=== PATIENT | male | born 1985 | race African-American/Black ===

== ENCOUNTER → 2025-03-22 | Outpatient (CLI) | payer MEDICAID, SELFPAY ==
[2025-03-22 10:52] LABS: Hematocrit 41.1 % (40-54); Hemoglobin 14.0 g/dL (13.0-16.5); Mean Corp Hgb Conc 34.1 g/dL (32-36); Mean Corpuscular Volume 84.0 fL (80-94); Mean Platelet Vol. 10.6 fl (6.2-12.0); Platelet Count 273 K/mm3 (150-450); RBC Distribution Width CV 13.7 % (11.6-14.6); RBC Distribution Width SD 42.4 fl (35.1-43.9); Red Blood Count 4.89 M/mm3 (4.6-6.2); White Blood Count 8.6 K/mm3 (4.4-11.0)
[2025-03-22 11:52] LABS: Ammonia 40.5 umol/L (16-60)
[2025-03-22 12:09] LABS: AST(SGOT) 32 U/L (<=37); Alanine Aminotransfer ALT/SGPT 44 U/L (<=46); Albumin, Serum 4.3 g/dL (3.5-5.0); Alkaline Phosphatase 95 U/L (40-129); Anion Gap 11 (5-15); BUN 9 mg/dL (4-19); BUN/Creat Ratio 11.9 RATIO (10-20); Calcium,Total 9.2 mg/dL (7.6-11.0); Carbon Dioxide 22.8 mmol/L (21.0-32.0); Chloride 107 mmol/L (98-108); Globulin 2.7 g/dL (2.2-4.2); Glucose 107 mg/dL (70-99); Magnesium 2.0 mg/dL (1.5-2.2); Potassium 4.5 mmol/L (3.3-5.1)
[2025-03-23 15:08] LABS: KEPPRA (LEVETIRACETAM) 17.5 ug/mL (10.0-40.0)
== END | disposition home or self-care (01) ==
PROVIDERS: Referring Provider Psychiatry & Neurology Neurology; Visit Provider Psychiatry & Neurology Neurology
DX: G40.909 Epilepsy, unspecified, not intractable, without status epilepticus (principal)
CPT/HCPCS: 36415; 80053; 80177; 82140; 83735; 84443; 85027; 95819

== ENCOUNTER → 2025-04-05 | Outpatient (CLI) | payer MEDICAID, SELFPAY ==
--- NOTE | 2025-04-05 07:06 | MRI_ITS ---
PROCEDURE: BRAIN W/WO CONTRAST 04/05/2025 REASON FOR EXAM: EPILEPSY TECHNIQUE: BRAIN W/WO CONTRAST Multiplanar and multisequence images were obtained. CONTRAST: Clariscan VOLUME: 27 mL COMPARISON: None. FINDINGS: There is no abnormal intracranial contrast enhancement. There are no abnormalities of the temporal lobes. There is a normal sulcal pattern and gyral configuration. There is no evidence of acute intracranial hemorrhage or infarction. The katz-white differentiation is well preserved. There is no evidence of restricted diffusion. The ventricles and basilar cisterns are normal. There are normal flow voids demonstrated in the recognized intracranial vessels. The cerebellum and brainstem are unremarkable. The cerebellar pontine angles are normal. The craniovertebral junction is normal. The sella and suprasellar regions are normal. The orbits and retro-orbital regions are unremarkable. There is nasal septal deviation to the right. There is mucoperiosteal thickening of the ethmoidal air cells and both maxillary sinuses. There are mucous retention cysts in both maxillary sinuses. There is thickening of the nasal mucosa on the left. The mastoid air cells are clear. There is normal bone marrow signal in the skull base and calvarium. MRI/Brain W/WO Contrast IMPRESSION: 1. No evidence of intracranial pathology. 2. Chronic bilateral ethmoidal and maxillary sinusitis. 3. Left rhinitis. Reading Location: [place] [id number]
--- NOTE | 2025-04-05 07:06 | MRI_ITS ---
PROCEDURE: BRAIN W/WO CONTRAST 04/05/2025 REASON FOR EXAM: EPILEPSY TECHNIQUE: BRAIN W/WO CONTRAST Multiplanar and multisequence images were obtained. CONTRAST: Clariscan VOLUME: 27 mL COMPARISON: None. FINDINGS: There is no abnormal intracranial contrast enhancement. There are no abnormalities of the temporal lobes. There is a normal sulcal pattern and gyral configuration. There is no evidence of acute intracranial hemorrhage or infarction. The katz-white differentiation is well preserved. There is no evidence of restricted diffusion. The ventricles and basilar cisterns are normal. There are normal flow voids demonstrated in the recognized intracranial vessels. The cerebellum and brainstem are unremarkable. The cerebellar pontine angles are normal. The craniovertebral junction is normal. The sella and suprasellar regions are normal. The orbits and retro-orbital regions are unremarkable. There is nasal septal deviation to the right. There is mucoperiosteal thickening of the ethmoidal air cells and both maxillary sinuses. There are mucous retention cysts in both maxillary sinuses. There is thickening of the nasal mucosa on the left. The mastoid air cells are clear. There is normal bone marrow signal in the skull base and calvarium. MRI/Brain W/WO Contrast IMPRESSION: 1. No evidence of intracranial pathology. 2. Chronic bilateral ethmoidal and maxillary sinusitis. 3. Left rhinitis. Reading Location: [place] [id number]
--- OUTSIDE RECORDS SUMMARY | 2025-04-05 07:12 | XMS RPT_ITS | CCD ---
Author Organization [facility] ion [facility] Care Team Providers Care Relay Repairer Name Role Phone Unavailable Primary Care Provider Unavailtressa Vo MD, Leida Camacho Primary Care Provider Dave Vo MD Primary Care Provider ZEKE GONSALES Attending Unavailable RAMA LIANG Attending Unavailable ZEKE GONSALES Referring Unavailable RAMA LIANG Attending Unavailable DR LEIDA VO MD Primary Care Unavailab BETZAIDA Casanova Attending Unavailable Michael Alvarado MD Primary Care Provider [phone] REFERRING, WINNIE CORNELIUS ID Attending Unavailable DR LEIDA VO MD Primary Care Unavailab MICHAEL Erickson Primary Care Unavailable Unavailable Primary Care Provider UnavailLEIDA Desouza Referring Unavailable JODIE VOOEris Camacho Primary Care Unavailable JODIE VOOJ R Referring Unavailable JODIE VOOEris Camacho Primary Care Unavailable MICHAEL ALVARADO Attending Unavailable SELF Referring Unavailable AL SAIF, ALAA MAHDI Primary Care Unavailable AL SARAYO, ALAA MAHERIC Primary Care Unavailable Dr. Benito Palmer MD Attending Provider Dr. Benito Palmer MD Referring Provider JUSTUS SALDANA Primary Care Provider Benito Palmer Attending Unavailable Benito Palmer Attending Unavailable Benito Palmer Referring Unavailable RAJANI PINK Primary Care Unavailable RAJANI PINK Primary Care Unavailable Benito Palmer Attending Unavailable Benito Palmer Referring Unavailable Allergies Allergy Classification Reported Allergen(s) Allergy Type Date of Onset Reaction(s) Facility (10 sources) Ethinyl Estradiol / Levonorgestrel; Translations: [LEVONORGESTREL-E THINYL ESTRAD] Drug Allergy 02-13-2022 Cough [facility] Medications Current Medications Medication Drug Class(es) Dates Sig (Normalized) Sig (Original) cenobamate 100 mg oral tablet (1 source) Start: 5 take 1 tablet by mouth once daily Cenobamate (Xcopri) 100 mg tablet Active 100 mg PO DAILY 30 February 25, 2025 12:00am Begin after completing Xcopri 50mg/100mg titration pack. Cenobamate (1 source) Start: 5 take 1 tablet by mouth once Cenobamate (Xcopri Titration Pack) 12.5 mg (14)- 25 mg (14) tablets,dose pack Active 0 PO per package directions February 25, 2025 12:00am Week 1 to 4: PO PER PKG DIR Cenobamate (1 source) Start: 5 take 1 tablet by mouth once Cenobamate (Xcopri Titration Pack) 50 mg (14)- 100 mg (14) tablets,dose pack Active 0 PO per package directions February 25, 2025 12:00am Week 5 to 8 PO PER PKG DIR hydroCHLOROthiazide 25 mg oral tablet (5 sources) Thiazide Diuretic Start: 4 End: 6 take 1 tablet by mouth once daily hydroCHLOROthiazide 25 mg tablet Indications: Essential hypertension Take 1 tablet by mouth once daily. 90 tablet 3 11/30/2024 11/30/2025 Active levETIRAcetam 750 mg oral tablet (20 sources) Start: 5 End: 5 take 2 tablets by mouth twice daily Levetiracetam 750 mg tablet Active 1500 mg PO TWICE A DAY 120 February 25, 2025 1:29pm Start: 01-17-2025 End: 02-16-2025 take 2 tablets by mouth twice daily levETIRAcetam (KEPPRA) 750 mg tablet Take 2 tablets by mouth two times a day. 120 tablet 01/17/2025 02/16/2025 Active Start: 11-30-2024 End: 05-29-2025 take 1 tablet by mouth twice daily levETIRAcetam (KEPPRA) 1,000 mg tablet Indications: Seizure disorder (HCC) Take 1 tablet by mouth two times a day. 180 tablet 1 11/30/2024 05/29/2025 Active Start: 11-11-2023 End: 11-30-2024 take 1 tablet by mouth in the morning levETIRAcetam (KEPPRA) 750 mg tablet TAKE 1 TABLET (750 MG) BY MOUTH IN THE MORNING AND 1 TABLET (750 MG) BEFORE BEDTIME. 05/28/2024 11/30/2024 Discontinued (Changing Therapy/Dosage Form) Start: 02-13-2022 End: 08-12-2022 take 1 tablet by mouth twice daily levETIRAcetam (KEPPRA) 1,000 mg tablet Indications: Seizure disorder (HCC) Take 1 tablet by mouth twice daily. 60 tablet 5 02/13/2022 Active Start: 02-04-2022 End: 02-13-2022 take 1 tablet by mouth twice daily levETIRAcetam (KEPPRA) 500 mg tablet Keppra 500 mg tablet Take 1 tablet twice a day by oral route. 0 02/04/2022 02/13/2022 Discontinued Comment on above: Keppra 500 mg tablet Take 1 tablet twice a day by oral route. Take 1 tablet by sherry th twice daily. metoprolol tartrate 50 mg oral tablet (7 sources) beta-Adrenergic Akin Start: 11-30-2024 End: 11-30-2025 take 1 tablet by mouth twice daily Metoprolol Tartrate 50 mg tablet Active 50 mg PO TWICE A DAY February 25, 2025 12:00am Start: 06-16-2024 End: 11-30-2024 metoprolol tartrate, short a cting, (LOPRESSOR) 100 mg tablet Take 50 mg by mouth every 12 hours. 06/16/2024 11/30/2024 Discontinued Problems Active Problems Problem Classification Problem Date Documented Da te Episodic/Chronic Epilepsy; convulsions (20 sources) Seizure disorder; Translations: [Epilepsy, unspecified, not intractable, without status epilepticus] Onset: 02-13-2022 Chronic Epilepsy; convulsions (5 sources) Seizure disorder; Translations: [Seizure] 11-30-2024 Episodic Essential hypertension (16 sources) Essential hypertension; Translations: [Essential (primary) hypertension] Onset: 02-13-2022 Resolved: 11-30-2024 Chronic Other connective tissue disease (9 sources) Tendinitis of left rotator cuff; Translations: [Other shoulder lesions, left shoulder] Onset: 11-30-2024 11-30-2024 Episodic Other connective tissue disease (1 source) Other shoulder lesions, left shoulder; Translations: [Tendinitis of left rotator cuff] Onset: 11-30-2024 Episodic Other nervous system disorders (1 source) Personal history of other diseases of the nervous system and sense organs; Translations: [History of epilepsy] Onset: 01-17-2025 Episodic Other nutritional; endocrine; and metabolic disorders (5 sources) Body mass index 40+ - severely obese; Translations: [Morbid (severe) obesity due to excess calories] Onset: 11-30-2024 11-30-2024 Chronic Other nutritional; endocrine; and metabolic disorders (1 source) Morbid (severe) obesity due to excess calories; Translations: [Obesity, Class III, BMI 40-49.9 (morbid obesity) (HCC)] Onset: 11-30-2024 Chronic Substance-related disorders (11 sources) Smoker; Translations: [Nicotine dependence, unspecified, uncomplicated] Onset: 02-13-2022 Chronic Past or Other Problems Problem Classification Problem Date Documented Da te Episodic/Chronic Other nutritional; endocrine; and metabolic disorders (9 sources) Obese class II; Translations: [Obesity, unspecified] Onset: 02-13-2022 Resolved: 11-30-2024 Chronic Other nutritional; endocrine; and metabolic disorders (4 sources) Morbid obesity; Translations: [Morbid (severe) obesity due to excess calories] Resolved: 11-30-2024 11-30-2024 Chronic Results Test Name Value Interpretation Reference Range Facility KEPPRA (LEVETIRACETAM)on KEPPRA 17.5 ug/mL Normal 10.0-40.0 [facility] Comment on above: Result Comment: Perf ormed at: [facility] - [facility] [address] [id number] Environmental Services Floor Tech: Brina Quiroz MD, Phone: [phone] Performed By: #### L 500.4652, L3310.0000, L100.0500, J701.9520, L503.5510, L501.5200 #### [facility] [address] [place], [address] Ammoniaon 03-22-2025 Ammonia (P) [Moles/Vol] 40.5 umol/L Normal 16-60 [facility] Comment on above: Performed By: #### L 500.4050, L3310.0000, L100.0500, L501.9520, L503.5510, L501.5200 #### [facility] [address] [place], [address] Anion gap in Serum or Plasma Ordered By: Benito Palmer on 03-22-2025 Anion gap [Moles/Vol] 11 mmol/L 5-15 [facility] BUN/creatinine ratioOrdered By: Benito Palmer on 03-22-2025 Urea nitrogen/Creatinine [Mass ratio] 11.9 mg/mg 10- [facility] Bilirubin, totalOrdered By: Benito Palmer on 03-22-2025 Bilirubin [Mass/Vol] 0.45 mg/dL 0.00-1.30 [facility] CBC-Complete Blood Cnt No Di ffon 03-22-2025 Erythrocyte distribution width (RBC) [Ratio] 13.7 % Normal 11.6-14.6 [facility] Comment on above: Performed By: #### L 500.4050, L3310.0000, L100.0500, L501.9520, L503.5510, L501.5200 #### [facility] [address] [place], [address] Hematocrit (Bld) [Volume fraction] 41.1 % Normal 40-54 [facility] Comment on above: Performed By: #### L 500.4050, L3310.0000, L100.0500, L501.9520, L503.5510, L501.5200 #### [facility] [address] [place], [address] Hemoglobin (Bld) [Mass/Vol] 14.0 g/dL Normal 13.0-16.5 [facility] Comment on above: Performed By: #### L 500.4050, L3310.0000, L100.0500, L501.9520, L503.5510, L501.5200 #### [facility] [address] [place], [address] MCH (RBC) [Entitic mass] 28.6 pg Normal 27.0-32.0 [facility] Comment on above: Performed By: #### L 500.4050, L3310.0000, L100.0500, L501.9520, L503.5510, L501.5200 #### [facility] [address] [place], [address] MCHC (RBC) [Mass/Vol] 34.1 g/dL Normal 32-36 [facility] Comment on above: Performed By: #### L 500.4050, L3310.0000, L100.0500, L501.9520, L503.5510, L501.5200 #### [facility] [address] [place], [address] MCV (RBC) [Entitic vol] 84.0 fL Normal 80-94 [facility] Comment on above: Performed By: #### L 500.4050, L3310.0000, L100.0500, L501.9520, L503.5510, L501.5200 #### [facility] [address] [place], [address] Platelet mean volume (Bld) [Entitic vol] 10.6 fL Normal 6.2-12.0 [facility] Comment on above: Performed By: #### L 500.4050, L3310.0000, L100.0500, L501.9520, L503.5510, L501.5200 #### [facility] [address] [place], [address] Platelets (Bld) [#/Vol] 273 10*3/uL Normal 150-450 [facility] Comment on above: Performed By: #### L 500.4050, L3310.0000, L100.0500, L501.9520, L503.5510, L501.5200 #### [facility] [address] [place], [address] RBC (Bld) [#/Vol] 4.89 10*6/uL Normal 4.6-6.2 [facility] Comment on above: Performed By: #### L 500.4050, L3310.0000, L100.0500, L501.9520, L503.5510, L501.5200 #### [facility] [address] [place], [address] RDW SD 42.4 fl Normal 35.1-43.9 [facility] Comment on above: Performed By: #### L 500.4050, L3310.0000, L100.0500, L501.9520, L503.5510, L501.5200 #### [facility] [address] [place], [address] WBC (Bld) [#/Vol] 8.6 10*3/uL Normal 4.4-11.0 [facility] Comment on above: Performed By: #### L 500.4050, L3310.0000, L100.0500, L501.9520, L503.5510, L501.5200 #### [facility] [address] [place], [address] Carbon dioxide, total [Moles /volume] in Central venous bloodOrdered By: Benito Palmer on 03-22-2025 CO2 [Moles/Vol] 22.8 mmol/L 21.0-32.0 [facility] Chloride assayOrdered By: Ra isaac Palmer on 03-22-2025 Chloride [Moles/Vol] 107 mmol/L 98-108 [facility] Comprehensive Metabolic Prof ilon 03-22-2025 Albumin [Mass/Vol] 4.3 g/dL Normal 3.5-5.0 [facility] Comment on above: Performed By: #### L 500.4050, L3310.0000, L100.0500, L501.9520, L503.5510, L501.5200 #### [facility] [address] [place], [address] Albumin/Globulin [Mass ratio] 1.6 {ratio} Normal 0.9-2.4 [facility] Comment on above: Performed By: #### L 500.4050, L3310.0000, L100.0500, L501.9520, L503.5510, L501.5200 #### [facility] [address] [place], [address] ALK PHOS 95 U/L Normal 40-129 [facility] Comment on above: Performed By: #### L 500.4050, L3310.0000, L100.0500, L501.9520, L503.5510, L501.5200 #### [facility] [address] [place], [address] ALT [Catalytic activity/Vol] 44 U/L Normal <=46 [facility] Comment on above: Performed By: #### L 500.4050, L3310.0000, L100.0500, L501.9520, L503.5510, L501.5200 #### [facility] [address] [place], [address] AST [Catalytic activity/Vol] 32 U/L Normal <=37 [facility] Comment on above: Performed By: #### L 500.4050, L3310.0000, L100.0500, L501.9520, L503.5510, L501.5200 #### [facility] [address] [place], [address] Bilirubin [Mass/Vol] 0.45 mg/dL Normal 0.00-1.30 [facility] Comment on above: Performed By: #### L 500.4050, L3310.0000, L100.0500, L501.9520, L503.5510, L501.5200 #### [facility] [address] [place], [address] BUN/CRE 11.9 RATIO Normal 10-20 [facility] Comment on above: Performed By: #### L 500.4050, L3310.0000, L100.0500, L501.9520, L503.5510, L501.5200 #### [facility] [address] [place], [address] Calcium [Mass/Vol] 9.2 mg/dL Normal 7.6-11.0 [facility] Comment on above: Performed By: #### L 500.4050, L3310.0000, L100.0500, L501.9520, L503.5510, L501.5200 #### [facility] [address] [place], [address] Chloride [Moles/Vol] 107 mmol/L Normal 98-108 [facility] Comment on above: Performed By: #### L 500.4050, L3310.0000, L100.0500, L501.9520, L503.5510, L501.5200 #### [facility] [address] [place], [address] CO2 [Moles/Vol] 22.8 mmol/L Normal 21.0-32.0 [facility] Comment on above: Performed By: #### L 500.4050, L3310.0000, L100.0500, L501.9520, L503.5510, L501.5200 #### [facility] [address] [place], [address] Creatinine [Mass/Vol] 0.73 mg/dL Normal 0.70-1.20 [facility] Comment on above: Performed By: #### L 500.4050, L3310.0000, L100.0500, L501.9520, L503.5510, L501.5200 #### [facility] [address] [place], [address] GAP 11 Normal 5-15 [facility] Comment on above: Performed By: #### L 500.4050, L3310.0000, L100.0500, L501.9520, L503.5510, L501.5200 #### [facility] [address] [place], [place], [id number] (560) GFR/1.73 sq M.predicted among non-blacks MDRD (S/P/Bld) [Vol rate/Area] 119 mL/min/{1.73_m2} Normal >60 [facility] Comment on above: Result Comment: mL/m in/1.73m2 CKD-EPI Creatinine Equation (2020) Performed By: #### L 500.4050, L3310.0000, L100.0500, L501.9520, L503.5510, L501.5200 #### [facility] [address] [place], [address] Globulin (S) [Mass/Vol] 2.7 g/dL Normal 2.2-4.2 [facility] Comment on above: Performed By: #### L 500.4050, L3310.0000, L100.0500, L501.9520, L503.5510, L501.5200 #### [facility] [address] [place], [address] Glucose [Mass/Vol] 107 mg/dL High 70-99 [facility] Comment on above: Performed By: #### L 500.4050, L3310.0000, L100.0500, L501.9520, L503.5510, L501.5200 #### [facility] [address] [place], [address] Potassium [Moles/Vol] 4.5 mmol/L Normal 3.3-5.1 [facility] Comment on above: Performed By: #### L 500.4050, L3310.0000, L100.0500, L501.9520, L503.5510, L501.5200 #### [facility] [address] [place], [address] Sodium [Moles/Vol] 141 mmol/L Normal 133-145 [facility] Comment on above: Performed By: #### L 500.4050, L3310.0000, L100.0500, L501.9520, L503.5510, L501.5200 #### [facility] [address] [place], [address] T PROT 6.9 g/dL Normal 5.9-8.4 [facility] Comment on above: Performed By: #### L 500.4050, L3310.0000, L100.0500, L501.9520, L503.5510, L501.5200 #### [facility] [address] [place], [address] Urea nitrogen [Mass/Vol] 9 mg/dL Normal 4-19 [facility] Comment on above: Performed By: #### L 500.4050, L3310.0000, L100.0500, L501.9520, L503.5510, L501.5200 #### [facility] [address] [place], [address] Erythrocyte distribution wid th ratioOrdered By: Benito Palmer on 03-22-2025 Erythrocyte distribution width (RBC) [Ratio] 13.7 % 11.6-14.6 [facility] Erythrocyte distribution wid th standard deviationOrdered By: Benito Palmer on 03-22-2025 Erythrocyte distribution width (RBC) [Ratio] 42.4 fl 35.1-43.9 [facility] Glomerular filtration rate ( GFR) estimation/1.73 sq m using serum, plasma, or whole bOrdered By: Benito Palmer on 03-22-2025 GFR/1.73 sq M.predicted among non-blacks MDRD (S/P/Bld) [Vol rate/Area] 119 mL/min/{1.73_m2} >60 [facility] Comment on above: mL/min/1.73m2 CKD-EP I Creatinine Equation (2020) Hematocrit Auto (Bld) [Volum e fraction]Ordered By: Benito Palmer on 03-22-2025 Hematocrit (Bld) [Volume fraction] 41.1 % 40-54 [facility] Hemoglobin measurementOrdere d By: Benito Palmer on 03-22-2025 Hemoglobin (Bld) [Mass/Vol] 14.0 g/dL 13.0-16.5 [facility] - Chemistry and C hemistry - challengeOrdered By: Benito Palmer on 03-22-2025 AST [Catalytic activity/Vol] 32 U/L <38 [facility] LevetiracetamOrdered By: Ted Palmer on 03-22-2025 levETIRAcetam [Mass/Vol] 17.5 ug/mL 10.0-40.0 [facility] Comment on above: Performed at: [address] [id number] Director: Brina Quiroz MD, Phone: [phone] MCV (mean corpuscular volume ) determinationOrdered By: Benito Palmer on 03-22-2025 MCV (RBC) [Entitic vol] 84.0 fL 80-94 [facility] Magnesiumon 03-22-2025 Magnesium [Mass/Vol] 2.0 mg/dL Normal 1.5-2.2 [facility] Comment on above: Performed By: #### L 500.4050, L3310.0000, L100.0500, L501.9520, L503.5510, L501.5200 #### [facility] [address] [place], [address] Magnesium measurement (mass/ volume)Ordered By: Benito Palmer on 03-22-2025 Magnesium (Unsp spec) [Mass/Vol] 2.0 mg/dL 1.5-2.2 [facility] Mean corpuscular hemoglobin (MCH) determinationOrdered By: Benito Palmer on 03-22-2025 MCH (RBC) [Entitic mass] 28.6 pg 27.0-32.0 [facility] Mean corpuscular hemoglobin concentration (MCHC) determinationOrdered By: Benito Palmer on 03-22-2025 MCHC (RBC) [Mass/Vol] 34.1 g/dL 32-36 [facility] Mean platelet volume determi nationOrdered By: Benito Palmer on 03-22-2025 Platelet mean volume (Bld) [Entitic vol] 10.6 fL 6.2-12.0 [facility] Platelet countOrdered By: Ra isaac Palmer on 03-22-2025 Platelets (Bld) [#/Vol] 273 10*3/uL 150-450 [facility] Potassium measurement (mass/ volume)Ordered By: Benito Palmer on 03-22-2025 Potassium (Unsp spec) [Mass/Vol] 4.5 mmol/L 3.3-5.1 [facility] RBC Auto (Bld) [#/Vol]Ordere d By: Benito Palmer on 03-22-2025 RBC (Bld) [#/Vol] 4.89 10*6/uL 4.6-6.2 [facility] Serum creatinine measurement (mass/volume)Ordered By: Benito Palmer on 03-22-2025 Creatinine [Mass/Vol] 0.73 mg/dL 0.70-1.20 [facility] Serum globulin measurementOr dered By: Benito Palmer on 03-22-2025 Globulin (S) [Mass/Vol] 2.7 g/dL 2.2-4.2 [facility] Serum glucose measurement (m ass/volume)Ordered By: Benito Palmer on 03-22-2025 Glucose [Mass/Vol] 107 mg/dL High 70-99 [facility] Serum or plasma alanine ramirez otransferase (ALT) measurementOrdered By: Benito Palmer on 03-22-2025 ALT [Catalytic activity/Vol] 44 U/L <47 [facility] Serum or plasma albumin valorie urement (mass/volume)Ordered By: Benito Palmer on 03-22-2025 Albumin [Mass/Vol] 4.3 g/dL 3.5-5.0 [facility] Serum or plasma albumin/glob ulin mass ratioOrdered By: Benito Palmer on 03-22-2025 Albumin/Globulin [Mass ratio] 1.6 {ratio} 0.9-2.4 [facility] Serum or plasma alkaline kylah sphatase measurementOrdered By: Benito Palmer on 03-22-2025 ALP [Catalytic activity/Vol] 95 U/L 40-129 [facility] Serum or plasma calcium valorie urement (mass/volume)Ordered By: Benito Palmer on 03-22-2025 Calcium [Mass/Vol] 9.2 mg/dL 7.6-11.0 [facility] Serum or plasma urea nitroge n measurement (mass/volume)Ordered By: Benito Palmer on 03-22-2025 Urea nitrogen [Mass/Vol] 9 mg/dL 4-19 [facility] Sodium levelOrdered By: Elbert Palmer on 03-22-2025 Sodium [Moles/Vol] 141 mmol/L 133-145 [facility] TSH DL <= 0.005 mIU/L QnOrde red By: Benito Palmer on 03-22-2025 TSH Qn 1.270 uIU/mL 0.300-4.200 [facility] Thyroid Stim Hormone (TSH)on 03-22-2025 TSH 1.270 uIU/mL Normal 0.300-4.200 [facility] Comment on above: Performed By: #### L 500.4050, L3310.0000, L100.0500, L501.9520, L503.5510, L501.5200 #### [facility] [address] [place], [place], [id number] Total proteinOrdered By: Ted Palmer on 03-22-2025 Protein [Mass/Vol] 6.9 g/dL 5.9-8.4 [facility] Venous blood ammonia measure mentOrdered By: Benito Palmer on 03-22-2025 Ammonia (P) [Moles/Vol] 40.5 umol/L 16-60 [facility] White blood cell (WBC) count Ordered By: Benito Palmer on 03-22-2025 WBC (Bld) [#/Vol] 8.6 10*3/uL 4.4-11.0 [facility] Neurology Visit Reporton Neurology Visit Report [facility] [address], [address] [place] [address] OFFICE VISIT Date of Service: 02/25/25 MR#: [id number] Acct: [id number] Name: EVIN OVIEDO Rep #: [id number] : 1985 Provider: Dr. Benito cho MD Age/Sex: 39/M Location: [facility] Status: Signed HPI HPI Chief Complaint: Establish Care Details: History: The patient is a 39-year-old right-handed male with a past medical history of hypertension and epilepsy who presents for evaluation of his epilepsy. He is accompanied by his mother. He began to have seizures in 2022. He states that his first seizure occurred in December 2022 and was nocturnal clonic seizure (of note, records indicate that a head CT was performed on 02/04/2022 apparently for new onset seizure). He had associated tongue biting. He had postictal lethargy and confusion. He had upper back and left shoulder muscle soreness. He is continue to have some left shoulder pain since that time. He may possibly have been somewhat sleep deprived prior to the seizure otherwise he is unaware of any precipitating event. He had another nocturnal generalized seizure in January 2023 after which she was seen by a neurologist and levetiracetam was initiated. Since January 2023 he had at least 13 further seizures, the last of which occurred in December 2024. Some of the seizures were nocturnal generalized seizures. Some of the seizures occurred during wakefulness and manifested with drooling and staring episodes during which he was unresponsive and was unaware of his surroundings. Some of these daytime seizures progressed to generalized clonic seizures. He does not have any preceding aura. He has postictal confusion and lethargy. His dose of levetiracetam was increased from 1000 mg twice daily to 1500 mg twice daily following his last seizure in December 2024. He is experiencing depression and easy irritability as a side effect to levetiracetam. He reports that his prior evaluation with head MRI and EEG were unremarkable (official reports of these studies are presently not available). He does not have any history of seizures prior to 2022. He denies having numbness, weakness, dizziness, lightheadedness or vision change. He does not have any history of concussion or TALENT ACQUISITION COORDINATOR infection. He does not have any significant history. He has been experiencing headaches since around 2021. His headaches are mild right-sided headaches with which she has associated photophobia, phonophobia and nausea. He denies having neck pain. The patient was seen in the emergency room following his last seizure in December 2024. His levetiracetam level was low at that time; he states that he may have missed a dose prior to the seizure. Past Medical History: As above. There is no history of diabetes mellitus, heart disease, lung disease, stroke, seizure prior to 2022, thyroid disease, cancer, renal disease, sleep apnea, or hyperlipidemia. Social History: He smokes tobacco. He has used marijuana. His last use was 6 months ago. He denies any history of other illicit drug use. There is no history of alcohol abuse. Family History: The patient's great grandmother had a stroke. There is no family history of seizure or cerebral aneurysm. Review of Systems: As above. The patient has not had any recent fever, rash, weight change, chest pain, shortness of breath, gastrointestinal problems or urinary problems. He has some insomnia and at times awakens during the night. He snores at night. He does not have daytime hypersomnia. He has depression and anxiety. Physical Exam: General: Well-developed, well-nourished male in no acute distress. Neuro: The patient is awake and alert and responds appropriately; speech is fluent; language function is within normal limits Cranial nerves: PERRL, 3mm bilaterally; EOMI; visual ruiz are full; visual acuity is 20/30 bilaterally; face is symmetrical; tongue is midline; there are no deficits to pinprick Cerebellar system: No nystagmus or dysmetria Deep tendon reflexes: Absent at the ankles, knees, biceps bilaterally, triceps bilaterally, brachioradialis bilaterally; plantar responses are downward bilaterally Motor: Strength 5/5 in the biceps bilaterally, abductor pollicis brevis muscles bilaterally, first dorsal interosseous muscles bilaterally, triceps bilaterally, deltoid bilaterally quadriceps bilaterally and foot dorsiflexors bilaterally; no drift he does exhibit slight limitation of movement on full elevation of the left arm Sensory: There are no deficits to soft touch or vibration; slight decreased pinprick is noted in the left index finger Gait: Unremarkable HEENT: Normocephalic; atraumatic; tympanic membranes are clear Neck: No bruits Heart: Regular rhythm and rate Extremities: No cyanosis or edema; Tinel's sign is negative at the left wrist and left elbow; dorsalis pedis pulses are +2 bilaterally Sup (more content not included)... Normal [facility] Telephone Encounteron 2024 Senior Planner Authentication Interface Message Text Neurology Clinical Water Pollution Scientist Note Attempted to call patient. LVM to return call to the Neurology department to schedule a neurology appt for seizures. Letter sent JANE Barney, RN, CMSRN Clinical Water Pollution Scientist, Neurology Normal [facility] 02-05-2025 CNCO Letter Text Normal [facility] CBC W Auto Differential pane l (Bld)on 01-17-2025 Basophils (Bld) [#/Vol] 10*3/uL Normal <0.[address] [facility] Comment on above: Order Comment: Speci men Type: BLOOD SPECIMEN Ordering Facility: [facility] Address: [address] [place] [address] Performed By: #### 5 7021-8 #### [facility] CLIA [id number] [address] [place] [address] [place] Basophils/100 WBC (Bld) 0.2 % Normal [facility] Comment on above: Order Comment: Tevini deni Type: BLOOD SPECIMEN Ordering Facility: [facility] Address: [address] [place] [address] Performed By: #### 5 7021-8 #### [facility] CLIA [id number] [address] [place] [address] [place] Differential cell count method Nom (Bld) Auto Normal [facility] Comment on above: Order Comment: Speci men Type: BLOOD SPECIMEN Ordering Facility: [facility] Address: [address] [place] [address] Performed By: #### 5 7021-8 #### [facility] CLIA [id number] [address] [place] [address] [place] Eosinophils (Bld) [#/Vol] 0.15 10*3/uL Normal <0.46 [facility] Comment on above: Order Comment: Speci men Type: BLOOD SPECIMEN Ordering Facility: [facility] Address: [address] [place] [address] Performed By: #### 5 7021-8 #### [facility] CLIA [id number] [address] [place] [address] [place] Eosinophils/100 WBC (Bld) 1.4 % Normal [facility] Comment on above: Order Comment: Speci men Type: BLOOD SPECIMEN Ordering Facility: [facility] Address: [address] [place] [address] Performed By: #### 5 7021-8 #### [facility] CLIA [id number] [address] [place] [address] [place] Erythrocyte distribution width (RBC) [Ratio] 13.0 % Normal 11.5-15.0 [facility] Comment on above: Order Comment: Speci men Type: BLOOD SPECIMEN Ordering Facility: [facility] Address: [address] [place] [address] Performed By: #### 5 7021-8 #### [facility] CLIA [id number] [address] [place] [address] [place] Hematocrit (Bld) [Volume fraction] 42.9 % Normal 39.0-51.0 [facility] Comment on above: Order Comment: Speci men Type: BLOOD SPECIMEN Ordering Facility: [facility] Address: [address] [place] [address] Performed By: #### 5 7021-8 #### [facility] CLIA [id number] [address] [place], [place] [address] [place] Hemoglobin (Bld) [Mass/Vol] 14.7 g/dL Normal 13.0-17.0 [facility] Comment on above: Order Comment: Speci men Type: BLOOD SPECIMEN Ordering Facility: [facility] Address: [address] [place] [address] Performed By: #### 5 7021-8 #### [facility] CLIA [id number] [address] [place] [address] [place] Immature granulocytes (Bld) [#/Vol] 0.06 10*3/uL Normal <0.10 [facility] Comment on above: Order Comment: Speci men Type: BLOOD SPECIMEN Ordering Facility: [facility] Address: [address] [place] [address] Performed By: #### 5 7021-8 #### [facility] CLIA [id number] [address] [place] [address] [place] Immature granulocytes/100 WBC (Bld) 0.6 % Normal [facility] Comment on above: Order Comment: Speci men Type: BLOOD SPECIMEN Ordering Facility: [facility] Address: [address] [place] [address] Performed By: #### 5 7021-8 #### [facility] CLIA [id number] [address] [place] [address] [place] Lymphocytes (Bld) [#/Vol] 1.97 10*3/uL Normal 1.00-4.00 [facility] Comment on above: Order Comment: Speci men Type: BLOOD SPECIMEN Ordering Facility: [facility] Address: [address] [place] [address] Performed By: #### 5 7021-8 #### [facility] CLIA [id number] [address] [place], [place] [address] [place] Lymphocytes/100 WBC (Bld) 18.7 % Normal [facility] Comment on above: Order Comment: Speci men Type: BLOOD SPECIMEN Ordering Facility: [facility] Address: [address] [place] [address] Performed By: #### 5 7021-8 #### [facility] CLIA [id number] [address] [place] [address] [place] MCH (RBC) [Entitic mass] 28.4 pg Normal 26.0-34.0 [facility] Comment on above: Order Comment: Speci men Type: BLOOD SPECIMEN Ordering Facility: [facility] Address: [address] [place] [address] Performed By: #### 5 7021-8 #### [facility] CLIA [id number] [address] [place] [address] [place] MCHC (RBC) [Mass/Vol] 34.3 g/dL Normal 30.5-36.0 [facility] Comment on above: Order Comment: Speci men Type: BLOOD SPECIMEN Ordering Facility: [facility] Address: [address] [place] [address] Performed By: #### 5 7021-8 #### [facility] CLIA [id number] [address] [place] [address] [place] MCV (RBC) [Entitic vol] 82.8 fL Normal 80.0-100.[address] [facility] Comment on above: Order Comment: Speci men Type: BLOOD SPECIMEN Ordering Facility: [facility] Address: [address] [place] [address] Performed By: #### 5 7021-8 #### [facility] CLIA [id number] [address] [place] [address] [place] Monocytes (Bld) [#/Vol] 0.76 10*3/uL Normal <0.87 [facility] Comment on above: Order Comment: Speci men Type: BLOOD SPECIMEN Ordering Facility: [facility] Address: [address] [place] [address] Performed By: #### 5 7021-8 #### [facility] CLIA [id number] [address] [place] [address] [place] Monocytes/100 WBC (Bld) 7.2 % Normal [facility] Comment on above: Order Comment: Speci men Type: BLOOD SPECIMEN Ordering Facility: [facility] Address: [address] [place] [address] Performed By: #### 5 7021-8 #### [facility] CLIA [id number] [address] [place] [address] [place] Neutrophils (Bld) [#/Vol] 7.55 10*3/uL High 1.45-7.50 [facility] Comment on above: Order Comment: Speci men Type: BLOOD SPECIMEN Ordering Facility: [facility] Address: [address] [place] [address] Performed By: #### 5 7021-8 #### [facility] CLIA [id number] [address] [place] [address] [place] Neutrophils/100 WBC (Bld) 71.9 % Normal [facility] Comment on above: Order Comment: Speci men Type: BLOOD SPECIMEN Ordering Facility: [facility] Address: [address] [place] [address] Performed By: #### 5 7021-8 #### [facility] CLIA [id number] [address] [place] [address] [place] Nucleated RBC (Bld) [#/Vol] 10*3/uL Normal <0.01 [facility] Comment on above: Order Comment: Speci men Type: BLOOD SPECIMEN Ordering Facility: [facility] Address: [address] [place] [address] Performed By: #### 5 7021-8 #### [facility] CLIA [id number] [address] [place] [address] [place] Nucleated RBC/100 WBC (Bld) [Ratio] 0.0 /100 WBC Normal [facility] Comment on above: Order Comment: Speci men Type: BLOOD SPECIMEN Ordering Facility: [facility] Address: [address] [place] [address] Performed By: #### 5 7021-8 #### [facility] CLIA [id number] [address] [place], [place] [address] [place] Platelet mean volume (Bld) [Entitic vol] 10.6 fL Normal 9.0-12.7 [facility] Comment on above: Order Comment: Speci men Type: BLOOD SPECIMEN Ordering Facility: [facility] Address: [address] [place] [address] Performed By: #### 5 7021-8 #### [facility] CLIA [id number] [address] [place] [address] [place] Platelets (Bld) [#/Vol] 295 10*3/uL Normal 150-400 [facility] Comment on above: Order Comment: Speci men Type: BLOOD SPECIMEN Ordering Facility: [facility] Address: [address] [place] [address] Performed By: #### 5 7021-8 #### [facility] CLIA [id number] [address] [place] [address] [place] RBC (Bld) [#/Vol] 5.18 10*6/uL Normal 4.20-6.00 [facility] Comment on above: Order Comment: Speci men Type: BLOOD SPECIMEN Ordering Facility: [facility] Address: [address] [place] [address] Performed By: #### 5 7021-8 #### [facility] CLIA [id number] [address] [place] [address] [place] WBC (Bld) [#/Vol] 10.51 10*3/uL Normal 3.70-11.00 [facility] Comment on above: Order Comment: Speci men Type: BLOOD SPECIMEN Ordering Facility: [facility] Address: [address] [place] [address] Performed By: #### 5 7021-8 #### [facility] CLIA [id number] [address] [place], [place] [address] [facility] [place] Comprehensive metabolic 2000 panelon 01-17-2025 Albumin [Mass/Vol] 3.9 g/dL Normal 3.2-5.0 [facility] Comment on above: Order Comment: Speci men Type: BLOOD SPECIMEN Ordering Facility: [facility] Address: [address] [place] [address] Performed By: #### 2 4323-8, #### [facility] CLIA [id number] [address] [place] [address] [place] ALP [Catalytic activity/Vol] 112 U/L Normal 45-117 [facility] Comment on above: Order Comment: Speci men Type: BLOOD SPECIMEN Ordering Facility: [facility] Address: [address] [place] [address] Performed By: #### 2 4323-8, #### [facility] CLIA [id number] [address] [place] [address] [place] ALT [Catalytic activity/Vol] 32 U/L Normal 13-61 [facility] Comment on above: Order Comment: Speci men Type: BLOOD SPECIMEN Ordering Facility: [facility] Address: [address] [place] [address] Result Comment: Resu lts may be falsely depressed after the administration of Sulfasalazine and/or Sulfapyridine. Performed By: #### 2 4323-8, #### [facility] CLIA [id number] [address] [place], [place] [address] [place] Anion gap [Moles/Vol] 7 mmol/L Normal 5-16 [facility] Comment on above: Order Comment: Speci men Type: BLOOD SPECIMEN Ordering Facility: [facility] Address: [address] [place] [address] Performed By: #### 2 4323-8, #### [facility] CLIA [id number] [address] [place] [address] [place] AST [Catalytic activity/Vol] 20 U/L Normal 8-34 [facility] Comment on above: Order Comment: Speci men Type: BLOOD SPECIMEN Ordering Facility: [facility] Address: [address] [place] [address] Result Comment: Resu lts may be falsely depressed after the administration of Sulfasalazine and/or Sulfapyridine. Performed By: #### 2 4323-8, #### [facility] CLIA [id number] [address] [place], [place] [address] [place] Bilirubin [Mass/Vol] 0.3 mg/dL Normal 0.2-1.0 [facility] Comment on above: Order Comment: Speci men Type: BLOOD SPECIMEN Ordering Facility: [facility] Address: [address] [place], [place] [address] Performed By: #### 2 4323-8, #### [facility] CLIA [id number] [address] [place] [address] [place] Calcium [Mass/Vol] 9.7 mg/dL Normal 8.5-10.5 [facility] Comment on above: Order Comment: Speci men Type: BLOOD SPECIMEN Ordering Facility: [facility] Address: [address] [place], [place] [address] Performed By: #### 2 4323-8, #### [facility] CLIA [id number] [address] [place] [address] [place] Chloride [Moles/Vol] 108 mmol/L High 98-107 [facility] Comment on above: Order Comment: Speci men Type: BLOOD SPECIMEN Ordering Facility: [facility] Address: [address] [place] [address] Performed By: #### 2 4323-8, #### [facility] CLIA [id number] [address] [place], [place] [address] [place] CO2 [Moles/Vol] 26 mmol/L Normal 21-32 [facility] Comment on above: Order Comment: Speci men Type: BLOOD SPECIMEN Ordering Facility: [facility] Address: [address] [place] [address] Performed By: #### 2 4323-8, #### [facility] CLIA [id number] [address] [place] [address] [place] Creatinine [Mass/Vol] 0.90 mg/dL Normal 0.50-1.40 [facility] Comment on above: Order Comment: Abner cheema Type: BLOOD SPECIMEN Ordering Facility: [facility] Address: [address] [place] [address] Result Comment: Anel ents receiving either N-Acetylcysteine (NAC) or Metamizole prior to venipuncture, may have falsely depressed results. Performed By: #### 2 4323-8, #### [facility] CLIA [id number] [address] [place] [address] [facility] [place] Creatinine and Glomerular filtration rate.predicted panel (S/P/Bld) 112 mL/min/1.73m??? Normal >=60 [facility] Comment on above: Order Comment: Abner cheema Type: BLOOD SPECIMEN Ordering Facility: [facility] Address: [address] [place] [address] Result Comment: Sol mated Glomerular Filtration Rate (eGFR) is calculated using the 2020 CKD-EPI creatinine equation. This equation utilizes serum creatinine, sex, and age as parameters. The creatinine assay has traceable calibration to isotope dilution-mass spectrometry. Refer to KDIGO guidelines for clinical interpretation. In patients with unstable renal function, e.g. those with acute kidney injury, the eGFR may not accurately reflect actual GFR. Performed By: #### 2 4323-8, 38031-8 #### [facility] CLIA [id number] [address] [place], [place] [address] [place] Glucose [Mass/Vol] 107 mg/dL High 70-100 [facility] Comment on above: Order Comment: Abner cheema Type: BLOOD SPECIMEN Ordering Facility: [facility] Address: [address] [place] [id number] Result Comment: The [place] [employer] (ADA) provides guidance for cutoff values for fasting glucose and random glucose. The ADA defines fasting as no caloric intake for at least 8 hours. Fasting plasma glucose results between 100 to 125 mg/dL indicate increased risk for diabetes (prediabetes). Fasting plasma glucose results greater than or equal to 126 mg/dL meet the criteria for diagnosis of diabetes. In the absence of unequivocal hyperglycemia, results should be confirmed by repeat testing. In a patient with classic symptoms of hyperglycemia or hyperglycemic crisis, random plasma glucose results greater than or equal to 200 mg/dL meet the criteria for diagnosis of diabetes. Reference: Standards of Medical Care in Diabetes 2016, [place] [employer]. Diabetes Care. 2016.39(Suppl 1). Results may be falsely elevated after the administration of Sulfapyridine. Results may be falsely depressed after the administration of Sulfasalazine. Performed By: #### 2 4323-8, #### [facility] CLIA [id number] [address] [place] [address] [place] Potassium [Moles/Vol] 4.4 mmol/L Normal 3.5-5.1 [facility] Comment on above: Order Comment: Abner cheema Type: BLOOD SPECIMEN Ordering Facility: [facility] Address: [address] [place] [address] Performed By: #### 2 4328, #### [facility] CLIA [id number] [address] [place] [address] [place] Protein [Mass/Vol] 7.2 g/dL Normal 6.0-8.5 [facility] Comment on above: Order Comment: Abner cheema Type: BLOOD SPECIMEN Ordering Facility: [facility] Address: [address] [place] [address] Performed By: #### 2 4323, #### [facility] CLIA [id number] [address] [place], [place] [address] [place] Sodium [Moles/Vol] 141 mmol/L Normal 136-145 [facility] Comment on above: Order Comment: Abner cheema Type: BLOOD SPECIMEN Ordering Facility: [facility] Address: [address] [place] [address] Performed By: #### 2 4323-8, #### [facility] CLIA [id number] [address] [place], [place] [address] [place] Urea nitrogen [Mass/Vol] 8 mg/dL Normal 7-26 [facility] Comment on above: Order Comment: Speci men Type: BLOOD SPECIMEN Ordering Facility: [facility] Address: [address], [place] [address] Performed By: #### 2 4323-8, 32529-1 #### [facility] CLIA [id number] [address] [place] [address] [facility] [place] ED NOTEon 01-17-2025 ED NOTE HNO ID: [id number] Author: TAO BEASLEY Medic Service: ? Author Type: Rubber Tubing Backer and Administrative Liaison Type: ED Notes Filed: 01/17/2025 18:54 Note Text: Bed: 30-ED Expected date: 01/17/25 Expected time: Means of arrival: Comments: oli Cross [facility] ED PROV NOTEon 01-17-2025 ED PROV NOTE HNO ID: [id number] Author: JULIETTE GARDINER PA-C Service: ? Author Type: Physician Spool Worker Type: ED Provider Notes Filed: 01/18/2025 00:31 Note Text: ED Provider Note Patient Name: Evin Oviedo : 1985 SERVICE DATE: 01/17/25 History Patient presents with: Seizures: Pt presents with seizures, +hx of same, pt states they are adjusting his meds, last seizure was in November. Pt aANDox4 upon triage HPI Evin Oviedo is a 39 year old male who presents to the ED due to seizure. Patient has known history of epilepsy. He had a neurologist however his neurologist closed their practice, he is currently in the middle of trying to find another 1. He is not able to get scheduled with 1 until May. PCP has been trying to manage his antiepileptic medications. States that they are currently in the middle of adjusting them. He is currently on 1000 mg Keppra twice daily. Had 2 seizures today witnessed by family. Denies any known injuries. He was sitting down when it occurred. He did bite the side of his tongue. No loss of bladder control. Denies recent illness. No drug use. Ambulated to the ambulance at home however was noted to be postictal at that time. He feels well and at baseline on arrival. Nursing/triage notes, assessments, and vitals were reviewed. See MDM/ED course for further HPI. ROS Review of Systems Negative unless otherwise stated in HPI or MDM PAST MEDICAL HISTORY Diagnosis Date Anxiety Morbid obesity (HCC) Seizure (HCC) Uncontrolled hypertension PAST SURGICAL HISTORY Procedure Laterality Date KNEE SURGERY HX TONSILLECTOMY HX FAMILY HISTORY Problem Relation Age of Onset Diabetes Mother Hypertension Mother Hyperlipidemia Mother COPD Father Diabetes Sister Asthma Brother Hyperlipidemia Maternal Grandmother Hypertension Maternal Grandmother Kidney Disease Maternal Grandmother Hypertension Maternal Grandfather Hyperlipidemia Maternal Grandfather Diabetes Paternal Grandmother Social History Tobacco Use Smoking status: Some Days Current packs/day: 0.50 Average packs/day: 0.5 packs/day for 18.4 years (9.2 ttl pk-yrs) Types: Cigarettes Start date: 2006 Smokeless tobacco: Never Vaping Use Vaping status: Never Used Substance and Sexual Activity Alcohol use: Not Currently Drug use: Yes Frequency: 7.0 times per week Types: Marijuana Comment: nerves anxiety Sexual activity: Not on file ALLERGIES Allergen Reactions Seasonale [Levonorg* Cough Physical Exam Physical Exam Vitals [01/17/25 1857] BP Pulse Temp Temp src Resp SpO2 Weight Height 133/87 (!) 104 36.9 ?C (98.5 ?F) Oral 18 98 % 127.5 kg (281 lb) 1.778 m (5' 10) General: alert, generally well-appearing HEENT: atraumatic, EOMI, no scleral injection or tearing, mucous membranes moist Superficial laceration to the left lateral tongue Neck: supple, no stiffness or restricted ROM, trachea midline Lungs: unlabored respirations Cardiac: Slightly tachycardic rate Extremities: atraumatic, without cyanosis or edema Skin: warm, dry, no rashes or lesions Neuro: alert, oriented x 3, no lateralized or focal deficits, moving all 4 extremities, no gross weakness, CN grossly intact Psych: normal mood and affect Diagnostic Testing ED Labs Ordered and Reviewed COMPLETE BLOOD COUNT AND DIFFERENTIAL - Abnormal; Notable for the following components: Result Value Ref Range Abs Neut 7.55 (*) 1.45 - 7.50 k/uL All other components within normal limits COMPREHENSIVE METABOLIC PANEL - Abnormal; Notable for the following components: Glucose 107 (*) 70 - 100 mg/dL Chloride 108 (*) 98 - 107 mmol/L All other components within normal limits URINALYSIS (WITH MICROSCOPIC) WITH CULTURE IF INDICATED - Abnormal; Notable for the following components: Protein, Urine 2+ (*) Negative Casts, Hyaline 4-10 /LPF (*) 0 /LPF All other components within normal limits MAGNESIUM - Normal TOXICOLOGY SCREEN, ROUTINE URINE - Normal Narrative: Urine Drugs of Abuse results are qualitative, providing a preliminary analytical result. A positive result for an assay should be confirmed by another nonimmunological, reference method. A negative result indicates that the assay material is either not present, or present at levels below the cutoff threshold for the analytical method range (AMR) validation. LEVETIRACETAM XR CHEST 2V FRONTAL/LAT Final Result IMPRESSION: No acute cardiopulmonary findings. Sparmaker: PSCB Transcribe Date/Time: Jan 17 2025 8:44P Dictated by : PRISCILA DIAS MD This examination was interpreted and the report reviewed and electronically signed by: PRISCILA DIAS MD on Jan 17 2025 8:44PM EST Procedures Procedures Medications received in ED Medications LORazepam 1 mg tab(s) (ATIVAN) (1 mg ORAL Given 01/17/251928) NaCl 0.9% 1,000 mL iv bolus (0 mL INTRAVENOUS Infusion Complete 01/17/252028 (more content not included)... Normal [facility] Magnesium SerPl-mCncon 01-17 Magnesium [Mass/Vol] 2.0 mg/dL Normal 1.6-2.6 [facility] Comment on above: Order Comment: Speci men Type: BLOOD SPECIMENOrdering Facility: [facility] Address: [address] [place] [address] Performed By: #### 2 4323-8, 88408-1 ####[facility] LABORATORYCLIA [id number] [place] [address] [place] TOXICOLOGY SCREEN, ROUTINE U RINEon 01-17-2025 Amphetamines Confirm (U) [Mass/Vol] Negative Normal Negative [facility] Comment on above: Order Comment: Speci men Type: URINE SPECIMENOrdering Facility: [facility] Address: [address] [place] [id number] Result Comment: Cuto ff threshold at 1000 ng/mL. Performed By: #### U TOX2 ####[facility] LABORATORYCLIA [id number] [place] [address] [place] BARBITURATES, URINE Negative Normal Negative [facility] Comment on above: Order Comment: Speci men Type: URINE SPECIMENOrdering Facility: [facility] Address: [address] [place] [address] Result Comment: Cuto ff threshold at 200 ng/mL. Performed By: #### U TOX2 ####[facility] LABORATORYCLIA [id number] [place] [address] [place] BENZODIAZEPINES, UR Negative Normal Negative [facility] Comment on above: Order Comment: Speci men Type: URINE SPECIMENOrdering Facility: [facility] Address: [address] [place] [address] Result Comment: Cuto ff threshold at 200 ng/mL. Performed By: #### U TOX2 ####[facility] LABORATORYCLIA [id number] [place] [address] [place] Cannabinoids Screen Ql (U) Negative Normal Negative [facility] Comment on above: Order Comment: Speci men Type: URINE SPECIMENOrdering Facility: [facility] Address: [address] [place] [address] Result Comment: Cuto ff threshold at 50 ng/mL. Performed By: #### U TOX2 ####[facility] LABORATORYCLIA [id number] [place] [address] [place] Cocaine Ql (U) Negative Normal Negative [facility] Comment on above: Order Comment: Speci men Type: URINE SPECIMENOrdering Facility: [facility] Address: [address] [place] [address] Result Comment: Cuto ff threshold at 300 ng/mL. Performed By: #### U TOX2 ####[facility] LABORATORYCLIA [id number] [place] [address] [place] Opiates Screen Ql (U) Negative Normal Negative [facility] Comment on above: Order Comment: Speci men Type: URINE SPECIMENOrdering Facility: [facility] Address: [address] [place] [address] Result Comment: Cuto ff threshold at 300 ng/mL. Performed By: #### U TOX2 ####[facility] LABORATORYCLIA [id number] [address] Phencyclidine Ql (U) Negative Normal Negative [facility] Comment on above: Order Comment: Speci men Type: URINE SPECIMENOrdering Facility: [facility] Address: [address] [place] [address] Result Comment: Cuto ff threshold at 25 ng/mL. Performed By: #### U TOX2 ####[facility] LABORATORYCLIA [id number] [address] Urinalysis complete panel (U )on 01-17-2025 Bacteria LM.HPF (Urine sed) [#/Area] None Seen Normal None Seen [facility] Comment on above: Order Comment: Speci men Type: URINE SPECIMENOrdering Facility: [facility] Address: [address] [place] [address] Performed By: #### 2 4356-8 ####[facility] LABORATORYCLIA [id number] [address] OF [facility] Bilirubin Ql (U) Negative Normal Negative [facility] Comment on above: Order Comment: Speci men Type: URINE SPECIMENOrdering Facility: [facility] Address: [address] [place] [address] Performed By: #### 2 4356-8 ####[facility] LABORATORYCLIA [id number] [address] [place] Clarity (Unsp spec) Clear Normal Clear [facility] Comment on above: Order Comment: Speci men Type: URINE SPECIMENOrdering Facility: [facility] Address: [address] [place] [address] Performed By: #### 2 4356-8 ####[facility] LABORATORYCLIA [id number] [address] [place] Color (U) Yellow Normal Yellow [facility] Comment on above: Order Comment: Speci men Type: URINE SPECIMENOrdering Facility: [facility] Address: [address] [place] [address] Performed By: #### 2 4356-8 ####[facility] LABORATORYCLIA [id number] [address] Epithelial cells LM.HPF (Urine sed) [#/Area] None Seen Normal [facility] Comment on above: Order Comment: Speci men Type: URINE SPECIMENOrdering Facility: [facility] Address: [address] [place] [address] Performed By: #### 2 4356-8 ####[facility] LABORATORYCLIA [id number] [address] Glucose Test strip (U) [Mass/Vol] Negative Normal Negative [facility] Comment on above: Order Comment: Speci men Type: URINE SPECIMENOrdering Facility: [facility] Address: [address] [place] [address] Performed By: #### 2 4356-8 ####[facility] LABORATORYCLIA [id number] [address] Hemoglobin Ql (U) Negative Normal Negative [facility] Comment on above: Order Comment: Speci men Type: URINE SPECIMENOrdering Facility: [facility] Address: [address] [place] [address] Performed By: #### 2 4356-8 ####[facility] LABORATORYCLIA [id number] [address] [place] Hyaline casts (Urine sed) [#/Area] 4-10 /LPF Abnormal 0 /LPF [facility] Comment on above: Order Comment: Speci men Type: URINE SPECIMENOrdering Facility: [facility] Address: [address] [place] [address] Performed By: #### 2 4356-8 ####[facility] LABORATORYCLIA [id number] [address] [place] Ketones Ql (U) Negative Normal Negative [facility] Comment on above: Order Comment: Speci men Type: URINE SPECIMENOrdering Facility: [facility] Address: [address] [place] [address] Performed By: #### 2 4356-8 ####[facility] LABORATORYCLIA [id number] [address] Leukocyte esterase Test strip Ql (U) Negative Normal Negative [facility] Comment on above: Order Comment: Speci men Type: URINE SPECIMENOrdering Facility: [facility] Address: [address] [place] [address] Performed By: #### 2 4356-8 ####[facility] LABORATORYCLIA [id number] [address] Nitrite Ql (U) Negative Normal Negative [facility] Comment on above: Order Comment: Speci men Type: URINE SPECIMENOrdering Facility: [facility] Address: [address] [place] [address] Performed By: #### 2 4356-8 ####[facility] LABORATORYCLIA [id number] [address] [place] pH (U) 6.0 [pH] Normal 5.0-8.0 [facility] Comment on above: Order Comment: Speci men Type: URINE SPECIMENOrdering Facility: [facility] Address: [address] [place] [address] Performed By: #### 2 4356-8 ####[facility] LABORATORYCLIA [id number] [address] [place] Protein (U) [Mass/Vol] 2+ Abnormal Negative [facility] Comment on above: Order Comment: Speci men Type: URINE SPECIMENOrdering Facility: [facility] Address: [address] [place] [address] Performed By: #### 2 4356-8 ####[facility] LABORATORYCLIA [id number] [address] [place] RBC LM.HPF (Urine sed) [#/Area] 0-3 /HPF Normal 0-3 /HPF [facility] Comment on above: Order Comment: Speci men Type: URINE SPECIMENOrdering Facility: [facility] Address: [address] [place] [address] Performed By: #### 2 4356-8 ####[facility] LABORATORYCLIA [id number] [place] [address] [facility] Specific gravity (U) [Rel density] 1.021 Normal 1.005-1.030 [facility] Comment on above: Order Comment: Speci men Type: URINE SPECIMENOrdering Facility: [facility] Address: [address] [place] [address] Performed By: #### 2 4356-8 ####[facility] LABORATORYCLIA [id number] [place] 2134[address] [facility] [place] Urobilinogen Ql (U) Negative Normal Negative [facility] Comment on above: Order Comment: Speci men Type: URINE SPECIMENOrdering Facility: [facility] Address: [address] [place] [address] Performed By: #### 2 4356-8 ####[facility] LABORATORYCLIA [id number] [address] [place] WBC LM.HPF (Urine sed) [#/Area] 0-5 /HPF Normal 0-5 /HPF [facility] Comment on above: Order Comment: Speci men Type: URINE SPECIMENOrdering Facility: [facility] Address: [address] [place] [address] Performed By: #### 2 4356-8 ####[facility] LABORATORYCLIA [id number] [place] 2134[address] [place] XR CHEST 2V FRONTAL/LATon XR CHEST 2V FRONTAL/LAT * * *Final Repor t* * * DATE OF EXAM: Jan 17 2025 8:17PM RHX [id number] - XR CHEST 2V FRONTAL/LAT / PROCEDURE REASON: Chest pain, nonspecific * * * * Physician Interpretation * * * * EXAMINATION: XR CHEST 2V FRONTAL/LAT CLINICAL HISTORY: Chest pain. Comparison: None available. RESULT: The cardiomediastinal silhouette is not enlarged. No discernible focal consolidation, pleural effusion, or pneumothorax. IMPRESSION: No acute cardiopulmonary findings. Sparmaker: PSCCriss Transcribe Date/Time: Jan 17 2025 8:44P Dictated by : PRISCILA DIAS MD This examination was interpreted and the report reviewed and electronically signed by: PRISCILA DIAS MD on Jan 17 2025 8:44PM EST [id number] CN Normal [facility] levETIRAcetam SerPl-mCncon 0 01-17-2025 levETIRAcetam [Mass/Vol] 3.3 ug/mL Low 12.0-46.0 [facility] Comment on above: Order Comment: Speci men Type: BLOOD SPECIMENOrdering Facility: [facility] Address: [facility] [place] [address] Result Comment: This test is not suitable for patients receiving treatment with the drug brivaracetam (Briviact). The drug causes an interference that may lead to falsely elevated levetiracetam results. Reference ranges and high/low indicator flags are provided as general guidelines only. The treating physician must determine appropriate target levels/dosing based on the specific clinical situation. This test was developed, and its performance characteristics determined by the [facility] Department of Pathology and Laboratory Medicine. It has not been cleared or approved by the FDA. The [facility] Department of Pathology and Laboratory Medicine is regulated under CLIA as qualified to perform high-complexity testing. This test is used for clinical purposes. It should not be regarded as investigational or for research. Performed By: #### 3 0471-7 ####[facility] LABCLIA [id number] [place] [address] [place] CNCOon 12-17-2024 CNCO Letter Text Normal [facility] XR SHOULDER MINIMUM 2 VIEWS LEFTon 12-14-2024 XR SHOULDER MINIMUM 2 VIEWS LEFT ORIGINAL EXAMINATION: TWO XRAY VIEWS OF THE LEFT SHOULDER 12/12/2024 12:51 pm COMPARISON: None. HISTORY: ORDERING SYSTEM PROVIDED HISTORY: Reason for Exam: PAIN patient had a seizure. Unsure what happened. FINDINGS: No acute fracture or dislocation. The coracoclavicular and acromioclavicular intervals are maintained. No periarticular calcifications. No suspicious osseous lesion. No radiopaque foreign body. The visualized thoracic structures are unremarkable. IMPRESSION: No acute osseous findings. I have personally reviewed the images of this examination and agree with the resident's findings and interpretation. Interpreted by: Americo Darnell DO Preliminary Report By: You Mills Electronically signed By Amreico Darnell DO Dictated Date: 12/14/2024 8:38:47 AM Prelim Date: 12/14/2024 10:34:16 AM Sign Date: 12/14/2024 10:34:16 AM Ordering Provider: WINNIE REFERRING [facility] CNCOon 12-01-2024 CNCO Letter Text [facility] CNOVon 11-30-2024 CNOV Office Visit (FAMAAR) EVIN OVIEDO ([id number]) 1985 M Date Time Provider Department 11/30/24 2:30 PM MICHAEL ALVARADO During your visit today, we recorded the following information about you: Pulse Blood pressure Weight Height 59/minute 128/89 127.6 kg 1.753 m Michael Alvarado MD 11/30/2024 2:58 PM Signed Evin is a 39-year-old male with a history of epilepsy and HTN, presenting for an initial visit and evaluation of seizure management and left shoulder pain. Epilepsy: - Diagnosed in 2021. - Currently taking Keppra 750 mg BID. - Reports breakaway seizures, with the most recent episode occurring yesterday. - Seizures last approximately 5 minutes, followed by 20 minutes of postictal confusion. - Describes feeling low and tired after taking Keppra. - Has not had an MRI; did have an EEG. - Lost neurology care due to insurance changes. HTN: - Managed with metoprolol 50 mg BID and hydrochlorothiazide. - Last blood work in July. Left Shoulder Pain: - Fell in the basement in July, resulting in left shoulder pain. - Pain has persisted since the fall. ALLERGIES Allergen Reactions Seasonale [Levonorg* Cough Current Outpatient Medications Medication Sig levETIRAcetam (KEPPRA) 1,000 mg tablet Take 1 tablet by mouth two times a day. hydroCHLOROthiazide 25 mg tablet Take 1 tablet by mouth once daily. metoprolol tartrate, short acting, (LOPRESSOR) 50 mg tablet Take 1 tablet by mouth two times a day. No current facility-administere d medications for this visit. PAST MEDICAL HISTORY Diagnosis Date Anxiety Morbid obesity (HCC) Seizure (HCC) Uncontrolled hypertension PAST SURGICAL HISTORY Procedure Laterality Date KNEE SURGERY HX TONSILLECTOMY HX FAMILY HISTORY Problem Relation Age of Onset Diabetes Mother Hypertension Mother Hyperlipidemia Mother COPD Father Diabetes Sister Asthma Brother Hyperlipidemia Maternal Grandmother Hypertension Maternal Grandmother Kidney Disease Maternal Grandmother Hypertension Maternal Grandfather Hyperlipidemia Maternal Grandfather Diabetes Paternal Grandmother Social History Tobacco Use Smoking status: Some Days Current packs/day: 0.50 Average packs/day: 0.5 packs/day for 18.3 years (9.1 ttl pk-yrs) Types: Cigarettes Start date: 2006 Smokeless tobacco: Never Vaping Use Vaping status: Never Used Substance Use Topics Alcohol use: Not Currently Drug use: Yes Frequency: 7.0 times per week Types: Marijuana Comment: nerves anxiety All medications have been reviewed and verified. Constitutional: (+) fatigue Gastrointestinal: (-) constipation, (-) diarrhea Genitourinary: (-) dysuria, (-) urinary frequency Musculoskeletal: (+) left shoulder pain Neurological: (+) seizures, (-) weakness Psychiatric: (+) low mood VITALS: Blood pressure 128/89, pulse (!) 59, height 175.3 cm (5' 9), weight 127.6 kg (281 lb 3.2 oz), SpO2 98%., Body mass index is 41.53 kg/m?. GENERAL: NAD, alert and oriented. SKIN: Unremarkable, no rash or skin lesions. HEAD: Normocephalic. EYES: PERRLA, EOMI, conjunctiva clear. EARS: External ears normal, canals clear, TM's normal. NOSE/SINUSES: Nares normal. Septum midline. OROPHARYNX: Lips, mucosa, and tongue normal, good dentition. No oral lesions noted. NECK: Supple, no lymphadenopathy, normal thyroid, no carotid bruits. LUNGS: Clear to auscultation bilaterally, no wheezes/rhonchi/rale s. HEART: Regular rate and rhythm, no murmurs. No ectopy. EXTREMITIES: Normal, no deformities, no skin discoloration, no edema. NEURO: Awake, alert and oriented x3, cranial nerves II-XII grossly intact, normal gait, no involuntary motions. 1. Obesity, Class III, BMI 40-49.9 (morbid obesity) ([facility]) (E66.01) - BMI 41. - Discussed importance of weight management and encouraged initiation of regular exercise. Obesity Body mass index is 41.53 kg/m?. Last Wt 11/30/24 : 127.6 kg (281 lb 3.2 oz) 5% weight loss = 267 lbs, 10% weight loss = 253 lbs The patient is asked to make an attempt to improve diet and exercise patterns to aid in medical management of this problem. Counseling 15 min . 2. Seizure disorder ([facility]) (G40.909) - Experiencing breakthrough seizures lasting approximately 5 minutes with postictal phase of about 20 minutes. - Currently on Keppra 750 mg BID; increased dosage to 1000 mg BID. - Referred to [facility] in [place] for further evaluation and management. - Previous EEG performed; no MRI conducted. - Prescription sent to [facility] pharmacy. 3. Essential hypertension (I10) - Managed with metoprolol 50 mg BID and hydrochlorothiazide. - Refilled prescriptions for metoprolol and hydrochlorothiazide. - Recent blood work in July; ordered fasting blood work to be done one week prior to next appointment. - Follow-up in 4 months. 4. Cigarette smoker (more content not included)... Normal [facility] .Auto Diffon 08-18-2024 Basophil, Absolute 0.0 10 3/mcL Normal 0.0-0.3 [facility] [place] [facility] Comment on above: Performed By: #### A FARZAD, BMP, ADIFF, GFR, MG, W, CBC #### Doreen [address] [place], [place] [address] Basophils/100 WBC (Bld) 0.3 % Normal 0.0-2.5 A ULSCHUYLER HAYNES Comment on above: Performed By: #### A FARZAD, BMP, ADIFF, GFR, MG, MDW, CBC #### Doreen [place] [address] [place], [place] [address] Eosinophil, Absolute 0.1 10 3/mcL Normal 0.0-0.7 AU LTMAN MASSILLON Comment on above: Performed By: #### A FARZAD, BMP, ADIFF, GFR, MG, MDW, CBC #### Doreen [place] [address] [place], [place] [address] Eosinophils/100 WBC (Bld) 0.6 % Normal 0.0-6.0 DOREEN MASSILLON Comment on above: Performed By: #### A FARZAD, BMP, ADIFF, GFR, MG, MDW, CBC #### Doreen [place] [address] [place], [place] [address] Lymphocyte, Absolute 1.5 10 3/mcL Normal 0.9-4.3 AU LTMAN MASSILLON Comment on above: Performed By: #### A FARZAD, BMP, ADIFF, GFR, MG, MDW, CBC #### Doreen [place] [address] [place], [place] [address] Lymphocytes/100 WBC (Bld) 9.7 % Low 20.0-40.0 DOREEN MASSILLON Comment on above: Performed By: #### A FARZAD, BMP, ADIFF, GFR, MG, MDW, CBC #### Doreen [place] [address] [place], [place] [address] Monocyte, Absolute 1.2 10 3/mcL Normal 0.1-1.4 LISS MAN MASSILLON Comment on above: Performed By: #### A FARZAD, BMP, ADIFF, GFR, MG, MDW, CBC #### Doreen [place] [address] [place], [place] [address] Monocytes/100 WBC (Bld) 7.6 % Normal 2.0-13.0 A ULTMAN MASSILLON Comment on above: Performed By: #### A FARZAD, BMP, ADIFF, GFR, MG, MDW, CBC #### Doreen [place] [address] [place], [place] [address] Neutrophils/100 WBC (Bld) 81.8 % High 50.0-75.0 DOREEN MASSILLON Comment on above: Performed By: #### A FARZAD, BMP, ADIFF, GFR, MG, MDW, CBC #### Doreen [place] [address] [place], [place] [address] .GFRon 08-18-2024 GFR Non- 74 ml/min/1.73sqm Normal DOREEN MASSILLON Comment on above: Result Comment: GFR Population mean for , Non- Americans Ages 20-29 = 116 mL/min/1.73 sq.m. Ages 30-39 = 107 mL/min/1.73 sq.m. Ages 40-49 = 99 mL/min/1.73 sq.m. Ages 50-59 = 93 mL/min/1.73 sq.m. Ages 60-69 = 85 mL/min/1.73 sq.m. Ages 70+ = 75 mL/min/1.73 sq.m. Chronic Kidney Disease: Less than 60 mL/min/1.73 square meters End Stage Renal Disease: Less than 15 mL/min/1.73 square meters Performed By: #### A FARZAD, BMP, ADIFF, GFR, MG, MDW, CBC #### Doreen [place] [address] [place], [place] [address] GFR 90 ml/min/1.73sqm Normal DOREEN MASSILLON Comment on above: Result Comment: GFR Population mean for , Non- Americans Ages 20-29 = 116 mL/min/1.73 sq.m. Ages 30-39 = 107 mL/min/1.73 sq.m. Ages 40-49 = 99 mL/min/1.73 sq.m. Ages 50-59 = 93 mL/min/1.73 sq.m. Ages 60-69 = 85 mL/min/1.73 sq.m. Ages 70+ = 75 mL/min/1.73 sq.m. Chronic Kidney Disease: Less than 60 mL/min/1.73 square meters End Stage Renal Disease: Less than 15 mL/min/1.73 square meters Performed By: #### A FARZAD, BMP, ADIFF, GFR, MG, MDW, CBC #### Doreen [place] [address] [place], [place] [address] .MDWon 08-18-2024 Monocyte Distribution Width 15.16 Normal 0.00-20.00 DOREEN MASSILLON Comment on above: Result Comment: For ED adult patients suspected of sepsis, MDW<=20.0 does not rule out sepsis or risk of sepsis Performed By: #### A FARZAD, BMP, ADIFF, GFR, MG, MDW, CBC #### Doreen [place] [address] [place], [place] [address] .NEUABSon 08-18-2024 Neutrophil, Absolute 12.5 10 3/mcL High 2.3-8.1 A ULTMAN MASSILLON Comment on above: Performed By: #### A FARZAD, BMP, ADIFF, GFR, MG, MDW, CBC #### Doreen [place] [address] [place], [place] [address] BMPon 08-18-2024 BUN/Creatinine Ratio 11 ratio Normal 7-27 LISS MAN MASSILLO Comment on above: Performed By: #### A FARZAD, BMP, ADIFF, GFR, MG, MDW, CBC #### Doreen [place] [address] [place], [place] [address] Calcium [Mass/Vol] 9.2 mg/dL Normal 8.4-10.2 AULTMA N MASSILLON Comment on above: Performed By: #### A FARZAD, BMP, ADIFF, GFR, MG, MDW, CBC #### Doreen [place] [address] [place], [place] [address] Chloride [Moles/Vol] 103 mmol/L Normal 98-107 LISS MAN [place]LL[place] Comment on above: Performed By: #### A FARZAD, BMP, ADIFF, GFR, MG, MDW, CBC #### Doreen [place] [address] [place], [place] [address] CO2 [Moles/Vol] 29 mmol/L Normal 22-29 DOREEN MASSILLON Comment on above: Performed By: #### A FARZAD, BMP, ADIFF, GFR, MG, MDW, CBC #### Doreen [place] [address] [place], [place] [address] Creatinine [Mass/Vol] 1.11 mg/dL Normal 0.70-1.30 AUL TMAN MASSILLON Comment on above: Result Comment: Test ing performed on Siemens Dimension EXL analyzer using a modified kinetic Isis technique. Performed By: #### A FARZAD, BMP, ADIFF, GFR, MG, MDW, CBC #### Doreen [place] [address] [place], [place] [address] Electrolyte Balance 10.0 mEq/L Normal 4.0-15.0 AULTM AN MASSILLON Comment on above: Performed By: #### A FARZAD, BMP, ADIFF, GFR, MG, MDW, CBC #### Doreen [place] [address] [place], [place] [address] Glucose [Mass/Vol] 121 mg/dL High 70-105 AULTMA N MASSILLON Comment on above: Performed By: #### A FARZAD, BMP, ADIFF, GFR, MG, MDW, CBC #### Doreen [place] [address] [place], [place] [address] Potassium [Moles/Vol] 4.0 mmol/L Normal 3.5-5.1 AUL TMAN MASSILLON Comment on above: Performed By: #### A FARZAD, BMP, ADIFF, GFR, MG, MDW, CBC #### Doreen [place] [address] [place], [place] [address] Sodium [Moles/Vol] 142 mmol/L Normal 136-145 AULTMA N MASSILLON Comment on above: Performed By: #### A FARZAD, BMP, ADIFF, GFR, MG, MDW, CBC #### Doreen [place] [address] [place], [place] [address] Urea nitrogen [Mass/Vol] 12 mg/dL Normal 7-18 DOREEN MASSILLON Comment on above: Performed By: #### A FARZAD, BMP, ADIFF, GFR, MG, MDW, CBC #### Doreen [place] [address] [place], [place] [address] CBCon 08-18-2024 Erythrocyte distribution width (RBC) [Ratio] 14.4 % Normal 11.5-15.5 DOREEN MASSILLO Comment on above: Performed By: #### A FARZAD, BMP, ADIFF, GFR, MG, MDW, CBC #### Doreen [place] [address] [place], [place] [address] Hematocrit (Bld) [Volume fraction] 44.3 % Normal 40.0-52.0 [facility] Comment on above: Performed By: #### A FARZAD, BMP, ADIFF, GFR, MG, MDW, CBC #### [place] [address] [place], [place] [address] Hgb 14.6 G/dL Normal 13.0-17.5 [facility] Comment on above: Performed By: #### A FARZAD, BMP, ADIFF, GFR, MG, MDW, CBC #### [facility] [address] [place], [place] [address] MCH (RBC) [Entitic mass] 28.2 pg Normal 27.0-33.0 [facility] Comment on above: Performed By: #### A FARZAD, BMP, ADIFF, GFR, MG, MDW, CBC #### [facility] [address] [place], [place] [address] MCHC 32.8 G/dL Normal 32.0-36.0 [facility] Comment on above: Performed By: #### A FARZAD, BMP, ADIFF, GFR, MG, MDW, CBC #### [facility] [address] [place], [place] [address] MCV (RBC) [Entitic vol] 86.0 fL Normal 81.0-100.0 [facility] Comment on above: Performed By: #### A FARZAD, BMP, ADIFF, GFR, MG, MDW, CBC #### [facility] [address] [place] [id number] Platelet 287 10 3/mcL Normal 150-450 [facility] Comment on above: Performed By: #### A FARZAD, BMP, ADIFF, GFR, MG, MDW, CBC #### [facility] [address] [place], [place] [address] Platelet mean volume (Bld) [Entitic vol] 8.6 fL Normal 6.4-10.5 [facility] Comment on above: Performed By: #### A FARZAD, BMP, ADIFF, GFR, MG, MDW, CBC #### [facility] [address] [place], [place] [address] RBC 5.16 10 6/mcL Normal 4.50-6.00 [facility] Comment on above: Performed By: #### A FARZAD, BMP, ADIFF, GFR, MG, MDW, CBC #### [facility] [address] [place], [place] [address] WBC 15.3 10 3/mcL High 4.5-10.8 [facility] Comment on above: Performed By: #### A FARZAD, BMP, ADIFF, GFR, MG, MDW, CBC #### [facility] [address] [place], [place] [address] CT HEAD OR BRAIN W/O CONTRAS Ton 08-18-2024 CT HEAD OR BRAIN W/O CONTRAST ORIGINAL EXAMINATION: CT OF THE HEAD WITHOUT CONTRAST 08/18/2024 1:48 am TECHNIQUE: CT of the head was performed without the administration of intravenous contrast. Automated exposure control, iterative reconstruction, and/or weight based adjustment of the mA/kV was utilized to reduce the radiation dose to as low as reasonably achievable. COMPARISON: None. HISTORY: ORDERING SYSTEM PROVIDED HISTORY: Reason for Exam: SEIZURE TODAY HITTING HEAD, HX OF SEIZURES - ON KEPPRA pain FINDINGS: BRAIN/VENTRICLES: There is no acute intracranial hemorrhage, mass effect or midline shift. No abnormal extra-axial fluid collection. The katz-white differentiation is maintained without evidence of an acute infarct. There is no evidence of hydrocephalus. ORBITS: The visualized portion of the orbits demonstrate no acute abnormality. SINUSES: The visualized paranasal sinuses and mastoid air cells demonstrate no acute abnormality. SOFT TISSUES/SKULL: No acute abnormality of the visualized skull or soft tissues. IMPRESSION: No acute intracranial abnormality. Interpreted by: Narayan Del Angel MD Preliminary Report By: Narayan Del Angel MD Electronically signed By Narayan Del Angel MD Dictated Date: 08/18/2024 1:56:12 AM Prelim Date: 08/18/2024 1:57:08 AM Sign Date: 08/18/2024 1:57:08 AM Ordering Provider: BETZAIDA MAN Normal [facility] MGon 08-18-2024 Magnesium [Mass/Vol] 1.7 mg/dL Low 1.8-2.4 [facility] Comment on above: Performed By: #### A FARZAD, BMP, URVASHI, GFR, MG, MDW, CBC #### [facility] [address] [place], [place] [address] [facility] 04-13-2024 CNPN Telephone (CARMOB) EVIN OVIEDO ([id number]) 1985 M Date Time Provider Department 04/13/24 PAT PEGUERO During your visit today, we recorded the following information about you: Clarisse Freeman 04/13/2024 4:04 PM Signed Received a referral from [facility]. Patient is referred for uncontrolled hypertension and hypertensive urgency. Scanned referral into chart for review. Please call patient to schedule at [phone]. Joana Sanders 04/14/2024 9:39 AM Signed Scheduled and confirmed with patient Joana Sanders Allergies As of Date: 04/13/2024 Noted Allergy Reaction SEASONALE (LEVONORGESTREL-ETHI NYL*02/13/2022 3 - Cough Date Reviewed: 08/21/2023 Reviewed by: Tao De La Torre, RN - Fully Assessed Reason for Visit: Appointment [186] Prescriptions as of 04/14/2024 - levETIRAcetam (KEPPRA) 1,000 mg tablet Take 1 tablet by mouth twice daily. Problem List As Of Date 04/13/2024 Noted Resolved Obesity, Class II, BMI 35-39.9 [E66.9] 02/13/2022 Seizure disorder (HCC) [G40.909] 02/13/2022 Primary hypertension [I10] 02/13/2022 Smoking [F17.200] 02/13/2022 Encounter Status:Closed by JOANA SANDERS on 04/14/24 Normal [facility] ECHOon 04-02-2024 Echocardiography Echocardiography Report: Transthoracic Echo [facility] Date of service: 04/02/2024 9:29:34 AM Indication: Hypertensive heart disease Technologist: Joana Cee [facility] Interpreting physician: Benjamin Jennings MD PATIENT: Name: EVIN OVIEDO : 1985 Age: 38 years Gender: M History of hypertension. Primary rhythm: sinus. Height: 177.80 cm BSA: 2.55 m Weight: 131.54 kg BMI: 41.6 kg/m Heart rate 55 bpm Blood pressure 137/97 mmHg Color Doppler was utilized to interrogate the cardiac valves assessed and spectral Doppler was utilized to determine the flow velocities and pressure gradients reported in this exam. Myocardial strain analysis was performed in this exam to aid in the assessment of cardiac function. MEASUREMENTS: Value Indexed Normal Max aortic dimension 3.5 cm Ao < 3.8 Left atrial volume 61 ml (biplane A-L) 24 ml/m Humberto <= 34 LV ID (diastole) 4.6 cm (2D) 1.80 cm/m LV ID (systole) 2.6 cm (2D) 1.02 cm/m IVS, leaflet tips 1.2 cm (2D) Posterior wall thickness 1.2 cm (2D) Left ventricular mass 205 g (2D) 80 g/m Global peak long strain -16.9 % LV stroke volume 73 ml (2D biplane) LVOT stroke volume 98 ml 40 ml/m LV end diastolic volume 117 ml (2D biplane) 45.8 ml/m 34<=EDVi<75 LV end systolic volume 44 ml (2D biplane) 17.3 ml/m Ejection Fraction 62 % (2D biplane) EF > 52 FINDINGS: LEFT VENTRICLE The left ventricle is normal in size. There is mild concentric left ventricular hypertrophy. Left ventricular systolic function is normal. Global LV myocardial strain is normal. Normal left ventricular diastolic function. Mitral annular lateral E/e': 8.4. Mitral annular septal E/e': 15.2. Wall Motion: All scored segments are normal. RIGHT VENTRICLE The right ventricle is normal in size. Right ventricular systolic function is normal. RV systolic tissue Doppler velocity is 13.1 cm/s. Tricuspid annular displacement is 2.7 cm. Estimated right ventricular systolic pressure is likely underestimated due to a weak or incomplete tricuspid regurgitation signal and is, at least, 20 mmHg consistent with normal pulmonary artery pressures. Estimated right atrial pressure is 8 mmHg based on IVC assessment. LEFT ATRIUM The left atrial cavity is normal in size. RIGHT ATRIUM The right atrial cavity is normal in size. Inferior Vena Cava: The inferior vena cava appears dilated measuring 2.1 cm. The vessel decreases greater than 50 percent with inspiration. MITRAL VALVE There is no mitral stenosis. There is trace mitral valve regurgitation. The peak mitral valve gradient is 3 mmHg. The mean mitral valve gradient is 1 mmHg. The pressure half time is 64 msec. The peak mitral E/A ratio is 1.37. The average mitral E/e' ratio is 11.8. The mitral flow deceleration time is 222 msec. TRICUSPID VALVE There is no tricuspid stenosis. There is trace tricuspid valve regurgitation. AORTIC VALVE There is no aortic valve stenosis. There is no aortic valve regurgitation. Tricuspid aortic valve. The peak gradient is 5 mmHg (peak velocity = 114.0 cm/s). The mean gradient is 3 mmHg. The LVOT mean velocity is 71.5 cm/s. The LVOT diameter is 2.2 cm. The aortic VTI is 26.2 cm. The mean velocity in the aortic valve is 75.6 cm/s. The dimensionless valve index is 0.98. AV area is 3.72 cm (1.46 cm /m ) by continuity, VTI. The LVOT stroke volume index is 40 ml/m . PULMONIC VALVE There is no pulmonic stenosis. There is trace pulmonic valve regurgitation. The peak gradient is 5 mmHg. AORTA The visualized aorta is normal in size. Measurements - Sinus: 3.5 cm. Sinotubular junction 3.3 cm. Mid ascending aorta 3.2 cm. INTERVENTRICULAR SEPTUM There is no flow through the interventricular septum as detected by Doppler. PERICARDIUM The pericardium is normal. There is no pericardial effusion. CONCLUSIONS: - Exam indication: Hypertensive heart disease - The left ventricle is normal in size. There is mild concentric left ventricular hypertrophy. Left ventricular systolic function is normal. EF = 62 5% (2D biplane) Normal left ventricular diastolic function. - The right ventricle is normal in size. Right ventricular systolic function is normal. - The patient has not had a prior CC echocardiographic exam for comparison. * * * Final * * * CC [employer] [facility] : [id number] Normal [facility] EKGon 04-02-2024 Atrial Rate 54 BPM [facility] Calculated P [place] 62 degrees [facility] Calculated R [place] 46 degrees [facility] Calculated T [place] 53 degrees [facility] P-R Interval 190 ms [facility] QRS Duration 94 ms [facility] QT Interval 396 ms [facility] QTC Calculation (Bazett) 375 ms [facility] Ventricular Rate 54 BPM [facility] Sinus bradycardia Otherwise normal ECG When compared with ECG of 21-Aug-2023 20:21, Questionable change in QRS axis Nonspecific T wave abnormality no longer evident in Inferior leads Confirmed by TOBY KAN MD ([id number]) on 04/02/2024 1:11:44 PM [facility] NAME : EVIN OVIEDO PID : [id number] : 1985 Gender : Male Race : ORD : Procedure Date : Apr 02 2024 09:25:40 Edit Date : Apr 02 2024 13:11:47 Diagnosis: Sinus bradycardia Otherwise normal ECG When compared with ECG of 21-Aug-2023 20:21, Questionable change in QRS axis Nonspecific T wave abnormality no longer evident in Inferior leads Confirmed by TOBY KAN MD ([id number]) on 04/02/2024 1:11:44 PM Test Reason : RT Location : 18 : L OP Overread By : TOBY KAN MD Edited By : TOBY KAN MD Referred By : LEIDA VO Acquired by : MAGGY ALVARADO [facility] Electrocardiogram Ventricular Rate : 54 BPM Atrial Rate : 54 BPM P-R Interval : 190 ms QRS Duration : 94 ms Q-T Interval : 396 ms QTC Calculation(Bazett) : 375 ms Calculated P [place]ow : 62 degrees Calculated R Bartow : 46 degrees Calculated T [place]ow : 53 degrees Sinus bradycardia Otherwise normal ECG When compared with ECG of 21-Aug-2023 20:21, Questionable change in QRS axis Nonspecific T wave abnormality no longer evident in Inferior leads Confirmed by TOBY KAN MD ([id number]) on 04/02/2024 1:11:44 PM NAME : EVIN OVIEDO PID : [id number] : 1985 Gender : Male Race : ORD : Procedure Date : Apr 02 2024 09:25:40 Edit Date : Apr 02 2024 13:11:47 Diagnosis: Sinus bradycardia Otherwise normal ECG When compared with ECG of 21-Aug-2023 20:21, Questionable change in QRS axis Nonspecific T wave abnormality no longer evident in Inferior leads Confirmed by TOBY KAN MD ([id number]) on 04/02/2024 1:11:44 PM Test Reason : RT Location : 18 : CDL OP Overread By : TOBY KAN MD Edited By : TOBY KAN MD Referred By : LEIDA VO Acquired by : MAGGY ALVARADO [facility] CBC (POC)on 02-04-2022 Perf Loc - POCT Tested at AM Normal [facility]) Comment on above: Result Comment: [facility] [address] [place], [place] [address] Basophil, Absolute (POC) 0.05 10 3/mcL Normal 0.00-0.2 7 [facility]) Basophils/100 WBC (Bld) 0.4 % Normal 0.0-2.5 A [facility] ([place]) Eosinophil, Absolute (POC) 0.13 10 3/mcL Normal 0.00-0.65 [facility] ([place]) Eosinophils/100 WBC (Bld) 1.1 % Normal 0.0-6.0 [facility] ([place]) Erythrocyte distribution width (RBC) [Ratio] 13.1 % Normal 11.5-15.5 [facility] ([place]) Hematocrit (Bld) [Volume fraction] 41.7 % Normal 40.0-52.0 [facility]) Hemoglobin (POC) 14.1 G/dL Normal 13.0-17.5 [facility] ([place]) Imm Granulocyte, Absolute (POC) 0.05 10 3/mcL Normal [facility] ([place]) Immature granulocytes/100 WBC (Bld) 0.4 % Normal [facility] ([place] Lymphocyte, Absolute (POC) 3.15 10 3/mcL Normal 0.90-4.32 [facility]) Lymphocytes/100 WBC (Bld) 25.8 % Normal 20.0-40.0 [facility]) MCH (RBC) [Entitic mass] 28.3 pg Normal 27.0-33.0 [facility]) MCHC (POC) 33.8 G/dL Normal 32.0-36.0 [facility]) MCV (RBC) [Entitic vol] 83.7 fL Normal 81.0-100.0 A [facility]) Monocyte, Absolute (POC) 1.15 10 3/mcL Normal 0.09-1.4 0 [facility]) Monocytes/100 WBC (Bld) 9.4 % Normal 2.0-13.0 A [facility]) Neutrophil, Absolute (POC) 7.69 10 3/mcL Normal 2.25-8.10 [facility]) Neutrophils/100 WBC (Bld) 62.9 % Normal 50.0-75.0 [facility]) Performing Instrument - POCT SYSMEX Normal [facility]) Platelet (POC) 358 10 3/mcL Normal 150-450 [facility]) Platelet mean volume (Bld) [Entitic vol] 10.6 fL High 6.4-10.5 [facility] ([place]) RBC (POC) 4.98 10 6/mcL Normal 4.50-6.00 Pending sale to [facility] ([place]) WBC (POC) 12.22 10 3/mcL High 4.50-10.80 [facility] ([place]) CT HEAD OR BRAIN W/O CONTRAS Ton 02-04-2022 CT HEAD OR BRAIN W/O CONTRAST ORIGINAL EXAMINATION: CT OF THE HEAD WITHOUT CONTRAST 02/04/2022 5:51 am TECHNIQUE: CT of the head was performed without the administration of intravenous contrast. Automated exposure control, iterative reconstruction, and/or weight based adjustment of the mA/kV was utilized to reduce the radiation dose to as low as reasonably achievable. COMPARISON: None. HISTORY: ORDERING SYSTEM PROVIDED HISTORY: Reason for Exam: pt states seizure tonight, states no diagnosis of seizure disorder but had one other seizure 2 weeks ago, denies injury denies headache states brain feels fuzzy, denies htn/cancer/sx, current smoker, denies thinners pain FINDINGS: BRAIN/VENTRICLES: There is no acute intracranial hemorrhage, mass effect or midline shift. No abnormal extra-axial fluid collection. The katz-white differentiation is maintained without evidence of an acute infarct. There is no evidence of hydrocephalus. ORBITS: The visualized portion of the orbits demonstrate no acute abnormality. SINUSES: The visualized paranasal sinuses and mastoid air cells demonstrate no acute abnormality. SOFT TISSUES/SKULL: No acute abnormality of the visualized skull or soft tissues. IMPRESSION: No acute intracranial abnormality. RECOMMENDATIONS: Consider nonemergent MRI for workup of new onset seizure disorder. Interpreted by: Shaheed Correia MD Preliminary Report By: Shaheed Correia MD Electronically signed By Shaheed Correia MD Dictated Date: 02/04/2022 6:05:12 AM Prelim Date: 02/04/2022 6:06:46 AM Sign Date: 02/04/2022 6:06:46 AM Ordering Provider: ANA COFFMAN Normal [facility]) RENAL12 (POC)on 02-04-2022 Perf Loc - POCT Tested at AM Normal [facility]) Comment on above: Result Comment: [facility] [address] [place], [place] [address] Albumin Level (POC) 3.6 G/dL Normal 3.2-4.8 [facility] ([place]) Calcium [Mass/Vol] 9.5 mg/dL Normal 8.4-10.1 [facility] ([place]) Chloride [Moles/Vol] 104 mmol/L Normal 98-110 [facility]) CO2 [Moles/Vol] 22 mmol/L Normal 22-32 [facility] ([place]) Creatinine [Mass/Vol] 0.90 mg/dL Normal 0.60-1.40 [facility] ([place]) Est GFR (POC) >60 Normal [facility] ([place]) Comment on above: Result Comment: Chronic Kidney Disease: Less than 60 mL/min/1.73 square meters End Stage Renal Disease: Less than 15 mL/min/1.73 square meters Est GFR Non- (POC) >60 Normal [facility] ([place]) Comment on above: Result Comment: Chronic Kidney Disease: Less than 60 mL/min/1.73 square meters End Stage Renal Disease: Less than 15 mL/min/1.73 square meters Glucose [Mass/Vol] 144 mg/dL High 70-110 [facility] ([place]) Lactate [Moles/Vol] 7.6 mmol/L High 0.2-2.0 [facility] ([place]) Magnesium [Mass/Vol] 1.8 mg/dL Normal 1.6-2.4 [facility]) Performing Instrument - POCT CONY Normal [facility]) Phosphorus Level (POC) 2.6 mg/dL Normal 2.5-4.5 [facility] ([place]) Potassium [Moles/Vol] 4.7 mmol/L Normal 3.5-5.0 [facility] ([place]) Sodium [Moles/Vol] 140 mmol/L Normal 136-145 [facility] ([place]) Urea nitrogen [Mass/Vol] 8.0 mg/dL Normal 8.0-22.0 [facility]) TROP (POC)on 02-04-2022 Perf Loc - POCT Tested at AM Normal [facility] ([place]) Comment on above: Result Comment: [facility] [address] [place], [place] [address] Performing Instrument - POCT TRIAGE1 Normal [facility] ([place]) Troponin I.cardiac [Mass/Vol] ng/mL Normal <=0.05 [facility] ([place]) Comment on above: Result Comment: Trop onin I reference ranges: <0.05 ng/mL Negative and non-diagnostic. >=0.05 ng/mL Consistent with cardiac damage, increased clinical risk and possibility of myocardial infarction. Serial measurements, a rise & fall in test results, clinical history, appropriate symptoms and/or ECG changes may help assess possibility of SD. *Other non-acute coronary syndrome conditions such as CHF, myocarditis, pulmonary emboli, sepsis and cardiac surgery could result in myocardial damage and increased troponin levels. Mandie 09-10-2021 EMERGENCY PHYSICIAN REPORT This is a preliminary report only, as the practitioner review and authentication has not occurred. [facility] ER PHYSICIAN ASSESSMENT RECORDS : FlexChartData Event Time: 09/10/2021 05:20 CMCA Status: Signed [facility] Evin Oviedo [[id number]] Mid-Level Chart (V2b) 36 / M / 1985 Chart created at 09/10/2021 05:16 by Jyotsna Dickson Chart closed at 09/10/2021 05:39 Entry in Emergency Department at 09/10/2021 01:24, departure at 09/10/2021 06:32 Patient Name: Evin Oviedo Record Number: [id number] Date: 09/10/2021 05:16 Entered Department at: 09/10/2021 01:24 Patient Seen at: 09/10/2021 05:08 Historian: Patient PCP: *None,. Chief Complaint:Pt states he believes that he has a broken tooth that is also causing some ear pain on the left side. no swelling noticed, pt states his jaw feels swollen on the inside. Nursing triage/initial assessment reviewed and confirmed and Initial Vital Signs reviewed. Temperature: 98 F (36.7 C). Pulse: 63. Respiratory Rate: 16. Blood-pressure: 173/92. Oxygen Saturation: 100%. History of Present Illness: 36-Year-old male presents for evaluation of a toothache which began a few days ago. He states that his left mandibular molar broke a few months ago. It has not really caused him any discomfort up until the past few days. He is concerned that it might be infected. [facility] PATIENT NAME: SHELDON OVIEDONGELO P [address] [place] MEDICAL REC #: [id number] [place] [id number] EMERGENCY DEPARTMENT REPORT EMERGENCY DEPARTMENT PHYSICIAN He feels as though he might have some overlying swelling. He denies any drainage from the tooth. He denies any fever or chills. He denies any difficulty breathing or swallowing. He denies any nausea or vomiting. Review of Systems. Ear/Nose/Throat: Dental pain All other systems reviewed and negative.. Past History, Medications, Allergies, Social History and Family History reviewed in nurses note. Medications: Reviewed RN Note. None Allergies: Reviewed RN Note No Known Allergies Social History: Reviewed RN Note. Family History: Reviewed RN Note Physical Examination: General: Alert and Well Developed; Well-appearing. No distress. Sitting upright in bed. Appears comfortable and nontoxic. HEENT: Normocephalic/atraum atic. Bilateral conjunctiva without injection or drainage. Mucous membranes are moist. Overall dentition is fair. The patient does have a broken left second mandibular molar. It is tender to percussion. There is no surrounding gingival edema, induration, fluctuance, or drainage. There is no obvious overlying facial edema. No trismus. No sublingual fullness or tenderness. No submandibular erythema, edema, warmth, or tenderness. Airways patent. No drooling, stridor, or muffled voice.. Neck: Supple Respiratory: No Resp Distress Cardio-Vascular: RRR Neurological: Alert, Oriented X3 and No Gross Weakness Skin: Warm and Dry Psychological: Mood/Affect Normal and Normal Memory/Judgment Medical Decision Making As above, 36-year-old male presents for evaluation of several days of left mandibular molar pain. He denies any other complaints or concerns. Vitals were all [facility] PATIENT NAME: EVIN OVIEDO [address] [place] MEDICAL REC #: [id number] [place] [address] EMERGENCY DEPARTMENT REPORT EMERGENCY DEPARTMENT PHYSICIAN within normal limits. Patient was afebrile nontoxic in appearance. His left second mandibular molar was broken and tender to percussion. There is no surrounding gingival edema, induration, fluctuance, drainage. No obvious drainable abscess. No significant facial edema. No trismus. Airway is patent. No drooling, stridor, muffled voice. No evidence of Ludewigs angina. Given the patients tenderness to percussion and broken tooth, I am concerned for developing dental infection and will start him on penicillin VK. He was given his first dose here. I also gave him a shot of Toradol for his discomfort. He will be discharged in good condition with instructions to take Tylenol or ibuprofen for pain. He will be prescribed penicillin VK. He was provided dental referral for follow-up and was given very thorough return precautions. He verbalized understanding of all the above and was agreeable. Additional Information: Discussed Results, Diagnosis and Follow-Up with Patient. Clinical Impression: 1. Left mandibular molar pain Disposition: Discharged *Home. Condition: Good Direct patient care supervision and electronic documentation review by Ziyad Abad on 09/10/2021 06:57. : FlexChartData Event Time: 09/10/2021 06:16 Status: Signed [facility] (more content not included)... Normal [facility] Vital Signs Date Time Vital Sign Value Performing Clinician Facility 02-25-2025 11:02-0400 Body height 179.[address] Benito Palmer MD Work Phone: [facility] 02-25-2025 11:02-0400 Body mass index (BMI) [Ratio] 40.4 kg/m2 Dr. Benito Palmer MD Work Phone: [facility] 02-25-2025 11:02-0400 Body temperature 98 [degF] Dr. Benito Palmer MD Work Phone: [facility] 02-25-2025 11:02-0400 Body weight 129.[address] Benito Palmer MD Work Phone: [facility] 02-25-2025 11:02-0400 Diastolic blood pressure 90 mm[Hg] Dr. Benito Palmer MD Work Phone: [facility] 02-25-2025 11:02-0400 Heart rate 65 /min Dr. Benito Palmer MD Work Phone: [facility] 02-25-2025 11:02-0400 Respiratory rate 16 /min Dr. Benito Palmer MD Work Phone: [facility] 02-25-2025 11:02-0400 SaO2% (BldA) [Mass fraction] 99 % Dr. Benito aPlmer MD Work Phone: [facility] 02-25-2025 11:02-0400 Systolic blood pressure 143 mm[Hg] Dr. Benito Palmer MD Work Phone: [facility] 11-30-2024 14:31-0400 Body height 175.3 cm Michael Alvarado MD Work Phone: [facility] 11-30-2024 14:31-0400 Body mass index (BMI) [Ratio] 41.53 kg/m2 Michael Alvarado MD Work Phone: [facility] 11-30-2024 14:31-0400 Body weight 127.55 kg Michael Alvarado MD Work Phone: [facility] 11-30-2024 14:31-0400 Diastolic blood pressure 89 mm[Hg] Michael Alvarado MD Work Phone: [facility] 11-30-2024 14:31-0400 Heart rate 59 /min Michael Alvarado MD Work Phone: [facility] 11-30-2024 14:31-0400 SaO2% (BldA) [Mass fraction] 98 % Michael Alvarado MD Work Phone: [facility] 11-30-2024 14:31-0400 Systolic blood pressure 128 mm[Hg] Michael Alvarado MD Work Phone: [facility] 02-13-2022 08:36-0400 Body height 175.3 cm Michael Alvarado MD Work Phone: [facility] 02-13-2022 08:36-0400 Body temperature 97.39 [degF] Michael Alvarado MD Work Phone: [facility] 02-13-2022 08:36-0400 Body weight 121.2 kg Michael Alvarado MD Work Phone: [facility] 02-13-2022 08:36-0400 Diastolic blood pressure 86 mm[Hg] Michael Alvarado MD Work Phone: [facility] 02-13-2022 08:36-0400 Heart rate 69 /min Michael Alvarado MD Work Phone: [facility] 02-13-2022 08:36-0400 SaO2% (BldA) [Mass fraction] 97 % Michael Alvarado MD Work Phone: [facility] 02-13-2022 08:36-0400 Systolic blood pressure 128 mm[Hg] Michael Alvarado MD Work Phone: [facility] Encounters Encounter Date Encounter Type Care Provider Facility Start: 04-05-2025 ambulatory Benito Palmer [facility] y:[facility] Start: 03-22-2025 End: 03-22-[address] Benito Palmer MD Work Phone: -Pulmonary Services/Neurology Start: 03-22-2025 End: 03-22-[address] Benito Palmer MD -Pulmonary Services/Neurology Work Phone: Start: 03-22-2025 End: 03-22-2025 ambulatory RAJANI PINK Facility:[facility] Start: 02-25-2025 End: 02-25-[address] Benito Palmer MD [facility] Work Phone: Start: 02-25-2025 End: 02-25-2025 ambulatory Benito Palmer [facility] Start: 02-03-2025 End: 02-03-2025 ambulatory Michael Alvarado MD Work Phone: [facility] Start: 02-03-2025 End: 02-03-2025 Patient encounter procedure Michael Alvarado MD Work Phone: [facility] Comment on above: Neurologist Care Start: 01-27-2025 End: 01-27-2025 Transcribe Orders Juliette Gardiner PA-C Work Phone: [facility] [place] [facility]erral [facility] Start: 01-19-2025 End: 01-19-2025 [facility] Start: 01-19-2025 End: 01-19-2025 Follow-up encounter Cristiana Baldwin RN [facility] are Comment on above: Primary Care Coordin ator Ed Follow Up Start: 01-17-2025 End: 01-17-2025 Emergency department patient visit MICHAEL ALVARADO Facility:[id number] Start: 12-12-2024 End: 12-12-2024 ambulatory PHY WO ID REFERRING Facility:A Start: 12-10-2024 End: 12-10-2024 Patient encounter procedure Michael Alvarado MD Work Phone: [facility] Comment on above: Neuro Care Referral Start: 12-10-2024 End: 12-10-2024 ambulatory Michael Alvarado MD Work Phone: [facility] Start: 11-30-2024 End: 11-30-2024 Patient encounter procedure Michael Alvarado MD Work Phone: [facility] Comment on above: Obesity, Class III, BMI >= 40 (Primary Dx); Seizure disorder (HCC); Essential hypertension; Cigarette smoker; Tendinitis of left rotator cuff Start: 11-30-2024 End: 11-30-2024 ambulatory MICHAEL ALVARADO Facility:[id number] Start: 09-04-2024 End: 09-04-2024 ambulatory RAMA BARBAT Not Available Start: 09-04-2024 End: 09-04-2024 Telephone encounter Rama Barbat [employer] Work Phone: [facility] Start: 09-04-2024 End: 09-04-2024 Office outpatient visit 15 minutes Rama S Sahilandt [employer] Work Phone: [facility] Comment on above: Partial symptomatic epilepsy with complex partial seizures, not intractable, without status epilepticus (CMS/HCC) (Primary Dx) Start: 08-18-2024 End: 08-18-2024 Emergency department patient visit DR LEIDA VO MD Facility:A Start: 07-11-2024 End: 07-11-2024 ambulatory ZEKE GONSALES Not Available Start: 05-28-2024 End: 05-28-2024 Bamboo flowsheet Rama S Sahilandt [employer] Work Phone: [facility] Start: 05-28-2024 End: 05-28-2024 Bamboo flowsheet Rama S Sahilandt [employer] Work Phone: [facility] Start: 05-28-2024 End: 05-28-2024 Office outpatient visit 25 minutes Rama S Sahilandt [employer] Work Phone: [facility] Comment on above: Partial symptomatic epilepsy with complex partial seizures, not intractable, without status epilepticus (CMS/HCC) Start: 05-28-2024 End: 05-28-2024 ambulatory RAMA BARBAT Not Available Start: 04-13-2024 End: 04-14-2024 Telephone encounter Pat Peguero MD Work Phone: [facility] Comment on above: Appointment Start: 04-02-2024 ambulatory LEIDA Elkins y:[id number] Start: 04-02-2024 End: 04-02-2024 Subsequent hospital visit by physician Echo Lab 1 [facility] Work Phone: [facility] Comment on above: UNCONTROLLED HYPERTE NSION Start: 11-11-2023 End: 11-11-2023 ambulatory ZEKE GONSALES Not Available Start: 02-13-2022 End: 02-13-2022 Patient encounter procedure Michael Alvarado MD Work Phone: [facility] Comment on above: Seizure disorder (HC C) (Primary Dx); Primary hypertension; Smoking; Obesity, Class II, BMI 35-39.9 Start: 02-08-2022 Chart abstracting Michael Saldana MD Work Phone: [facility] Start: 09-10-2021 End: 09-10-2021 Subsequent hospital visit by physician RAYO FINN Comment on above: TOOTHACHE,LEFT SIDED FACIAL PAIN Procedures Date Procedure Procedure Detail Performing Clinician Start: 04-02-2024 Ecg routine ecg w/le ast 12 lds trcg only w/o i&r [facility] Provider Start: 11-06-2023 Lipid 1996 panel - S rosy or Plasma Pat Peguero MD Work Phone: Plan of Treatment Date Care Activity Detail Author Start: 2036 Shingles (RZV) Vacci ne (1 of 2) Shingles (RZV) Vaccine (1 of 2) [facility] [place] Start: 11-05-2028 Lipid panel Lipid Screening [facility] Start: 11-30-2025 Annual PCP Team Mechanical Estimator chau Disease Visit Annual PCP Team Chronic Disease Visit [facility] Start: 04-26-2025 Influenza vaccination Influenz a Vaccine (Season Ended) [facility] Start: 04-07-2025 End: 04-07-2025 Patient encounter procedure 04/07/2025 9:00 AM EDT Office Visit [facility] [address] [place] [address] Michael Alvarado MD [address] [place] [address] 4 month follow up [facility] Comment on above: 4 month follow up Start: 12-22-2024 End: 12-22-2024 ambulatory 12/22/2024 1:45 PM EDT OT/PT/Speech Visit [facility] [address] [place] [place] [address] Andreina Scanlon, PT, DPT [address] [facility] [place] [address] Tendinitis of left rotator cuff [M75.82] [facility] Comment on above: Tendinitis of left r otator cuff [M75.82] Start: 07-15-2024 End: 07-15-2024 Patient encounter procedure 07/15/2024 8:30 AM EST Office Visit [facility] [address] [place] [address] Darren Stewart MD [address], [address] [place] [address] New patient [facility] Comment on above: New patient Start: 05-28-2024 End: 05-28-2024 Patient encounter procedure 05/28/2024 10:30 AM EDT Office Visit [facility] [address] [place] [id number] Rama Liang, SALES ASSOCIATE FISHING [address] [place], [place] [address] Arrived [facility] Comment on above: [facility] Start: 04-26-2024 Covid-19 Vaccine ( season) Covid-19 Vaccine ( season) [facility] Start: 04-26-2024 Covid-19 Vaccine ( season) Covid-19 Vaccine ( season) [facility] Start: 04-26-2024 Influenza vaccination Influenza Vacc ine (#1) [facility] Start: 04-26-2023 Covid-19 Vaccine ( season) Covid-19 Vaccine ( season) [facility] Start: 02-13-2023 ANNUAL PCP TEAM ASSEMBLER WIRE MESH GATE CHAU DISEASE VISIT ANNUAL PCP TEAM CHRONIC DISEASE VISIT [facility] Start: 04-26-2022 Influenza vaccination INFLUENZ A (Season Ended) [facility] Start: 02-13-2022 End: 04-15-2022 CBC panel - Blood by Automated count CBC Lab Routine Primary hypertension Expected: 02/13/2022, Expires: 04/15/2022 [facility] Work Phone: Comment on above: Expected: 02/13/2022 , Expires: 04/15/2022 Start: 02-13-2022 End: 04-15-2022 Comprehensive metabolic 2000 panel - Serum or Plasma COMP METABOLIC PANEL Lab Routine Primary hypertension Expected: 02/13/2022, Expires: 04/15/2022 [facility] Work Phone: Comment on above: Expected: 02/13/2022 , Expires: 04/15/2022 Start: 02-13-2022 End: 04-15-2022 Lipid 1996 panel - Serum or Plasma LIPID PANEL BASIC Lab Routine Primary hypertension Expected: 02/13/2022, Expires: 04/15/2022 [facility] Work Phone: Comment on above: Expected: 02/13/2022 , Expires: 04/15/2022 Start: 02-13-2022 End: 04-15-2022 Thyrotropin [Units/volume] in Serum or Plasma TSH BLD Lab Routine Primary hypertension Expected: 02/13/2022, Expires: 04/15/2022 [facility] Work Phone: Comment on above: Expected: 02/13/2022 , Expires: 04/15/2022 Start: 2021 Lipid panel [facility] Start: 2021 LIPID SCREEN LIPID SCREEN [facility] Start: 2013 HPV Vaccine (optiona l start 27-45 years) HPV Vaccine (optional start 27-45 years) [facility] Start: 2005 Hepatitis A (HAV) Vaccine (optional start 19+ years) Hepatitis A (HAV) Vaccine (optional start 19+ years) [facility] [place] Start: 2005 Hepatitis B vaccination Hepati tis B (HBV) Vaccine (1 of 3 - 19+ 3-dose series) [facility] Start: 2005 Hepatitis B Vaccine (1 of 3 - 19+ 3-dose series) Hepatitis B Vaccine (1 of 3 - 19+ 3-dose series) [facility] Start: 2005 Pneumococcal vaccination Pneum ococcal Vaccine (1 of 2 - PCV) [facility] Start: 2005 Tetanus vaccination Tetanus (T d or Tdap) Booster [facility] [place] Start: 2005 Urine microalbumin profile [facility] Start: 2004 Anxiety Screening Anxiety Screening [facility] Start: 2004 BP CONTROLLED (<130/80) BP CON TROLLED (<130/80) [facility] Start: 2004 Depression Screening Depression Scre ening [facility] Start: 2004 HEPATITIS C SCREENING HEPATITIS C SC REENING [facility] Start: 2004 Hepatitis C screening C [facility] Start: 2004 HIV SCREENING HIV SCREENING [facility] Start: 2004 HIV screening HIV Screening [facility] Start: 2004 Tdap Booster Tdap Booster [facility] Start: 2001 HIV screening HIV Test [facility] Start: 1998 Adult depression screening assessment DEPRESSION SCREENING [facility] Start: 1992 PNEUMOCOCCAL (1 - PCV) PNEUMOCOCCAL (1 - PCV) [facility] Start: 1992 Pneumococcal vaccination Pneum ococcal Vaccine (1 of 2 - PCV) [facility] Start: 1991 COVID-19 VACCINE (#1) COVID-19 VACCI NE (#1) [facility] MR Brain WO and W contrast IV [facility] End: 12-30-2025 XR Shoulder - left 3 Views XR SHOULDER GENERAL 3V OR MORE AP/TRUE AP/OTHER LEFT Radiology Routine Tendinitis of left rotator cuff 1 Occurrences starting 11/30/2024 until 12/30/2025 [facility] Work Phone: Comment on above: 1 Occurrences starti ng 11/30/2024 until 12/30/2025 [facility] Payers Date Payer Category Payer Self-pay 2024 Unknown [id number] 2024 Commercial Indemnity CELESTINA GERARD ETPLACE Member Subscriber Plan / Payer (Effective 2024-Present) Name: Evin Oviedo Relation to Subscriber: Self Name: Evin Oviedo Payer ID: [id number] (NAIC) Group ID: Not on file Type: Indemnity Address: [address] [address] [id number] 2023 Private Health Insurance [id number] 2023 Unknown [id number] 2023 Unknown [id number] 2021 Medicaid [employer] MEDICAID [id number] 2021-Present [phone] [address] [place] [address] Medicaid [id number] 1986 Unknown [id number] 1986 Unknown [id number] [id number] 1986 Unknown [id number] [id number] 1986 Unknown [id number] [id number] 1986 Unknown [id number] [id number] 1986 Unknown [id number] [id number] Unknown [id number] Unknown [id number] Unknown [id number] [id number] Social History Date Type Detail Facility Tobacco smoking stat [facility] Tobacco smoking consumption unknown [facility] Start: 1985 Sex Assigned At Not on file C [facility] Start: 01-08-2022 End: 02-13-2022 Exposure to SARS-CoV-2 (event) Not sure [facility] Start: 08-26-2006 End: 11-30-2024 Tobacco smoking status NHIS Occasional tobacco smoker [facility] Start: 08-26-2006 History of tobacco use Smoker [facility] Start: 02-13-2022 End: 01-18-2025 Cigarettes smoked current (pack per day) - Reported 0.5 [facility] Start: 02-13-2022 End: 11-30-2024 Tobacco use and exposure Smokeless tobacco non-user [facility] Start: 02-13-2022 End: 01-17-2025 Alcohol intake Ex-drinker (finding) [facility] Start: 08-26-2006 History of tobacco use Cigarette Smo ker [facility] Start: 02-13-2022 End: 01-18-2025 Tobacco use panel [facility] National Score (1-100), lower number is lower risk 98 [facility] Start: 11-11-2023 [facility] Start: 11-11-2023 Alcoholic beverage intake Lifetime non-drinker (finding) [facility] Has the [employer], or [employer] threatened to shut off services in your home in past 12Mo No [facility] Are you now , , , , never or living with a partner? [facility] How often to you hav e a drink containing alcohol? Monthly or less [facility] How many standard drinks containing alcohol do you have on a typical day? 1 or 2 [facility] How often do you hav e 6 or more drinks on 1 occasion? Never [facility] Do you feel stress - tense, restless, nervous, or anxious, or unable to sleep at night because your mind is troubled all the time - these days [OSQ] To some extent [facility] (I/We) worried wheth er (my/our) food would run out before (I/we) got money to buy more. Never true [facility] Start: 01-27-2025 Sex [facility] (finding[facility] Start: 1985 Sex Assigned At Male W [facility] Functional Status Date Assessment Result Facility 11-30-2024 Humiliation, Afraid, Rape, and Kick questionnaire [HARK] [facility] 11-30-2024 Total score [AUDIT-C] 1 12/01/19 2:32 PM EDT Javon Humphries [facility] Clinical Notes 02-13-2022 to 02-25-2025 Note Date & Type Note Facility 02-25-2025 Evaluation note Diagnosis Onset Date Resolution Epilepsy acute February 25, 2025 11:03am [facility] Work Phone: 1(252) 123-434806-11-2025 Telephone encounter Note* Telephone Encounter - Michael Alvarado MD - 02/03/2025 2:20 PM EDT Diagnoses and all orders for this visit: Seizure disorder (HCC) - CONSULT TO NEUROLOGY; Future Tendinitis of left rotator cuff - CONSULT TO PHYSICAL THERAPY; Future This patient gave consent to this Medical Advice Message and is aware that it may result in a bill to their insurance, as well as the possibility of receiving a bill for a copay and/or deductible. They are an established patient, but are not seeking information exclusively about a problem treated during an in person or video visit in the last seven days. I did not recommend an in person or video visit within seven days of my reply. See the [employer] message reply for my assessment and plan. I spent a total of 5 minutes reviewing the patient's prior medical records and current request for medical advice, prescribing medications or ordering tests (if applicable), replying to the patient, and documenting the encounter. [facility]2025 Miscellaneous Notes* Telephone Encounter - Michael Alvarado MD - 02/03/2025 2:20 PM EDT Diagnoses and all orders for this visit: Seizure disorder (HCC) - CONSULT TO NEUROLOGY; Future Tendinitis of left rotator cuff - CONSULT TO PHYSICAL THERAPY; Future This patient gave consent to this Medical Advice Message and is aware that it may result in a bill to their insurance, as well as the possibility of receiving a bill for a copay and/or deductible. They are an established patient, but are not seeking information exclusively about a problem treated during an in person or video visit in the last seven days. I did not recommend an in person or video visit within seven days of my reply. See the [employer] message reply for my assessment and plan. I spent a total of 5 minutes reviewing the patient's prior medical records and current request for medical advice, prescribing medications or ordering tests (if applicable), replying to the patient, and documenting the encounter. documented in this encounter[facility]25 NoteHNO ID: [id number] Author: CRISTIANA BALDWIN RN Service: ? Author Type: Registered Nurse Type: Progress Notes Filed: 01/19/2025 09:36 Note Text: Summary: ED chart review [facility] Chart Review Provider Action/FYI Patient identified by name and date of :YES Patient identified for Care Coordination from: [facility] ED Discharge report Was patient contacted?: No: Does not meet HEDIS measure [facility] requirements, No outreach is necessary Patient discharged from [facility] on 01/17/25 ED Provider Discharge summary: Overall presentation consistent with breakthrough seizure. Patient has remained hemodynamically stable. Discussed findings with patient and patient's . On reassessment, patient is comfortable with discharge at this time. Patient will be discharged with prescription for updated Keppra dosing and given instruction for follow up. Follow-up order was placed for neurology. Patient discharged with instructions for outpatient follow up for symptoms and findings with return precautions for new or worsening symptoms such as fever, altered mental status, continued episodes of breakthrough seizures.. Patient is agreeable with plan and will not hesitate to return to the ED should new concerns arise. Outreach Plan:Follow up call needed:No Cristiana Baldwin [facility]05-27-2025 History of Present illness Narrative* Cristiana Baldwin RN - 01/19/2025 9:35 AM EDTSummary: ED chart review [facility] Chart Review Provider Action/FYI Patient identified by name and date of :YES Patient identified for Care Coordination from: [facility] ED Discharge report Was patient contacted?: No: Does not meet HEDIS measure [facility] requirements, No outreach is necessary Patient discharged from [facility] on 01/17/25 ED Provider Discharge summary: Overall presentation consistent with breakthrough seizure. Patient has remained hemodynamically stable. Discussed findings with patient and patient's . On reassessment, patient is comfortable with discharge at this time. Patient will be discharged with prescription for updated Keppra dosing and given instruction for follow up. Follow-up order was placed for neurology. Patient discharged with instructions for outpatient follow up for symptoms and findings with return precautions for new or worsening symptoms such as fever, altered mental status, continued episodes of breakthrough seizures.. Patient is agreeable with plan and will not hesitate to return to the ED should new concerns arise. Outreach Plan:Follow up call needed:No Cristiana Baldwin RN documented in this encounterSum[facility]25 NotePatient Outreach (MRCAC) EVIN OVIEDO ([id number]) 1985 M Date Time Provider Department 01/19/25 CRISTIANA BALDWIN During your visit today, we recorded the following information about you: Cristiana Baldwin RN 01/19/2025 9:36 AM Signed [facility] Chart Review Provider Action/FYI Patient identified by name and date of :YES Patient identified for Care Coordination from: [facility] ED Discharge report Was patient contacted?: No: Does not meet HEDIS measure [facility] requirements, No outreach is necessary Patient discharged from [facility] on 01/17/25 ED Provider Discharge summary: Overall presentation consistent with breakthrough seizure. Patient has remained hemodynamically stable. Discussed findings with patient and patient's . On reassessment, patient is comfortable with discharge at this time. Patient will be discharged with prescription for updated Keppra dosing and given instruction for follow up. Follow-up order was placed for neurology. Patient discharged with instructions for outpatient follow up for symptoms and findings with return precautions for new or worsening symptoms such as fever, altered mental status, continued episodes of breakthrough seizures.. Patient is agreeable with plan and will not hesitate to return to the ED should new concerns arise. 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 - levETIRAcetam (KEPPRA) 1,000 mg tablet Take 1 tablet by mouth two times a day. - hydroCHLOROthiazide 25 mg tablet Take 1 tablet by mouth once daily. - metoprolol tartrate, short acting, (LOPRESSOR) 50 mg tablet Take 1 tablet by mouth two times a day. 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 Seizure disorder (HCC) - ICD9: 345.90, ICD10: G40.909 - CONSULT TO NEUROLOGY Michael Alvarado MD This patient gave consent to this Medical Advice Message and is aware that it may result in a bill to their insurance, as well as the possibility of receiving a bill for a copay and/or deductible. They are an established patient, but are not seeking information exclusively about a problem treated during an in person or video visit in the last seven days. I did not recommend an in person or video visit within seven days of my reply. See the [employer] message reply for my assessment and plan. I spent a total of 5 minutes reviewing the patient's prior medical records and current request for medical advice, prescribing medications or ordering tests (if applicable), replying to the patient, and documenting the encounter. [facility]04-17-2025 Miscellaneous Notes* Telephone Encounter - Michael Alvarado MD - 12/10/2024 2:02 PM EDT ASSESSMENT/PLAN: 1. Seizure disorder (HCC) - ICD9: 345.90, ICD10: G40.909 - CONSULT TO NEUROLOGY Michael Alvarado MD This patient gave consent to this Medical Advice Message and is aware that it may result in a bill to their insurance, as well as the possibility of receiving a bill for a copay and/or deductible. They are an established patient, but are not seeking information exclusively about a problem treated during an in person or video visit in the last seven days. I did not recommend an in person or video visit within seven days of my reply. See the [employer] message reply for my assessment and plan. I spent a total of 5 minutes reviewing the patient's prior medical records and current request for medical advice, prescribing medications or ordering tests (if applicable), replying to the patient, and documenting the encounter. documented in this encounterSumma Health [facility]04-07-2025 Instructions* Patient Instructions* Michael Alvarado MD - 11/30/2024 2:57 PM EDT - Increase Keppra dosage to 1,000 mg twice daily; prescription sent to [facility] pharmacy. - Continue taking Metoprolol 50 mg twice daily and Hydrochlorothiazide as prescribed; refills sent to pharmacy. - Referral to [facility] in [place] for neurology consultation; contact them to schedule an appointment. - Complete fasting blood work one week before your next appointment. - X-ray of the left shoulder scheduled. - Referral to physical therapy for left shoulder pain. - Next appointment in 4 months. documented in this encounterSumma Health [facility]04-07-2025 NoteHNO ID: [id number] Author: MICHAEL ALVARADO MD Service: ? Author Type: Physician Type: Progress Notes Filed: 11/30/2024 14:58 Note Text: Evin is a 39-year-old male with a history of epilepsy and HTN, presenting for an initial visit and evaluation of seizure management and left shoulder pain. Epilepsy: - Diagnosed in 2021. - Currently taking Keppra 750 mg BID. - Reports breakaway seizures, with the most recent episode occurring yesterday. - Seizures last approximately 5 minutes, followed by 20 minutes of postictal confusion. - Describes feeling low and tired after taking Keppra. - Has not had an MRI; did have an EEG. - Lost neurology care due to insurance changes. HTN: - Managed with metoprolol 50 mg BID and hydrochlorothiazide. - Last blood work in July. Left Shoulder Pain: - Fell in the basement in July, resulting in left shoulder pain. - Pain has persisted since the fall. ALLERGIES Allergen Reactions Seasonale [Levonorg* Cough Current Outpatient Medications Medication Sig levETIRAcetam (KEPPRA) 1,000 mg tablet Take 1 tablet by mouth two times a day. hydroCHLOROthiazide 25 mg tablet Take 1 tablet by mouth once daily. metoprolol tartrate, short acting, (LOPRESSOR) 50 mg tablet Take 1 tablet by mouth two times a day. No current facility-administered medications for this visit. PAST MEDICAL HISTORY Diagnosis Date Anxiety Morbid obesity (HCC) Seizure (HCC) Uncontrolled hypertension PAST SURGICAL HISTORY Procedure Laterality Date KNEE SURGERY HX TONSILLECTOMY HX FAMILY HISTORY Problem Relation Age of Onset Diabetes Mother Hypertension Mother Hyperlipidemia Mother COPD Father Diabetes Sister Asthma Brother Hyperlipidemia Maternal Grandmother Hypertension Maternal Grandmother Kidney Disease Maternal Grandmother Hypertension Maternal Grandfather Hyperlipidemia Maternal Grandfather Diabetes Paternal Grandmother Social History Tobacco Use Smoking status: Some Days Current packs/day: 0.50 Average packs/day: 0.5 packs/day for 18.3 years (9.1 ttl pk-yrs) Types: Cigarettes Start date: 2006 Smokeless tobacco: Never Vaping Use Vaping status: Never Used Substance Use Topics Alcohol use: Not Currently Drug use: Yes Frequency: 7.0 times per week Types: Marijuana Comment: nerves anxiety All medications have been reviewed and verified. Constitutional: (+) fatigue Gastrointestinal: (-) constipation, (-) diarrhea Genitourinary: (-) dysuria, (-) urinary frequency Musculoskeletal: (+) left shoulder pain Neurological: (+) seizures, (-) weakness Psychiatric: (+) low mood VITALS: Blood pressure 128/89, pulse (!) 59, height 175.3 cm (5' 9), weight 127.6 kg (281 lb 3.2 oz), SpO2 98%., Body mass index is 41.53 kg/m?. GENERAL: NAD, alert and oriented. SKIN: Unremarkable, no rash or skin lesions. HEAD: Normocephalic. EYES: PERRLA, EOMI, conjunctiva clear. EARS: External ears normal, canals clear, TM's normal. NOSE/SINUSES: Nares normal. Septum midline. OROPHARYNX: Lips, mucosa, and tongue normal, good dentition. No oral lesions noted. NECK: Supple, no lymphadenopathy, normal thyroid, no carotid bruits. LUNGS: Clear to auscultation bilaterally, no wheezes/rhonchi/rales. HEART: Regular rate and rhythm, no murmurs. No ectopy. EXTREMITIES: Normal, no deformities, no skin discoloration, no edema. NEURO: Awake, alert and oriented x3, cranial nerves II-XII grossly intact, normal gait, no involuntary motions. 1. Obesity, Class III, BMI 40-49.9 (morbid obesity) ([facility]) (E66.01) - BMI 41. - Discussed importance of weight management and encouraged initiation of regular exercise. Obesity Body mass index is 41.53 kg/m?. Last Wt 11/30/24 : 127.6 kg (281 lb 3.2 oz) 5% weight loss = 267 lbs, 10% weight loss = 253 lbs The patient is asked to make an attempt to improve diet and exercise patterns to aid in medical management of this problem. Counseling 15 min . 2. Seizure disorder ([facility]) (G40.909) - Experiencing breakthrough seizures lasting approximately 5 minutes with postictal phase of about 20 minutes. - Currently on Keppra 750 mg BID; increased dosage to 1000 mg BID. - Referred to [facility] in [place] for further evaluation and management. - Previous EEG performed; no MRI conducted. - Prescription sent to [facility] pharmacy. 3. Essential hypertension (I10) - Managed with metoprolol 50 mg BID and hydrochlorothiazide. - Refilled prescriptions for metoprolol and hydrochlorothiazide. - Recent blood work in July; ordered fasting blood work to be done one week prior to next appointment. - Follow-up in 4 months. 4. Cigarette smoker (F17.210) - Advised on smoking cessation. SMOKING CESSATION COUNSELING Discussed risks of smoking and strongly urged patient to quit . Smoking cessation methods including Nicotine Replacement Therapies and Behavior Modification were discussed .The medical conditions adve (more content not included)...[facility]04-07-2025 History of Present illness Narrative * Michael Alvarado MD - 11/30/2024 2:45 PM EDT Evin is a 39-year-old male with a history of epilepsy and HTN, presenting for an initial visit and evaluation of seizure management and left shoulder pain. Epilepsy: - Diagnosed in 2021. - Currently taking Keppra 750 mg BID. - Reports breakaway seizures, with the most recent episode occurring yesterday. - Seizures last approximately 5 minutes, followed by 20 minutes of postictal confusion. - Describes feeling low and tired after taking Keppra. - Has not had an MRI; did have an EEG. - Lost neurology care due to insurance changes. HTN: - Managed with metoprolol 50 mg BID and hydrochlorothiazide. - Last blood work in July. Left Shoulder Pain: - Fell in the basement in July, resulting in left shoulder pain. - Pain has persisted since the fall. ALLERGIES Allergen Reactions Seasonale [Levonorg* Cough Current Outpatient Medications Medication Sig levETIRAcetam (KEPPRA) 1,000 mg tablet Take 1 tablet by mouth two times a day. hydroCHLOROthiazide 25 mg tablet Take 1 tablet by mouth once daily. metoprolol tartrate, short acting, (LOPRESSOR) 50 mg tablet Take 1 tablet by mouth two times a day. No current facility-administered medications for this visit. PAST MEDICAL HISTORY Diagnosis Date Anxiety Morbid obesity (HCC) Seizure (HCC) Uncontrolled hypertension PAST SURGICAL HISTORY Procedure Laterality Date KNEE SURGERY HX TONSILLECTOMY HX FAMILY HISTORY Problem Relation Age of Onset Diabetes Mother Hypertension Mother Hyperlipidemia Mother COPD Father Diabetes Sister Asthma Brother Hyperlipidemia Maternal Grandmother Hypertension Maternal Grandmother Kidney Disease Maternal Grandmother Hypertension Maternal Grandfather Hyperlipidemia Maternal Grandfather Diabetes Paternal Grandmother Social History Tobacco Use Smoking status: Some Days Current packs/day: 0.50 Average packs/day: 0.5 packs/day for 18.3 years (9.1 ttl pk-yrs) Types: Cigarettes Start date: 2006 Smokeless tobacco: Never Vaping Use Vaping status: Never Used Substance Use Topics Alcohol use: Not Currently Drug use: Yes Frequency: 7.0 times per week Types: Marijuana Comment: nerves anxiety All medications have been reviewed and verified. Constitutional: (+) fatigue Gastrointestinal: (-) constipation, (-) diarrhea Genitourinary: (-) dysuria, (-) urinary frequency Musculoskeletal: (+) left shoulder pain Neurological: (+) seizures, (-) weakness Psychiatric: (+) low mood VITALS: Blood pressure 128/89, pulse (!) 59, height 175.3 cm (5' 9), weight 127.6 kg (281 lb 3.2 oz), SpO2 98%., Body mass index is 41.53 kg/m . GENERAL: NAD, alert and oriented. SKIN: Unremarkable, no rash or skin lesions. HEAD: Normocephalic. EYES: PERRLA, EOMI, conjunctiva clear. EARS: External ears normal, canals clear, TM's normal. NOSE/SINUSES: Nares normal. Septum midline. OROPHARYNX: Lips, mucosa, and tongue normal, good dentition. No oral lesions noted. NECK: Supple, no lymphadenopathy, normal thyroid, no carotid bruits. LUNGS: Clear to auscultation bilaterally, no wheezes/rhonchi/rales. HEART: Regular rate and rhythm, no murmurs. No ectopy. EXTREMITIES: Normal, no deformities, no skin discoloration, no edema. NEURO: Awake, alert and oriented x3, cranial nerves II-XII grossly intact, normal gait, no involuntary motions. 1. Obesity, Class III, BMI 40-49.9 (morbid obesity) (HCC) (E66.01) - BMI 41. - Discussed importance of weight management and encouraged initiation of regular exercise. Obesity Body mass index is 41.53 kg/m . Last Wt 11/30/24 : 127.6 kg (281 lb 3.2 oz) 5% weight loss = 267 lbs, 10% weight loss = 253 lbs The patient is asked to make an attempt to improve diet and exercise patterns to aid in medical management of this problem. Counseling 15 min . 2. Seizure disorder (HCC) (G40.909) - Experiencing breakthrough seizures lasting approximately 5 minutes with postictal phase of about 20 minutes. - Currently on Keppra 750 mg BID; increased dosage to 1000 mg BID. - Referred to [facility] [place] for further evaluation and management. - Previous EEG performed; no MRI conducted. - Prescription sent to [facility] pharmacy. 3. Essential hypertension (I10) - Managed with metoprolol 50 mg BID and hydrochlorothiazide. - Refilled prescriptions for metoprolol and hydrochlorothiazide. - Recent blood work in July; ordered fasting blood work to be done one week prior to next appointment. - Follow-up in 4 months. 4. Cigarette smoker (F17.210) - Advised on smoking cessation. SMOKING CESSATION COUNSELING Discussed risks of smoking and strongly urged patient to quit . Smoking cessation methods including Nicotine Replacement Therapies and Behavior Modification were discussed .The medical conditions adversely affected by cigarette use include:COPD and Asthma. I personally spent 4 minutes in counseling. 5. Tendinitis of left rotator cuff (M75.82) - Persistent pain since fall in July. - Ordered X-ray of the left shoulder. - Referred to physical therapy. The patient consented to the use of [employer] software for draft documentation of the visit consistent with [facility] s Notice of Privacy Practices. Michael Alvarado MD documented in this encounterSumma Health W[facility]01-10-2025 Telephone encounter Note * Telephone Encounter - Rama Liang NP - 09/04/2024 9:23 AM EST Please fax eeg results to pcp dr. Yanet dempsey [facility] [id number] Miscellaneous Notes* Telephone Encounter - Rama Liang NP - 09/04/2024 9:23 AM EST Please fax eeg results to pcp dr. Vo thanks documented in this encounterMercy [facility], [facility] [id number] History of Present illness Narrative* Rama Liang NP - 09/04/2024 9:00 AM EST Images from the original note were not included. CHIEF COMPLAINT: Seizures Test results HISTORY OF PRESENT ILLNESS: 39 year old male to follow up on seizures and test results via telemedicine visit, verbal consent obtained. EEG: normal awake and drowsy electroencephalogram. Doing well per patient, denies recent seizures, seizure like activity or nocturnal events. Tolerates keppra well. Denies further questions or concerns. Last visit 05/28/24 MW: 38 year old male presented to office to follow up on seizures. Keppra increased from last visit, doing well, denies further seizures, seizure activity or nocturnal events from last visit. Did not complete eeg. Feels overall anxiety has improved from last visit, since taking keppra routinely. All questions and concerns addressed. Initial visit 11/11/23 NMF: 38 yo male presents for seizure management. Previously saw tao burns but insurance changed. Er visit for sz in jul, had a seizure week ago associated with tongue biting. Shows me a healing laceration on his left tongue border. Reports had restarted keppra 3 weeks prior, 500mg twice daily, had been off for about one month and had one seizure. [facility]eg [facility] at [facility] about 2 years ago. Mri normal 2021 Has been on and off keppra for 2years. A week ago was the only seizure he had while on keppra. Keppra makes him No history of brain injury or infections. No family hx sz. No history of injury, normal development Communications degree, currently working Current Outpatient Medications on File Prior to Visit Medication Sig Dispense Refill levETIRAcetam (Keppra) 750 MG tablet Take 1 tablet (750 mg) by mouth in the morning and 1 tablet (750 mg) before bedtime. 180 tablet 1 No current facility-administered medications on file prior to visit. Past Medical History: Diagnosis Date Hypertension (CMS/HCC) Seizures (CMS/HCC) Past Surgical History: Procedure Laterality Date KNEE SURGERY Bilateral No family history on file. Social History Tobacco Use Smoking status: Former Types: Cigarettes Smokeless tobacco: Never Substance Use Topics Alcohol use: Never ALLERGIES: Patient has no known allergies. REVIEW OF SYSTEMS: General: Appetite change: denies. Chills: denies. Fever: denies. Allergy/Immunology: Unusual rection to medications, food, animals or insects reaction: denies. Ophthalmologic: Visual acuity change: denies. ENT: Decreased hearing: denies. Endocrine: Weight loss: denies. Respiratory: Cough: denies. Wheezing: denies. Cardiovascular: Chest pain: denies. Palpitations: denies. Gastrointestinal: Abdominal pain: denies. Difficulty swallowing: denies Hematology: Bleeding problems: denies. Genitourinary: Painful urination: denies. Musculoskeletal: Joint pain: denies. Joint edema: denies. Skin: Rash: denies. Neurologic: Ataxia: denies, Tremor: denies. Psychiatric Anxiety: denies. Depression: denies. Insomnia: denies. Suicidal thoughts: denies. Also see HPI for elements of ROS documented therein and for details of positive findings, which shall supersede the foregoing. OBJECTIVE: Objective There were no vitals filed for this visit. There is no height or weight on file to calculate BMI. Examination: General Exam: pleasant, well nourished, well developed, in no acute distress Eyes: extraocular movement intact (EOMI) upper eyelids normal , lower eyelids normal Neurologic: nonfocal, alert and oriented, cognitive exam grossly normal, cranial nerves 2-12 grossly intact - Exam limited d/t telemedicine Psych: pleasant, cooperative, good eye contact , speech clear , judgement and insight good ASSESSMENT/PLAN: 1. Partial symptomatic epilepsy with complex partial seizures, not intractable, without status epilepticus (CMS/HCC) Continue keppra 750 mg bid 07/11/24 EEG: normal Pt has been fully educated on their diagnosis, test results, treatment options, follow up plan, andreturn instructions. documented in this encounterMercy [facility] [id number] History of Present illness Narrative* Rama Liang NP - 05/28/2024 10:30 AM EDT Images from the original note were not included. CHIEF COMPLAINT: seizure HISTORY OF PRESENT ILLNESS: 38 year old male presented to office to follow up on seizures. Keppra increased from last visit, doing well, denies further seizures, seizure activity or nocturnal events from last visit. Did not complete eeg. Feels overall anxiety has improved from last visit, since taking keppra routinely. All questions and concerns addressed. Initial visit 11/11/23 NMF: 38 yo male presents for seizure management. Previously saw tao burns but insurance changed. Er visit for sz in jul, had a seizure week ago associated with tongue biting. Shows me a healing laceration on his left tongue border. Reports had restarted keppra 3 weeks prior, 500mg twice daily, had been off for about one month and had one seizure. [facility] about 2 years ago. Mri normal 2021 Has been on and off keppra for 2years. A week ago was the only seizure he had while on keppra. Keppra makes him No history of brain injury or infections. No family hx sz. No history of injury, normal development Communications degree, currently working Current Outpatient Medications on File Prior to Visit Medication Sig Dispense Refill levETIRAcetam (Keppra) 750 MG tablet Take 1 tablet (750 mg) by mouth in the morning and 1 tablet (750 mg) before bedtime. 60 tablet 2 No current facility-administered medications on file prior to visit. Past Medical History: Diagnosis Date Hypertension (CMS/HCC) Seizures (CMS/HCC) Past Surgical History: Procedure Laterality Date KNEE SURGERY Bilateral No family history on file. Social History Tobacco Use Smoking status: Former Types: Cigarettes Smokeless tobacco: Never Substance Use Topics Alcohol use: Never ALLERGIES: Patient has no known allergies. REVIEW OF SYSTEMS: General: Appetite change: denies. Chills: denies. Fever: denies. Allergy/Immunology: Unusual rection to medications, food, animals or insects reaction: denies. Ophthalmologic: Visual acuity change: denies. ENT: Decreased hearing: denies. Endocrine: Weight loss: denies. Respiratory: Cough: denies. Wheezing: denies. Cardiovascular: Chest pain: denies. Palpitations: denies. Gastrointestinal: Abdominal pain: denies. Difficulty swallowing: denies Hematology: Bleeding problems: denies. Genitourinary: Painful urination: denies. Musculoskeletal: Joint pain: denies. Joint edema: denies. Skin: Rash: denies. Neurologic: Ataxia: denies, Tremor: denies. Psychiatric Suicidal thoughts: denies. Also see HPI for elements of ROS documented therein and for details of positive findings, which shall supersede the foregoing. OBJECTIVE: Objective There were no vitals filed for this visit. There is no height or weight on file to calculate BMI. Examination: General Exam: pleasant, well nourished, well developed, in no acute distress Head: normocephalic, atraumatic Eyes: extraocular movement intact (EOMI), pupils equal, round, reactive to light, upper eyelids normal , lower eyelids normal Ears: no obvious hearing deficit Nose: Nares patent Neck/Throat: neck supple, full range of motion Oral Cavity: mucosa moist Skin: warm and dry Heart: no murmurs, regular rate and rhythm, S1, S2 normal Lungs: clear to auscultation bilaterally, good air movement, no wheezes, rales, rhonci, speaks in full sentences Chest: normal shape and expansion Abdomen: bowel sounds present, soft, nontender, nondistended, no guarding or rigidity Extremities: no edema, no cyanosis Musculoskeletal: no swelling or deformity Neurologic: nonfocal, alert and oriented, cognitive exam grossly normal, cranial nerves 2-12 grossly intact, motor strength 5/5 bilateral symmetrically, no drift, coordination intact, sensory exam intact, gait normal Psych: pleasant, cooperative, good eye contact, speech clear, judgement and insight good ASSESSMENT/PLAN: 1. Partial symptomatic epilepsy with complex partial seizures, not intractable, without status epilepticus (CMS/HCC) Continue keppra 750 mg bid Schedule eeg - levETIRAcetam (Keppra) 750 MG tablet; Take 1 tablet (750 mg) by mouth in the morning and 1 tablet(750 mg) before bedtime. Dispense: 180 tablet; Refill: 1 Pt has been fully educated on their diagnosis, treatment options, follow up plan, and return instructions. documented in this encounterMercy [facility], [facility] [id number] Telephone encounter Note* Telephone Encounter - Joana Sanders - 04/14/2024 9:39 AM EDT Scheduled and confirmed with patient Joana Sanders [facility]08-20-2024 Miscellaneous Notes* Telephone Encounter - TommyJoana - 04/14/2024 9:39 AM EDT Scheduled and confirmed with patient Joana Sanders * Telephone Encounter - Clarisse Freeman - 04/13/2024 4:00 PM EDTSummary: Referral Received a referral from [facility]. Patient is referred for uncontrolled hypertension and hypertensive urgency. Scanned referral into chart for review. Please call patient to schedule at [phone]. documented in this encounterSumma Health W[facility]08-19-2024 Telephone encounter Note * Telephone Encounter - Clarisse Freeman - 04/13/2024 4:00 PM EDTSummary: Referral Received a referral from [facility]. Patient is referred for uncontrolled hypertension and hypertensive urgency. Scanned referral into chart for review. Please call patient to schedule at [phone]. [facility]06-21-2022 History of Present illness Narrative* Michael Alvarado MD - 02/13/2022 9:03 AM EDT This note was created using [employer]. Subjective Evin Oviedo is a 36 year old male. The history is provided by the patient. No speech language pathologist prn was used. Seizures This is a recurrent problem. The current episode started more than 1 year ago. The problem occurs intermittently (last seizure was last week , generalised tonic clonic lasted for 10-15 minutes post ictal). The problem has been waxing and waning. Pertinent negatives include no abdominal pain, arthralgias, chest pain, coughing, diaphoresis, fatigue, fever, headaches, joint swelling, rash, sore throat, vertigo or visual change. Nothing aggravates the symptoms. FAMILY HX or renal failure in Aunties Review of Systems Constitutional: Negative for diaphoresis, fatigue and fever. HENT: Negative for sore throat. Eyes: Negative for pain, discharge and itching. Respiratory: Negative for cough. Cardiovascular: Negative for chest pain and leg swelling. Gastrointestinal: Negative for abdominal distention, abdominal pain and anal bleeding. Endocrine: Negative for cold intolerance, heat intolerance and polydipsia. Genitourinary: Negative for difficulty urinating, dysuria and enuresis. Musculoskeletal: Negative for arthralgias and joint swelling. Skin: Negative for pallor and rash. Neurological: Positive for seizures. Negative for vertigo, speech difficulty and headaches. Hematological: Negative for adenopathy. Does not bruise/bleed easily. Objective BP 128/86 (BP Site: Right Arm, BP Position: Sitting, BP Cuff Size: Large Adult) Pulse 69 Temp 36.3 C (97.4 F) Ht 175.3 cm (5' 9) Wt 121.2 kg (267 lb 3.2 oz) SpO2 97% BMI 39.46 kg/m Physical Exam Vitals and nursing note reviewed. Constitutional: General: He is not in acute distress. Appearance: Normal appearance. He is not ill-appearing. HENT: Head: Normocephalic and atraumatic. Nose: Nose normal. No congestion or rhinorrhea. Eyes: Pupils: Pupils are equal, round, and reactive to light. Cardiovascular: Rate and Rhythm: Normal rate and regular rhythm. Pulses: Normal pulses. Heart sounds: Normal heart sounds. No murmur heard. Pulmonary: Effort: Pulmonary effort is normal. No respiratory distress. Breath sounds: Normal breath sounds. No wheezing, rhonchi or rales. Abdominal: General: Bowel sounds are normal. Palpations: Abdomen is soft. There is no mass. Tenderness: There is no abdominal tenderness. Hernia: No hernia is present. Musculoskeletal: General: Normal range of motion. Cervical back: Normal range of motion and neck supple. Lymphadenopathy: Cervical: No cervical adenopathy. Skin: Findings: No bruising, lesion or rash. Neurological: General: No focal deficit present. Mental Status: He is alert. Mental status is at baseline. He is disoriented. Cranial Nerves: No cranial nerve deficit. Motor: No weakness. Coordination: Coordination is intact. Gait: Gait normal. Deep Tendon Reflexes: Reflexes are normal and symmetric. Psychiatric: Mood and Affect: Mood normal. Behavior: Behavior normal. Assessment and Plan ASSESSMENT/PLAN: 1. Seizure disorder (HCC) - ICD9: 345.90, ICD10: G40.909 (primary diagnosis) - LEVETIRACETAM 1,000 MG TABLET 2. Primary hypertension - ICD9: 401.9, ICD10: I10 - good control - Recommended regular aerobic exercise. - Recommend home blood pressure monitoring, to bring results in on next visit - Goal of BP <130/80 - CBC - COMP METABOLIC PANEL - LIPID PANEL BASIC - TSH BLD 3. Smoking - ICD9: 305.1, ICD10: F17.200 - Cessation encouraged. - Physiologic and physical aspects of tobacco addiction as well as strategies for quitting were discussed. - Counseling was given focusing on the harmful effects of this addiction especially given the patient's medical condition(s) which will be worsened because of the chemicals in tobacco. follow up 3 months Michael Alvarado MD [facility] Diagnosis Seizure disorder (HCC)- Primary Unspecified epilepsy without mention of intractable epilepsy Primary hypertension Unspecified essential hypertension Smoking Tobacco use disorder Obesity, Class II, BMI 35-39.9 Obesity, unspecified [facility]* Diagnosis Partial symptomatic epilepsy with complex partial seizures, not intractable, without status epilepticus (CMS/HCC) [facility] Diagnosis Partial symptomatic epilepsy with complex partial seizures, not intractable, without status epilepticus (CMS/HCC)- Primary [facility] Diagnosis Obesity, Class III, BMI >= 40- Primary Morbid obesity Seizure disorder (HCC) Unspecified epilepsy without mention of intractable epilepsy Essential hypertension Unspecified essential hypertension Cigarette smoker Tobacco use disorder Tendinitis of left rotator cuff Disorders of bursae and tendons in shoulder region, unspecified [facility]* Diagnosis Seizure disorder (HCC)- Primary Unspecified epilepsy without mention of intractable epilepsy [facility]* Diagnosis Seizures (HCC)- Primary Other convulsions [facility] Diagnosis Seizure disorder (HCC)- Primary Unspecified epilepsy without mention of intractable epilepsy Tendinitis of left rotator cuff Disorders of bursae and tendons in shoulder region, unspecified documented in this encounter [facility]* Diagnosis Onset Date Resolution Status Admit Date Epilepsy acute February 25, 2025 11:03am [facility] Work Phone: Reason for referral (narrative)No reason for referral information availableBlSt. [facility] Work Phone: Summary Purpose Family History No Family History Records FoundNo Family History Records FoundNo Family History Records FoundNo Family History Records FoundNo Family History Records FoundNo Family History Records FoundNo Family History Records FoundNo Family History Records FoundNo Family History Records Found Advance Directives No Advanced Directives Records FoundNo Advanced Directives Records FoundNo Advanced Directives Records FoundNo Advanced Directives Records FoundNo Advanced Directives Records FoundNo Advanced Directives Records FoundNo Advanced Directives Records FoundNo Advanced Directives Records FoundNo Advanced Directives Records Found Chief Complaint and Reason for Visit Chief Complaint Admit Date SEIZURE DISORDER February 25, 2025 11:03 am Reason for Visit Admit Date Epilepsy February 25, 2025 11:03 am Chief Complaint Admit Date SEIZURE DISORDER February 25, 2025 11:03 am G40.909 - Epilepsy, unspecified, not int ractable, March 22, 2025 8:42am Additional Source Comments Source Comments (unrecognize d section and content) In the event this informatio n is protected by the Federal Confidentiality of Alcohol and Drug Abuse Patient Records regulations: The Federal rules restrict any use of the information to criminally investigate or prosecute any alcohol or drug abuse patient.[facility] the event this information is protected by the Federal Confidentiality of Alcohol and Drug Abuse Patient Records regulations: The Federal rules restrict any use of the information to criminally investigate or prosecute any alcohol or drug abuse patient.[facility] the event this information is protected by the Federal Confidentiality of Alcohol and Drug Abuse Patient Records regulations: The Federal rules restrict any use of the information to criminally investigate or prosecute any alcohol or drug abuse patient.[facility] the event this information is protected by the Federal Confidentiality of Alcohol and Drug Abuse Patient Records regulations: The Federal rules restrict any use of the information to criminally investigate or prosecute any alcohol or drug abuse patient.[facility] Center[facility] the event this information is protected by the Federal Confidentiality of Alcohol and Drug Abuse Patient Records regulations: The Federal rules restrict any use of the information to criminally investigate or prosecute any alcohol or drug abuse patient.[facility] Center[facility] the event this information is protected by the Federal Confidentiality of Alcohol and Drug Abuse Patient Records regulations: The Federal rules restrict any use of the information to criminally investigate or prosecute any alcohol or drug abuse patient.[facility] Center[facility] the event this information is protected by the Federal Confidentiality of Alcohol and Drug Abuse Patient Records regulations: The Federal rules restrict any use of the information to criminally investigate or prosecute any alcohol or drug abuse patient.[facility] Center[facility] the event this information is protected by the Federal Confidentiality of Alcohol and Drug Abuse Patient Records regulations: The Federal rules restrict any use of the information to criminally investigate or prosecute any alcohol or drug abuse patient.[facility] Center[facility] the event this information is protected by the Federal Confidentiality of Alcohol and Drug Abuse Patient Records regulations: The Federal rules restrict any use of the information to criminally investigate or prosecute any alcohol or drug abuse patient.[facility] Center[facility] the event this information is protected by the Federal Confidentiality of Alcohol and Drug Abuse Patient Records regulations: The Federal rules restrict any use of the information to criminally investigate or prosecute any alcohol or drug abuse patient.[facility] (unrecognized sect ion and content) No Status Records FoundNo Status Records FoundNo Status Records FoundNo Status Records FoundNo Status Records FoundNo Status Records FoundNo Status Records FoundNo Status Records FoundNo Status Records Found INFORMATION SOURCE (unrecogn ized section and content) DATE CREATED AUTHOR 11/20/2021 [facility] DATE CREATED AUTHOR AUTHOR'S ORGANIZ ATION 03/28/2022 [facility] ([place]) DATE CREATED AUTHOR AUTHOR'S ORGANIZ ATION 09/09/2024 [facility] EPIC DATE CREATED AUTHOR AUTHOR'S ORGANIZ ATION 09/12/2024 [facility] DATE CREATED AUTHOR AUTHOR'S ORGANIZ ATION 12/17/2024 [facility] DATE CREATED AUTHOR AUTHOR'S ORGANIZ ATION 12/29/2024 [facility] DATE CREATED AUTHOR AUTHOR'S ORGANIZ ATION 02/08/2025 [facility] DATE CREATED AUTHOR AUTHOR'S ORGANIZ ATION 02/23/2025 [facility] DATE CREATED AUTHOR AUTHOR'S ORGANIZ ATION 04/03/2025 [facility] Reason for Visit (unrecogniz ed section and content) Reason Comments Establish Care Seizures Started 1 Month Ago ,2 Episodes Reason Comments Appointment Reason Comments New Patient Evaluation Evin is here today as a new patient to be established. Meaghan Gaines 2024 2:32 PM Specialty Diagnoses / Procedures Referred By Shalini mckoy Referred To Contact [facility] Diagnoses new patient Procedures NEW PATIENT VISIT LEVEL 1 EST PT LEVEL 2 Self [facility] [address] [place] [address] Phone: tel: fax: Referral ID Status Reason Start Date Expiration Date Visits Requested Visits Authorized [id number] Pending Review OON/Self Pay Override 11/05/2024 02/13/2026 1 1 Reason Onset Date Comments Manager Materials Management Ed Follow Up 01/19/2025 Care Teams (unrecognized sec tion and content) Relay Repairer Relationship Specialty Start Date End Date Leida Vo MD [address] [place] [phone] PCP - General Family Medicine 03/09/24 Relay Repairer Relationship Specialty Start Date End Date Leida Vo MD [address] [place] [phone] PCP - General Family Medicine 03/09/24 Relay Repairer Relationship Specialty Start Date End Date Leida Vo MD [address] [place] [phone] PCP - General Family Medicine 03/09/24 Relay Repairer Relationship Specialty Start Date End Date Dave Vo MD [address] [place] [address] PCP - General Internal Medicine 11/04/23 Relay Repairer Relationship Specialty Start Date End Date Dave Vo MD [address] [place], [place] [id number] PCP - General Internal Medicine 11/04/23 Relay Repairer Relationship Specialty Start Date End Date Dave Vo MD [address] [place] [address] PCP - General Internal Medicine 11/04/23 Relay Repairer Relationship Specialty Start Date End Date Michael Alvarado MD [address] [place] [address] PCP - General Family Medicine 11/30/24 Relay Repairer Relationship Specialty Start Date End Date Michael Alvarado MD [address] [place] [address] PCP - General Family Medicine 11/30/24 Relay Repairer Relationship Specialty Start Date End Date Michael Alvarado MD [address] [place] [address] PCP - General Family Medicine 11/30/24 Relay Repairer Relationship Specialty Start Date End Date Michael Alvarado MD [address] [place] [address] PCP - General Family Medicine 11/30/24 Team Status: Inactive Member Role/Relationship Status Dates Dr. Benito Palmer MD Attending Provider Active Start: February 25, 2025 End: February 25, 2025 Team Status: Active Member Role/Relationship Status Dates JUSTUS SALDANA Primary Care Provider Active Team Status: Inactive Member Role/Relationship Status Dates Dr. Benito Palmer MD Attending Provider Active Start: February 25, 2025 End: February 25, 2025 Team Status: Inactive Member Role/Relationship Status Dates Dr. Benito Palmer MD Attending Provider Active Start: March 22, 2025 End: March 22, 2025 Dr. Benito Palmer MD Referring Provider Active Start: March 22, 2025 End: March 22, 2025 AL, SAIF Primary Care Provider Active Start: March 22, 2025 End: March 22, 2025 Goals (unrecognized section and content) Goals may be documented in a n alternate sectionGoals may be documented in an alternate section FOR RECORDS PERTAINING TO PATIENTS WHO ARE OR HAVE BEEN ENROLLED IN A CHEMICAL DEPENDENCY/SUBSTANCEABUSE PROGRAM, SOME INFORMATION MAY BE OMITTED. This clinical summary was aggregated from multiple sources. Caution should be exercised in using it in the provision of clinical care. This summary normalizes information from multiple sources, and as a consequence, information in this document may materially change the coding, format and clinical context of patient data. In addition, data may be omitted in some cases. CLINICAL DECISIONS SHOULD BE BASED ON THE PRIMARY CLINICAL RECORDS. [facility] [employer] [facility]. provides no warranty or guarantee of the accuracy or completeness of information in this document.
--- OUTSIDE RECORDS SUMMARY | 2025-04-05 07:12 | XMS RPT_ITS | CCD ---
Author Organization [facility] Care Team Providers Care Plug Machine Operator Name Role Phone Unavailable Primary Care Provider Unavailtressa Vo MD, Leida Camacho Primary Care Provider Dave Vo MD Primary Care Provider ZEKE GONSALES Attending Unavailable RAMA LIANG Attending Unavailable ZEKE GONSALES Referring Unavailable RAMA LIANG Attending Unavailable DR LEIDA VO MD Primary Care Unavailab BETZAIDA Casanova Attending Unavailable Michael Alvarado MD Primary Care Provider REFERRING, WINNIE CORNELIUS ID Attending Unavailable DR [...] Unavailable Dr. Benito Palmer MD Attending Provider [phone] Dr. Benito Palmer MD Referring Provider JUSTUS [...] [LEVONORGESTREL-E THINYL ESTRAD] Drug Allergy 02-13-2022 [facility] Medications Current Medications Medication Drug [...] KEPPRA (LEVETIRACETAM)on KEPPRA 17.5 ug/mL Normal 10.0-40.0 [facility] Comment on above: Result Comment: Perf ormed at: [facility] - [facility] [address] [id number] Driver'S License Examiner: Brina Quiroz MD, Phone: [phone] Performed By: #### L 500.7524, L3310.0000, L100.0500, P001.9520, L503.5510, L501.5200 #### [facility] [address] [place], [address] Ammoniaon 03-22-2025 Ammonia (P) [Moles/Vol] 40.5 umol/L Normal 16-60 [facility] Comment on above: Performed By: #### L 500.4050, L3310.0000, L100.0500, L501.9520, L503.5510, L501.5200 #### [facility] [address] [place], [address] Anion gap in Serum or Plasma Ordered By: Benito Palmer on 03-22-2025 Anion gap [Moles/Vol] 11 mmol/L 5-15 [facility] BUN/creatinine ratioOrdered By: Benito Palmer on 03-22-2025 Urea nitrogen/Creatinine [Mass ratio] 11.9 mg/mg 10- [facility] Bilirubin, totalOrdered By: Benito Palmer on 03-22-2025 Bilirubin [Mass/Vol] 0.45 mg/dL 0.00-1.30 [facility] CBC-Complete Blood Cnt No Di ffon 03-22-2025 Erythrocyte distribution width (RBC) [Ratio] 13.7 % Normal 11.6-14.6 [facility] Comment on above: Performed By: #### L 500.4050, L3310.0000, L100.0500, L501.9520, L503.5510, L501.5200 #### [facility] [address] [place], [address] Hematocrit (Bld) [Volume fraction] 41.1 % Normal 40-54 [facility] Comment on above: Performed By: #### L 500.4050, L3310.0000, L100.0500, L501.9520, L503.5510, L501.5200 #### [facility] [address] [place], [address] Hemoglobin (Bld) [Mass/Vol] 14.0 g/dL Normal 13.0-16.5 [facility] Comment on above: Performed By: #### L 500.4050, L3310.0000, L100.0500, L501.9520, L503.5510, L501.5200 #### [facility] [address] [place], [address] MCH (RBC) [Entitic mass] 28.6 pg Normal 27.0-32.0 [facility] Comment on above: Performed By: #### L 500.4050, L3310.0000, L100.0500, L501.9520, L503.5510, L501.5200 #### [facility] [address] [place], [address] MCHC (RBC) [Mass/Vol] 34.1 g/dL Normal 32-36 [facility] Comment on above: Performed By: #### L 500.4050, L3310.0000, L100.0500, L501.9520, L503.5510, L501.5200 #### [facility] [address] [place], [address] MCV (RBC) [Entitic vol] 84.0 fL Normal 80-94 [facility] Comment on above: Performed By: #### L 500.4050, L3310.0000, L100.0500, L501.9520, L503.5510, L501.5200 #### [facility] [address] [place], [address] Platelet mean volume (Bld) [Entitic vol] 10.6 fL Normal 6.2-12.0 [facility] Comment on above: Performed By: #### L 500.4050, L3310.0000, L100.0500, L501.9520, L503.5510, L501.5200 #### [facility] [address] [place], [address] Platelets (Bld) [#/Vol] 273 10*3/uL Normal 150-450 [facility] Comment on above: Performed By: #### L 500.4050, L3310.0000, L100.0500, L501.9520, L503.5510, L501.5200 #### [facility] [address] [place], [address] RBC (Bld) [#/Vol] 4.89 10*6/uL Normal 4.6-6.2 [facility] Comment on above: Performed By: #### L 500.4050, L3310.0000, L100.0500, L501.9520, L503.5510, L501.5200 #### [facility] [address] [place], [address] RDW SD 42.4 fl Normal 35.1-43.9 [facility] Comment on above: Performed By: #### L 500.4050, L3310.0000, L100.0500, L501.9520, L503.5510, L501.5200 #### [facility] [address] [place], [address] WBC (Bld) [#/Vol] 8.6 10*3/uL Normal 4.4-11.0 [facility] Comment on above: Performed By: #### L 500.4050, L3310.0000, L100.0500, L501.9520, L503.5510, L501.5200 #### [facility] [address] [place], [address] Carbon dioxide, total [Moles /volume] in Central venous bloodOrdered By: Benito Palmer on 03-22-2025 CO2 [Moles/Vol] 22.8 mmol/L 21.0-32.0 [facility] Chloride assayOrdered By: Ra isaac Palmer on 03-22-2025 Chloride [Moles/Vol] 107 mmol/L 98-108 [facility] Comprehensive Metabolic Prof ilon 03-22-2025 Albumin [Mass/Vol] 4.3 g/dL Normal 3.5-5.0 [facility] Comment on above: Performed By: #### L 500.4050, L3310.0000, L100.0500, L501.9520, L503.5510, L501.5200 #### [facility] [address] [place], [address] Albumin/Globulin [Mass ratio] 1.6 {ratio} Normal 0.9-2.4 [facility] Comment on above: Performed By: #### L 500.4050, L3310.0000, L100.0500, L501.9520, L503.5510, L501.5200 #### [facility] [address] [place], [address] ALK PHOS 95 U/L Normal 40-129 [facility] Comment on above: Performed By: #### L 500.4050, L3310.0000, L100.0500, L501.9520, L503.5510, L501.5200 #### [facility] [address] [place], [address] ALT [Catalytic activity/Vol] 44 U/L Normal <=46 [facility] Comment on above: Performed By: #### L 500.4050, L3310.0000, L100.0500, L501.9520, L503.5510, L501.5200 #### [facility] [address] [place], [address] AST [Catalytic activity/Vol] 32 U/L Normal <=37 [facility] Comment on above: Performed By: #### L 500.4050, L3310.0000, L100.0500, L501.9520, L503.5510, L501.5200 #### [facility] [address] [place], [address] Bilirubin [Mass/Vol] 0.45 mg/dL Normal 0.00-1.30 [facility] Comment on above: Performed By: #### L 500.4050, L3310.0000, L100.0500, L501.9520, L503.5510, L501.5200 #### [facility] [address] [place], [address] BUN/CRE 11.9 RATIO Normal 10-20 [facility] Comment on above: Performed By: #### L 500.4050, L3310.0000, L100.0500, L501.9520, L503.5510, L501.5200 #### [facility] [address] [place], [address] Calcium [Mass/Vol] 9.2 mg/dL Normal 7.6-11.0 [facility] Comment on above: Performed By: #### L 500.4050, L3310.0000, L100.0500, L501.9520, L503.5510, L501.5200 #### [facility] [address] [place], [address] Chloride [Moles/Vol] 107 mmol/L Normal 98-108 [facility] Comment on above: Performed By: #### L 500.4050, L3310.0000, L100.0500, L501.9520, L503.5510, L501.5200 #### [facility] [address] [place], [address] CO2 [Moles/Vol] 22.8 mmol/L Normal 21.0-32.0 [facility] Comment on above: Performed By: #### L 500.4050, L3310.0000, L100.0500, L501.9520, L503.5510, L501.5200 #### [facility] [address] [place], [address] Creatinine [Mass/Vol] 0.73 mg/dL Normal 0.70-1.20 [facility] Comment on above: Performed By: #### L 500.4050, L3310.0000, L100.0500, L501.9520, L503.5510, L501.5200 #### [facility] [address] [place], [address] GAP 11 Normal 5-15 [facility] Comment on above: Performed By: #### L 500.4050, L3310.0000, L100.0500, L501.9520, L503.5510, L501.5200 #### [facility] [address] [place], [place], [id number] (824) GFR/1.73 sq M.predicted among non-blacks MDRD (S/P/Bld) [Vol rate/Area] 119 mL/min/{1.73_m2} Normal >60 [facility] Comment on above: Result Comment: mL/m in/1.73m2 CKD-EPI Creatinine Equation (2020) Performed By: #### L 500.4050, L3310.0000, L100.0500, L501.9520, L503.5510, L501.5200 #### [facility] [address] [place], [address] Globulin (S) [Mass/Vol] 2.7 g/dL Normal 2.2-4.2 [facility] Comment on above: Performed By: #### L 500.4050, L3310.0000, L100.0500, L501.9520, L503.5510, L501.5200 #### [facility] [address] [place], [address] Glucose [Mass/Vol] 107 mg/dL High 70-99 [facility] Comment on above: Performed By: #### L 500.4050, L3310.0000, L100.0500, L501.9520, L503.5510, L501.5200 #### [facility] [address] [place], [address] Potassium [Moles/Vol] 4.5 mmol/L Normal 3.3-5.1 [facility] Comment on above: Performed By: #### L 500.4050, L3310.0000, L100.0500, L501.9520, L503.5510, L501.5200 #### [facility] [address] [place], [address] Sodium [Moles/Vol] 141 mmol/L Normal 133-145 [facility] Comment on above: Performed By: #### L 500.4050, L3310.0000, L100.0500, L501.9520, L503.5510, L501.5200 #### [facility] [address] [place], [address] T PROT 6.9 g/dL Normal 5.9-8.4 [facility] Comment on above: Performed By: #### L 500.4050, L3310.0000, L100.0500, L501.9520, L503.5510, L501.5200 #### [facility] [address] [place], [address] Urea nitrogen [Mass/Vol] 9 mg/dL Normal 4-19 [facility] Comment on above: Performed By: #### L 500.4050, L3310.0000, L100.0500, L501.9520, L503.5510, L501.5200 #### [facility] [address] [place], [address] Erythrocyte distribution wid th ratioOrdered By: Benito Palmer on 03-22-2025 Erythrocyte distribution width (RBC) [Ratio] 13.7 % 11.6-14.6 [facility] Erythrocyte distribution wid th standard deviationOrdered By: Benito Palmer on 03-22-2025 Erythrocyte distribution width (RBC) [Ratio] 42.4 fl 35.1-43.9 [facility] Glomerular filtration rate ( GFR) estimation/1.73 sq m using serum, plasma, or whole bOrdered By: Benito Palmer on 03-22-2025 GFR/1.73 sq M.predicted among non-blacks MDRD (S/P/Bld) [Vol rate/Area] 119 mL/min/{1.73_m2} >60 [facility] Comment on above: mL/min/1.73m2 CKD-EP I Creatinine Equation (2020) Hematocrit Auto (Bld) [Volum e fraction]Ordered By: Benito Palmer on 03-22-2025 Hematocrit (Bld) [Volume fraction] 41.1 % 40-54 [facility] Hemoglobin measurementOrdere d By: Benito Palmer on 03-22-2025 Hemoglobin (Bld) [Mass/Vol] 14.0 g/dL 13.0-16.5 [facility] Laboratory - Chemistry and C hemistry - challengeOrdered By: Benito Palmer on 03-22-2025 AST [Catalytic activity/Vol] 32 U/L <38 [facility] LevetiracetamOrdered By: Ted Palmer on 03-22-2025 levETIRAcetam [Mass/Vol] 17.5 ug/mL 10.0-40.0 [facility] Comment on above: Performed at: [address] [id number] Director: Brina Quiroz MD, Phone: [phone] MCV (mean corpuscular volume ) determinationOrdered By: Benito Palmer on 03-22-2025 MCV (RBC) [Entitic vol] 84.0 fL 80-94 [facility] Magnesiumon 03-22-2025 Magnesium [Mass/Vol] 2.0 mg/dL Normal 1.5-2.2 [facility] Comment on above: Performed By: #### L 500.4050, L3310.0000, L100.0500, L501.9520, L503.5510, L501.5200 #### [facility] [address] [place], [address] Magnesium measurement (mass/ volume)Ordered By: Benito Palmer on 03-22-2025 Magnesium (Unsp spec) [Mass/Vol] 2.0 mg/dL 1.5-2.2 [facility] Mean corpuscular hemoglobin (MCH) determinationOrdered By: Benito Palmer on 03-22-2025 MCH (RBC) [Entitic mass] 28.6 pg 27.0-32.0 [facility] Mean corpuscular hemoglobin concentration (MCHC) determinationOrdered By: Benito Palmer on 03-22-2025 MCHC (RBC) [Mass/Vol] 34.1 g/dL 32-36 [facility] Mean platelet volume determi nationOrdered By: Benito Palmer on 03-22-2025 Platelet mean volume (Bld) [Entitic vol] 10.6 fL 6.2-12.0 [facility] Platelet countOrdered By: Ra isaac Palmer on 03-22-2025 Platelets (Bld) [#/Vol] 273 10*3/uL 150-450 [facility] Potassium measurement (mass/ volume)Ordered By: Benito Palmer on 03-22-2025 Potassium (Unsp spec) [Mass/Vol] 4.5 mmol/L 3.3-5.1 [facility] RBC Auto (Bld) [#/Vol]Ordere d By: Benito Palmer on 03-22-2025 RBC (Bld) [#/Vol] 4.89 10*6/uL 4.6-6.2 [facility] Serum creatinine measurement (mass/volume)Ordered By: Benito Palmer on 03-22-2025 Creatinine [Mass/Vol] 0.73 mg/dL 0.70-1.20 [facility] Serum globulin measurementOr dered By: Benito Palmer on 03-22-2025 Globulin (S) [Mass/Vol] 2.7 g/dL 2.2-4.2 [facility] Serum glucose measurement (m ass/volume)Ordered By: Benito Palmer on 03-22-2025 Glucose [Mass/Vol] 107 mg/dL High 70-99 [facility] Serum or plasma alanine ramirez otransferase (ALT) measurementOrdered By: Benito Palmer on 03-22-2025 ALT [Catalytic activity/Vol] 44 U/L <47 [facility] Serum or plasma albumin valorie urement (mass/volume)Ordered By: Benito Palmer on 03-22-2025 Albumin [Mass/Vol] 4.3 g/dL 3.5-5.0 [facility] Serum or plasma albumin/glob ulin mass ratioOrdered By: Benito Palmer on 03-22-2025 Albumin/Globulin [Mass ratio] 1.6 {ratio} 0.9-2.4 [facility] Serum or plasma alkaline kylah sphatase measurementOrdered By: Benito Palmer on 03-22-2025 ALP [Catalytic activity/Vol] 95 U/L 40-129 [facility] Serum or plasma calcium valorie urement (mass/volume)Ordered By: Benito Palmer on 03-22-2025 Calcium [Mass/Vol] 9.2 mg/dL 7.6-11.0 [facility] Serum or plasma urea nitroge n measurement (mass/volume)Ordered By: Benito Palmer on 03-22-2025 Urea nitrogen [Mass/Vol] 9 mg/dL 4-19 [facility] Sodium levelOrdered By: Elbert Palmer on 03-22-2025 Sodium [Moles/Vol] 141 mmol/L 133-145 [facility] TSH DL <= 0.005 mIU/L QnOrde red By: Benito Palmer on 03-22-2025 TSH Qn 1.270 uIU/mL 0.300-4.200 [facility] Thyroid Stim Hormone (TSH)on 03-22-2025 TSH 1.270 uIU/mL Normal 0.300-4.200 [facility] Comment on above: Performed By: #### L 500.4050, L3310.0000, L100.0500, L501.9520, L503.5510, L501.5200 #### [facility] [address] [place], [place], [id number] Total proteinOrdered By: Ted Palmer on 03-22-2025 Protein [Mass/Vol] 6.9 g/dL 5.9-8.4 [facility] Venous blood ammonia measure mentOrdered By: Benito Palmer on 03-22-2025 Ammonia (P) [Moles/Vol] 40.5 umol/L 16-60 [facility] White blood cell (WBC) count Ordered By: Benito Palmer on 03-22-2025 WBC (Bld) [#/Vol] 8.6 10*3/uL 4.4-11.0 [facility] Neurology Visit Reporton Neurology Visit Report [facility] [address], [address] [place] [address] OFFICE VISIT Date of Service: 02/25/25 MR#: [id number] Acct: [id number] Name: EVIN OVIEDO Rep #: [id number] : 1985 Provider: Dr. Benito cho MD Age/Sex: 39/M Location: [facility] Status: Signed HPI HPI Chief Complaint: [...] not have any history of concussion or OPTIMIZATION CONSULTANT infection. He does not have any significant [...] bilaterally Sup (more content not included)... Normal [facility] Telephone Encounteron 2024 Medical Tech Authentication Interface Message Text Neurology Clinical Dope Dry House Operator Note Attempted to call patient. LVM to return call to the Neurology department to schedule a neurology appt for seizures. Letter sent JANE Barney, RN, CMSRN Clinical Dope Dry House Operator, Neurology [facility] Letter Text Normal [facility] CBC W Auto Differential pane l (Bld)on 01-17-2025 Basophils (Bld) [#/Vol] 10*3/uL Normal <0.11 [facility] Comment on above: Order Comment: Speci men Type: BLOOD SPECIMEN Ordering Facility: [facility] Address: [address] [place] [address] Performed By: #### 5 7021-8 #### [facility] CLIA [id number] [address] [place] [address] [place] Basophils/100 WBC (Bld) 0.2 % Normal [facility] Comment on above: Order Comment: Tevini deni Type: BLOOD SPECIMEN Ordering Facility: [facility] Address: [address] [place] [address] Performed By: #### 5 7021-8 #### [facility] CLIA [id number] [address] [place] [address] [place] Differential cell count method Nom (Bld) Auto Normal [facility] Comment on above: Order Comment: Speci men Type: BLOOD SPECIMEN Ordering Facility: [facility] Address: [address] [place] [address] Performed By: #### 5 7021-8 #### [facility] CLIA [id number] [address] [place] [address] [place] Eosinophils (Bld) [#/Vol] 0.15 10*3/uL Normal <0.46 [facility] Comment on above: Order Comment: Speci men Type: BLOOD SPECIMEN Ordering Facility: [facility] Address: [address] [place] [address] Performed By: #### 5 7021-8 #### [facility] CLIA [id number] [address] [place] [address] [place] Eosinophils/100 WBC (Bld) 1.4 % Normal [facility] Comment on above: Order Comment: Speci men Type: BLOOD SPECIMEN Ordering Facility: [facility] Address: [address] [place] [address] Performed By: #### 5 7021-8 #### [facility] CLIA [id number] [address] [place] [address] [place] Erythrocyte distribution width (RBC) [Ratio] 13.0 % Normal 11.5-15.0 [facility] Comment on above: Order Comment: Speci men Type: BLOOD SPECIMEN Ordering Facility: [facility] Address: [address] [place] [address] Performed By: #### 5 7021-8 #### [facility] CLIA [id number] [address] [place] [address] [place] Hematocrit (Bld) [Volume fraction] 42.9 % Normal 39.0-51.0 [facility] Comment on above: Order Comment: Speci men Type: BLOOD SPECIMEN Ordering Facility: [facility] Address: [address] [place] [address] Performed By: #### 5 7021-8 #### [facility] CLIA [id number] [address] [place], [place] [address] [place] Hemoglobin (Bld) [Mass/Vol] 14.7 g/dL Normal 13.0-17.0 [facility] Comment on above: Order Comment: Speci men Type: BLOOD SPECIMEN Ordering Facility: [facility] Address: [address] [place] [address] Performed By: #### 5 7021-8 #### [facility] CLIA [id number] [address] [place] [address] [place] Immature granulocytes (Bld) [#/Vol] 0.06 10*3/uL Normal <0.10 [facility] Comment on above: Order Comment: Speci men Type: BLOOD SPECIMEN Ordering Facility: [facility] Address: [address] [place] [address] Performed By: #### 5 7021-8 #### [facility] CLIA [id number] [address] [place] [address] [place] Immature granulocytes/100 WBC (Bld) 0.6 % Normal [facility] Comment on above: Order Comment: Speci men Type: BLOOD SPECIMEN Ordering Facility: [facility] Address: [address] [place] [address] Performed By: #### 5 7021-8 #### [facility] CLIA [id number] [address] [place] [address] [place] Lymphocytes (Bld) [#/Vol] 1.97 10*3/uL Normal 1.00-4.00 [facility] Comment on above: Order Comment: Speci men Type: BLOOD SPECIMEN Ordering Facility: [facility] Address: [address] [place] [address] Performed By: #### 5 7021-8 #### [facility] CLIA [id number] [address] [place], [place] [address] [place] Lymphocytes/100 WBC (Bld) 18.7 % Normal [facility] Comment on above: Order Comment: Speci men Type: BLOOD SPECIMEN Ordering Facility: [facility] Address: [address] [place] [address] Performed By: #### 5 7021-8 #### [facility] CLIA [id number] [address] [place] [address] [place] MCH (RBC) [Entitic mass] 28.4 pg Normal 26.0-34.0 [facility] Comment on above: Order Comment: Speci men Type: BLOOD SPECIMEN Ordering Facility: [facility] Address: [address] [place] [address] Performed By: #### 5 7021-8 #### [facility] CLIA [id number] [address] [place] [address] [place] MCHC (RBC) [Mass/Vol] 34.3 g/dL Normal 30.5-36.0 [facility] Comment on above: Order Comment: Speci men Type: BLOOD SPECIMEN Ordering Facility: [facility] Address: [address] [place] [address] Performed By: #### 5 7021-8 #### [facility] CLIA [id number] [address] [place] [address] [place] MCV (RBC) [Entitic vol] 82.8 fL Normal 80.0-100.0 [facility] Comment on above: Order Comment: Speci men Type: BLOOD SPECIMEN Ordering Facility: [facility] Address: [address] [place] [address] Performed By: #### 5 7021-8 #### [facility] CLIA [id number] [address] [place] [address] [place] Monocytes (Bld) [#/Vol] 0.76 10*3/uL Normal <0.87 [facility] Comment on above: Order Comment: Speci men Type: BLOOD SPECIMEN Ordering Facility: [facility] Address: [address] [place] [address] Performed By: #### 5 7021-8 #### [facility] CLIA [id number] [address] [place] [address] [place] Monocytes/100 WBC (Bld) 7.2 % Normal [facility] Comment on above: Order Comment: Speci men Type: BLOOD SPECIMEN Ordering Facility: [facility] Address: [address] [place] [address] Performed By: #### 5 7021-8 #### [facility] [facility] CLIA [id number] [address] [place] [address] [place] Neutrophils (Bld) [#/Vol] 7.55 10*3/uL High 1.45-7.50 [facility] Comment on above: Order Comment: Speci men Type: BLOOD SPECIMEN Ordering Facility: [facility] Address: [address] [place] [address] Performed By: #### 5 7021-8 #### [facility] CLIA [id number] [address] [place] [address] [place] Neutrophils/100 WBC (Bld) 71.9 % Normal [facility] Comment on above: Order Comment: Speci men Type: BLOOD SPECIMEN Ordering Facility: [facility] Address: [address] [place] [address] Performed By: #### 5 7021-8 #### [facility] CLIA [id number] [address] [place] [address] [place] Nucleated RBC (Bld) [#/Vol] 10*3/uL Normal <0.01 [facility] Comment on above: Order Comment: Speci men Type: BLOOD SPECIMEN Ordering Facility: [facility] Address: [address] [place] [address] Performed By: #### 5 7021-8 #### [facility] CLIA [id number] [address] [place] [address] [place] Nucleated RBC/100 WBC (Bld) [Ratio] 0.0 /100 WBC Normal [facility] Comment on above: Order Comment: Speci men Type: BLOOD SPECIMEN Ordering Facility: [facility] Address: [address] [place] [address] Performed By: #### 5 7021-8 #### [facility] CLIA [id number] [address] [place], [place] [address] [place] Platelet mean volume (Bld) [Entitic vol] 10.6 fL Normal 9.0-12.7 [facility] Comment on above: Order Comment: Speci men Type: BLOOD SPECIMEN Ordering Facility: [facility] Address: [address] [place] [address] Performed By: #### 5 7021-8 #### [facility] CLIA [id number] [address] [place] [address] [place] Platelets (Bld) [#/Vol] 295 10*3/uL Normal 150-400 [facility] Comment on above: Order Comment: Speci men Type: BLOOD SPECIMEN Ordering Facility: [facility] Address: [address] [place] [address] Performed By: #### 5 7021-8 #### [facility] CLIA [id number] [address] [place] [address] [place] RBC (Bld) [#/Vol] 5.18 10*6/uL Normal 4.20-6.00 [facility] Comment on above: Order Comment: Speci men Type: BLOOD SPECIMEN Ordering Facility: [facility] Address: [address] [place] [address] Performed By: #### 5 7021-8 #### [facility] CLIA [id number] [address] [place] [address] [place] WBC (Bld) [#/Vol] 10.51 10*3/uL Normal 3.70-11.00 [facility] Comment on above: Order Comment: Speci men Type: BLOOD SPECIMEN Ordering Facility: [facility] Address: [address] [place] [address] Performed By: #### 5 7021-8 #### [facility] CLIA [id number] [address] [place], [place] [address] [facility] [place] Comprehensive metabolic 2000 panelon 01-17-2025 Albumin [Mass/Vol] 3.9 g/dL Normal 3.2-5.0 [facility] Comment on above: Order Comment: Speci men Type: BLOOD SPECIMEN Ordering Facility: [facility] Address: [address] [place] [address] Performed By: #### 2 4323-8, #### [facility] CLIA [id number] [address] [place] [address] [place] ALP [Catalytic activity/Vol] 112 U/L Normal 45-117 [facility] Comment on above: Order Comment: Speci men Type: BLOOD SPECIMEN Ordering Facility: [facility] Address: [address] [place] [address] Performed By: #### 2 4323-8, #### [facility] CLIA [id number] [address] [place] [address] [place] ALT [Catalytic activity/Vol] 32 U/L Normal 13-61 [facility] Comment on above: Order Comment: Speci men Type: BLOOD SPECIMEN Ordering Facility: [facility] Address: [address] [place] [address] Result Comment: Resu lts may be falsely depressed after the administration of Sulfasalazine and/or Sulfapyridine. Performed By: #### 2 4323-8, #### [facility] CLIA [id number] [address] [place], [place] [address] [place] Anion gap [Moles/Vol] 7 mmol/L Normal 5-16 [facility] Comment on above: Order Comment: Speci men Type: BLOOD SPECIMEN Ordering Facility: [facility] Address: [address] [place] [address] Performed By: #### 2 4323-8, #### [facility] CLIA [id number] [address] [place] [address] [place] AST [Catalytic activity/Vol] 20 U/L Normal 8-34 [facility] Comment on above: Order Comment: Speci men Type: BLOOD SPECIMEN Ordering Facility: [facility] Address: [address] [place] [address] Result Comment: Resu lts may be falsely depressed after the administration of Sulfasalazine and/or Sulfapyridine. Performed By: #### 2 4323-8, #### [facility] CLIA [id number] [address] [place], [place] [address] [place] Bilirubin [Mass/Vol] 0.3 mg/dL Normal 0.2-1.0 [facility] Comment on above: Order Comment: Speci men Type: BLOOD SPECIMEN Ordering Facility: [facility] Address: [address] [place], [place] [address] Performed By: #### 2 4323-8, #### [facility] CLIA [id number] [address] [place] [address] [place] Calcium [Mass/Vol] 9.7 mg/dL Normal 8.5-10.5 [facility] Comment on above: Order Comment: Speci men Type: BLOOD SPECIMEN Ordering Facility: [facility] Address: [address] [place], [place] [address] Performed By: #### 2 4323-8, #### [facility] CLIA [id number] [address] [place] [address] [place] Chloride [Moles/Vol] 108 mmol/L High 98-107 [facility] Comment on above: Order Comment: Speci men Type: BLOOD SPECIMEN Ordering Facility: [facility] Address: [address] [place] [address] Performed By: #### 2 4323-8, #### [facility] CLIA [id number] [address] [place], [place] [address] [place] CO2 [Moles/Vol] 26 mmol/L Normal 21-32 [facility] Comment on above: Order Comment: Speci men Type: BLOOD SPECIMEN Ordering Facility: [facility] Address: [address] [place] [address] Performed By: #### 2 4323-8, #### [facility] CLIA [id number] [address] [place] [address] [place] Creatinine [Mass/Vol] 0.90 mg/dL Normal 0.50-1.40 [facility] Comment on above: Order Comment: Abner cheema Type: BLOOD SPECIMEN Ordering Facility: [facility] Address: [address] [place] [address] Result Comment: Anel ents receiving either N-Acetylcysteine (NAC) or Metamizole prior to venipuncture, may have falsely depressed results. Performed By: #### 2 4323-8, #### [facility] CLIA [id number] [address] [place] [address] [facility] [place] Creatinine and Glomerular filtration rate.predicted panel (S/P/Bld) 112 mL/min/1.73m??? Normal >=60 [facility] Comment on above: Order Comment: Abner cheema Type: BLOOD SPECIMEN Ordering Facility: [facility] Address: [address] [place] [address] Result Comment: Sol mated Glomerular Filtration Rate [...] actual GFR. Performed By: #### 2 4323-8, 71733-2 #### [facility] CLIA [id number] [address] [place], [place] [address] [place] Glucose [Mass/Vol] 107 mg/dL High 70-100 [facility] Comment on above: Order Comment: Abner cheema Type: BLOOD SPECIMEN Ordering Facility: [facility] Address: [address] [place] [id number] Result Comment: The [place] [employer] (ADA) provides guidance for cutoff [...] Standards of Medical Care in Diabetes 2016, [place] [employer]. Diabetes Care. 2016.39(Suppl 1). Results may be falsely elevated after the administration of Sulfapyridine. Results may be falsely depressed after the administration of Sulfasalazine. Performed By: #### 2 4323-8, #### [facility] CLIA [id number] [address] [place] [address] [place] Potassium [Moles/Vol] 4.4 mmol/L Normal 3.5-5.1 [facility] Comment on above: Order Comment: Abner cheema Type: BLOOD SPECIMEN Ordering Facility: [facility] Address: [address] [place] [address] Performed By: #### 2 4328, #### [facility] CLIA [id number] [address] [place] [address] [place] Protein [Mass/Vol] 7.2 g/dL Normal 6.0-8.5 [facility] Comment on above: Order Comment: Abner cheema Type: BLOOD SPECIMEN Ordering Facility: [facility] Address: [address] [place] [address] Performed By: #### 2 4323, #### [facility] CLIA [id number] [address] [place], [place] [address] [place] Sodium [Moles/Vol] 141 mmol/L Normal 136-145 [facility] Comment on above: Order Comment: Abner cheema Type: BLOOD SPECIMEN Ordering Facility: [facility] Address: [address] [place] [address] Performed By: #### 2 4323-8, #### [facility] CLIA [id number] [address] [place], [place] [address] [place] Urea nitrogen [Mass/Vol] 8 mg/dL Normal 7-26 [facility] Comment on above: Order Comment: Speci men Type: BLOOD SPECIMEN Ordering Facility: [facility] Address: [address], [place] [address] Performed By: #### 2 4323-8, 36942-6 #### [facility] CLIA [id number] [address] [place] [address] [facility] [place] ED NOTEon 01-17-2025 ED NOTE HNO ID: [id number] Author: TAO BEASLEY Medic Service: ? Author Type: Crossing Tender and Catch Basin Cleaner Type: ED Notes Filed: 01/17/2025 18:54 Note Text: Bed: 30-ED Expected date: 01/17/25 Expected time: Means of arrival: Comments: oli Cross [facility] ED PROV NOTEon 01-17-2025 ED PROV NOTE HNO ID: [id number] Author: JULIETTE GARDINER PA-C Service: ? Author Type: Physician Concrete Pourer Type: ED Provider Notes Filed: 01/18/2025 00:31 [...] Final Result IMPRESSION: No acute cardiopulmonary findings. Cardiac Tech: PSCB Transcribe Date/Time: Jan 17 2025 8:44P [...] Complete 01/17/252028 (more content not included)... Normal [facility] Magnesium SerPl-mCncon 01-17 Magnesium [Mass/Vol] 2.0 mg/dL Normal 1.6-2.6 [facility] Comment on above: Order Comment: Speci men Type: BLOOD SPECIMENOrdering Facility: [facility] Address: [address] [place] [address] Performed By: #### 2 4323-8, 37334-6 ####[facility] [id number] [place] [address] [place] TOXICOLOGY SCREEN, ROUTINE U RINEon 01-17-2025 Amphetamines Confirm (U) [Mass/Vol] Negative Normal Negative [facility] Comment on above: Order Comment: Speci men Type: URINE SPECIMENOrdering Facility: [facility] Address: [address] [place] [address] Result Comment: Cuto ff threshold at 1000 ng/mL. Performed By: #### U TOX2 ####[facility] [id number] [place] [address] [place] BARBITURATES, URINE Negative Normal Negative [facility] Comment on above: Order Comment: Speci men Type: URINE SPECIMENOrdering Facility: [facility] Address: [address] [place] [address] Result Comment: Cuto ff threshold at 200 ng/mL. Performed By: #### U TOX2 ####[facility] [id number] [place] [address] [place] BENZODIAZEPINES, UR Negative Normal Negative [facility] Comment on above: Order Comment: Speci men Type: URINE SPECIMENOrdering Facility: [facility] Address: [address] [place] [address] Result Comment: Cuto ff threshold at 200 ng/mL. Performed By: #### U TOX2 ####[facility] [id number] [place] [address] [place] Cannabinoids Screen Ql (U) Negative Normal Negative [facility] Comment on above: Order Comment: Speci men Type: URINE SPECIMENOrdering Facility: [facility] Address: [address] [place] [address] Result Comment: Cuto ff threshold at 50 ng/mL. Performed By: #### U TOX2 ####[facility]IA [id number] [place] [address] [place] Cocaine Ql (U) Negative Normal Negative [facility] Comment on above: Order Comment: Speci men Type: URINE SPECIMENOrdering Facility: [facility] Address: [address] [place] [address] Result Comment: Cuto ff threshold at 300 ng/mL. Performed By: #### U TOX2 ####[facility] [id number] [place] [address] [place] Opiates Screen Ql (U) Negative Normal Negative [facility] Comment on above: Order Comment: Speci men Type: URINE SPECIMENOrdering Facility: [facility] Address: [address] [place] [address] Result Comment: Cuto ff threshold at 300 ng/mL. Performed By: #### U TOX2 ####[facility]IA [id number] [address] Phencyclidine Ql (U) Negative Normal Negative [facility] Comment on above: Order Comment: Speci men Type: URINE SPECIMENOrdering Facility: [facility] Address: [address] [place] [address] Result Comment: Cuto ff threshold at 25 ng/mL. Performed By: #### U TOX2 ####[facility]IA [id number] [address] Urinalysis complete panel (U )on 01-17-2025 Bacteria LM.HPF (Urine sed) [#/Area] None Seen Normal None Seen [facility] Comment on above: Order Comment: Speci men Type: URINE SPECIMENOrdering Facility: [facility] Address: [address] [place] [address] Performed By: #### 2 4356-8 ####[facility]ORY[facility]IA [id number] [address] OF [facility] Bilirubin Ql (U) Negative Normal Negative [facility] Comment on above: Order Comment: Speci men Type: URINE SPECIMENOrdering Facility: [facility] Address: [address] [place] [address] Performed By: #### 2 4356-8 ####[facility]ORY[facility]IA [id number] [address] [place] Clarity (Unsp spec) Clear Normal Clear [facility] Comment on above: Order Comment: Speci men Type: URINE SPECIMENOrdering Facility: [facility] Address: [address] [place] [address] Performed By: #### 2 4356-8 ####[facility]ORY[facility]IA [id number] [address] [place] Color (U) Yellow Normal Yellow [facility] Comment on above: Order Comment: Speci men Type: URINE SPECIMENOrdering Facility: [facility] Address: [address] [place] [address] Performed By: #### 2 4356-8 ####[facility]ORYCLIA [id number] [address] Epithelial cells LM.HPF (Urine sed) [#/Area] None Seen Normal [facility] Comment on above: Order Comment: Speci men Type: URINE SPECIMENOrdering Facility: [facility] Address: [address] [place] [address] Performed By: #### 2 4356-8 ####[facility]ORYCLIA [id number] [address] Glucose Test strip (U) [Mass/Vol] Negative Normal Negative [facility] Comment on above: Order Comment: Speci men Type: URINE SPECIMENOrdering Facility: [facility] Address: [address] [place] [address] Performed By: #### 2 4356-8 ####[facility]ORYCLIA [id number] [address] Hemoglobin Ql (U) Negative Normal Negative [facility] Comment on above: Order Comment: Speci men Type: URINE SPECIMENOrdering Facility: [facility] Address: [address] [place] [address] Performed By: #### 2 4356-8 ####[facility]ORYCLIA [id number] [address] [place] Hyaline casts (Urine sed) [#/Area] 4-10 /LPF Abnormal 0 /LPF [facility] Comment on above: Order Comment: Speci men Type: URINE SPECIMENOrdering Facility: [facility] Address: [address] [place] [address] Performed By: #### 2 4356-8 ####[facility]ORYCLIA [id number] [address] [place] Ketones Ql (U) Negative Normal Negative [facility] Comment on above: Order Comment: Speci men Type: URINE SPECIMENOrdering Facility: [facility] Address: [address] [place] [address] Performed By: #### 2 4356-8 ####[facility]ORYCLIA [id number] [address] Leukocyte esterase Test strip Ql (U) Negative Normal Negative [facility] Comment on above: Order Comment: Speci men Type: URINE SPECIMENOrdering Facility: [facility] Address: [address] [place] [address] Performed By: #### 2 4356-8 ####[facility]ORYCLIA [id number] [address] Nitrite Ql (U) Negative Normal Negative [facility] Comment on above: Order Comment: Speci men Type: URINE SPECIMENOrdering Facility: [facility] Address: [address] [place] [address] Performed By: #### 2 4356-8 ####[facility]ORYCLIA [id number] [address] [place] pH (U) 6.0 [pH] Normal 5.0-8.0 [facility] Comment on above: Order Comment: Speci men Type: URINE SPECIMENOrdering Facility: [facility] Address: [address] [place] [address] Performed By: #### 2 4356-8 ####[facility]ORYCLIA [id number] [address] [place] Protein (U) [Mass/Vol] 2+ Abnormal Negative [facility] Comment on above: Order Comment: Speci men Type: URINE SPECIMENOrdering Facility: [facility] Address: [address] [place] [address] Performed By: #### 2 4356-8 ####[facility]ORYCLIA [id number] [address] [place] RBC LM.HPF (Urine sed) [#/Area] 0-3 /HPF Normal 0-3 /HPF [facility] Comment on above: Order Comment: Speci men Type: URINE SPECIMENOrdering Facility: [facility] Address: [address] [place] [address] Performed By: #### 2 4356-8 ####[facility]ORATORYCLIA [id number] [place] [id number] [facility] Specific gravity (U) [Rel density] 1.021 Normal 1.005-1.030 [facility] Comment on above: Order Comment: Speci men Type: URINE SPECIMENOrdering Facility: [facility] Address: [address] [place] [address] Performed By: #### 2 4356-8 ####[facility]ORATORYCLIA [id number] [place] [id number] [facility] [place] Urobilinogen Ql (U) Negative Normal Negative [facility] Comment on above: Order Comment: Speci men Type: URINE SPECIMENOrdering Facility: [facility] Address: [address] [place] [address] Performed By: #### 2 4356-8 ####[facility]ATORYCLIA [id number] [address] [place] WBC LM.HPF (Urine sed) [#/Area] 0-5 /HPF Normal 0-5 /HPF [facility] Comment on above: Order Comment: Speci men Type: URINE SPECIMENOrdering Facility: [facility] Address: [address] [place] [address] Performed By: #### 2 4356-8 ####[facility] LABORATORYCLIA [id number] [place] [id number] [place] XR CHEST 2V FRONTAL/LATon [...] or pneumothorax. IMPRESSION: No acute cardiopulmonary findings. Cardiac Tech: PSCCriss Transcribe Date/Time: Jan 17 2025 8:44P Dictated by : PRISCILA DIAS MD This examination was interpreted and the report reviewed and electronically signed by: PRISCILA DIAS MD on Jan 17 2025 8:44PM EST [id number] CN Normal [facility] levETIRAcetam SerPl-mCncon 0 01-17-2025 levETIRAcetam [Mass/Vol] 3.3 ug/mL Low 12.0-46.0 [facility] Comment on above: Order Comment: Speci men Type: BLOOD SPECIMENOrdering Facility: [facility] Address: [facility] [place] [address] Result Comment: This test is not suitable [...] and its performance characteristics determined by the [facility] Department of Pathology and Laboratory Medicine. It has not been cleared or approved by the FDA. The [facility] Department of Pathology and Laboratory Medicine is regulated under CLIA as qualified to perform high-complexity testing. This test is used for clinical purposes. It should not be regarded as investigational or for research. Performed By: #### 3 0471-7 ####[facility] LABCLIA [id number] [place] [address] [place] CNCOon 12-17-2024 CNCO Letter Text Normal [facility] XR SHOULDER MINIMUM 2 VIEWS [...] Report By: You Mills Electronically signed By Americo Darnell DO Dictated Date: 12/14/2024 8:38:47 AM Prelim Date: 12/14/2024 10:34:16 AM Sign Date: 12/14/2024 10:34:16 AM Ordering Provider: WINNIE REFERRING [facility] CNCOon 12-01-2024 CNCO Letter Text [facility] CNOVon 11-30-2024 CNOV Office Visit (FAMAAR) EVIN OVIEDO ([id number]) 1985 M Date Time Provider Department 11/30/24 [...] Obesity, Class III, BMI 40-49.9 (morbid obesity) ([facility]) (E66.01) - BMI 41. - Discussed importance [...] Counseling 15 min . 2. Seizure disorder ([facility]) (G40.909) - Experiencing breakthrough seizures lasting approximately 5 minutes with postictal phase of about 20 minutes. - Currently on Keppra 750 mg BID; increased dosage to 1000 mg BID. - Referred to [facility] [place] for further evaluation and management. - Previous EEG performed; no MRI conducted. - Prescription sent to [facility] pharmacy. 3. Essential hypertension (I10) - Managed with metoprolol 50 mg BID and hydrochlorothiazide. - Refilled prescriptions for metoprolol and hydrochlorothiazide. - Recent blood work in July; ordered fasting blood work to be done one week prior to next appointment. - Follow-up in 4 months. 4. Cigarette smoker (more content not included)... Normal [facility] .Auto Diffon 08-18-2024 Basophil, Absolute 0.0 10 3/mcL Normal 0.0-0.3 LISS DALLAS CHIKI Comment on above: Performed By: #### A FARZAD, BMP, ADIFF, GFR, MG, W, CBC #### Doreen Haynes [address] [place], [place] [address] Basophils/100 WBC (Bld) 0.3 % Normal 0.0-2.5 A ULSCHUYLER HAYNES Comment on above: Performed By: #### A FARZAD, BMP, ADIFF, GFR, MG, MDW, CBC #### Doreen [place] [place], [place] [address] Eosinophil, Absolute 0.1 10 3/mcL Normal 0.0-0.7 AU LTMAN MASSILLON Comment on above: Performed By: #### A FARZAD, BMP, ADIFF, GFR, MG, MDW, CBC #### Doreen [address] [place], [place] [address] Eosinophils/100 WBC (Bld) 0.6 % Normal 0.0-6.0 DOREEN MASSILLON Comment on above: Performed By: #### A FARZAD, BMP, ADIFF, GFR, MG, MDW, CBC #### Doreen [address] [place], [place] [address] Lymphocyte, Absolute 1.5 10 3/mcL Normal 0.9-4.3 AU LTMAN MASSILLON Comment on above: Performed By: #### A FARZAD, BMP, ADIFF, GFR, MG, MDW, CBC #### Doreen [place] [place], [place] [address] Lymphocytes/100 WBC (Bld) 9.7 % Low 20.0-40.0 DOREEN MASSILLON Comment on above: Performed By: #### A FARZAD, BMP, ADIFF, GFR, MG, MDW, CBC #### Doreen [address] [place], [place] [address] Monocyte, Absolute 1.2 10 3/mcL Normal 0.1-1.4 LISS MAN MASSILLON Comment on above: Performed By: #### A FARZAD, BMP, ADIFF, GFR, MG, MDW, CBC #### Doreen [address] [place], [place] [address] Monocytes/100 WBC (Bld) 7.6 % Normal 2.0-13.0 A ULTMAN MASSILLON Comment on above: Performed By: #### A FARZAD, BMP, ADIFF, GFR, MG, MDW, CBC #### Doreen [address] [place], [place] [address] Neutrophils/100 WBC (Bld) 81.8 % High 50.0-75.0 DOREEN MASSILLON Comment on above: Performed By: #### A FARZAD, BMP, ADIFF, GFR, MG, MDW, CBC #### Doreen [address] [place], [place] [address] .GFRon 08-18-2024 GFR Non- 74 ml/min/1.73sqm Normal [...] ADIFF, GFR, MG, MDW, CBC #### Doreen Horntown [address] [place], [place] [address] GFR 90 ml/min/1.73sqm Normal DOREEN MASSILLON Comment [...] ADIFF, GFR, MG, MDW, CBC #### Doreen [address] [place], [place] [address] .MDWon 08-18-2024 Monocyte Distribution Width 15.16 Normal 0.00-20.00 DOREEN MASSILLON Comment on above: Result Comment: For ED adult patients suspected of sepsis, MDW<=20.0 does not rule out sepsis or risk of sepsis Performed By: #### A FARZAD, BMP, ADIFF, GFR, MG, MDW, CBC #### Doreen [address] [place], [place] [address] .NEUABSon 08-18-2024 Neutrophil, Absolute 12.5 10 3/mcL High 2.3-8.1 A ULTMAN MASSILLON Comment on above: Performed By: #### A FARZAD, BMP, ADIFF, GFR, MG, MDW, CBC #### Doreen [place] [place], [place] [address] BMPon 08-18-2024 BUN/Creatinine Ratio 11 ratio Normal 7-27 LISS MAN MASSILLO Comment on above: Performed By: #### A FARZAD, BMP, ADIFF, GFR, MG, MDW, CBC #### Doreen [address] [place], [place] [address] Calcium [Mass/Vol] 9.2 mg/dL Normal 8.4-10.2 AULTMA N MASSILLON Comment on above: Performed By: #### A FARZAD, BMP, ADIFF, GFR, MG, MDW, CBC #### Doreen [address] [place], [place] [address] Chloride [Moles/Vol] 103 mmol/L Normal 98-107 LISS MAN MASSILLON Comment on above: Performed By: #### A FARZAD, BMP, ADIFF, GFR, MG, MDW, CBC #### Doreen [address] [place], [place] [address] CO2 [Moles/Vol] 29 mmol/L Normal 22-29 DOREEN MASSILLON Comment on above: Performed By: #### A FARZAD, BMP, ADIFF, GFR, MG, MDW, CBC #### Doreen [address] [place], [place] [address] Creatinine [Mass/Vol] 1.11 mg/dL Normal 0.70-1.30 AUL TMAN MASSILLON Comment on above: Result Comment: Test ing performed on Siemens Dimension EXL analyzer using a modified kinetic Isis technique. Performed By: #### A FARZAD, BMP, ADIFF, GFR, MG, MDW, CBC #### Doreen Horntown [address] [place], [place] [address] Electrolyte Balance 10.0 mEq/L Normal 4.0-15.0 AULTM AN MASSILLON Comment on above: Performed By: #### A FARZAD, BMP, ADIFF, GFR, MG, MDW, CBC #### Doreen [address] [place], [place] [address] Glucose [Mass/Vol] 121 mg/dL High 70-105 AULTMA N MASSILLON Comment on above: Performed By: #### A FARZAD, BMP, ADIFF, GFR, MG, MDW, CBC #### Doreen [address] [place], [place] [address] Potassium [Moles/Vol] 4.0 mmol/L Normal 3.5-5.1 AUL TMAN MASSILLON Comment on above: Performed By: #### A FARZAD, BMP, ADIFF, GFR, MG, MDW, CBC #### Doreen Horn[address] [place], [place] [address] Sodium [Moles/Vol] 142 mmol/L Normal 136-145 AULTMA N MASSILLON Comment on above: Performed By: #### A FARZAD, BMP, ADIFF, GFR, MG, MDW, CBC #### Doreen [address] [place], [place] [address] Urea nitrogen [Mass/Vol] 12 mg/dL Normal 7-18 DOREEN MASSILLON Comment on above: Performed By: #### A FARZAD, BMP, ADIFF, GFR, MG, MDW, CBC #### Doreen Horn[address] [place], [place] [address] CBCon 08-18-2024 Erythrocyte distribution width (RBC) [Ratio] 14.4 % Normal 11.5-15.5 DOREEN MASSILLO Comment on above: Performed By: #### A FARZAD, BMP, ADIFF, GFR, MG, MDW, CBC #### Doreen [address] [place], [place] [address] Hematocrit (Bld) [Volume fraction] 44.3 % Normal 40.0-52.0 [facility] Comment on above: Performed By: #### A FARZAD, BMP, ADIFF, GFR, MG, MDW, CBC #### Doreenleroy [address] [place], [place] [address] Hgb 14.6 G/dL Normal 13.0-17.5 [facility] Comment on above: Performed By: #### A FARZAD, BMP, ADIFF, GFR, MG, MDW, CBC #### [facility] [address] [place], [place] [address] MCH (RBC) [Entitic mass] 28.2 pg Normal 27.0-33.0 [facility] Comment on above: Performed By: #### A FARZAD, BMP, ADIFF, GFR, MG, MDW, CBC #### [facility] [address] [place], [place] [address] MCHC 32.8 G/dL Normal 32.0-36.0 [facility] Comment on above: Performed By: #### A FARZAD, BMP, ADIFF, GFR, MG, MDW, CBC #### [facility] [address] [place], [place] [address] MCV (RBC) [Entitic vol] 86.0 fL Normal 81.0-100.0 A [facility] Comment on above: Performed By: #### A FARZAD, BMP, ADIFF, GFR, MG, MDW, CBC #### [facility] [address] [place] [id number] Platelet 287 10 3/mcL Normal 150-450 [facility] Comment on above: Performed By: #### A FARZAD, BMP, ADIFF, GFR, MG, MDW, CBC #### [facility] [address] [place], [place] [address] Platelet mean volume (Bld) [Entitic vol] 8.6 fL Normal 6.4-10.5 [facility] Comment on above: Performed By: #### A FARZAD, BMP, ADIFF, GFR, MG, MDW, CBC #### Doreen [address] [place], [place] [address] RBC 5.16 10 6/mcL Normal 4.50-6.00 DOREENNGOZI SALEEMN Comment on above: Performed By: #### A FARZAD, BMP, ADIFF, GFR, MG, MDW, CBC #### Doreen [address] [place], [place] [address] WBC 15.3 10 3/mcL High 4.5-10.8 DOREENNGOZI SALEEMN Comment on above: Performed By: #### A FARZAD, BMP, ADIFF, GFR, MG, MDW, CBC #### Doreen Horntown [address] [place], [place] [address] CT HEAD OR BRAIN W/O CONTRAS Ton [...] MG, MDW, CBC #### Doreen Haynes [address] [place], [place] [address] [facility] 04-13-2024 CNPN Telephone (CARMOB) EVIN OVIEDO ([id number]) 1985 M Date Time Provider Department 04/13/24 PAT PEGUERO During your visit today, we recorded the following information about you: Clarisse Freeman 04/13/2024 4:04 PM Signed Received a referral from [facility]. Patient is referred for uncontrolled hypertension and hypertensive urgency. Scanned referral into chart for review. Please call patient to schedule at [phone]. Joana Sanders 04/14/2024 9:39 AM Signed Scheduled [...] Status:Closed by JOANA SANDERS on 04/14/24 Normal [facility] ECHOon 04-02-2024 Echocardiography Echocardiography Report: Transthoracic Echo [facility] Date of service: 04/02/2024 9:29:34 AM Indication: Hypertensive heart disease Technologist: Joana Cee [facility] Interpreting physician: Benjamin Jennings MD PATIENT: Name: [...] * * Final * * * CC [employer] [facility] : [id number] Normal [facility] EKGon 04-02-2024 Atrial Rate 54 BPM [facility] Calculated P [place] 62 degrees [facility] Calculated R [place] 46 degrees [facility] Calculated T [place] 53 degrees [facility] P-R Interval 190 ms [facility] QRS Duration 94 ms [facility] QT Interval 396 ms [facility] QTC Calculation (Bazett) 375 ms [facility] Ventricular Rate 54 BPM [facility] Sinus bradycardia Otherwise normal ECG When compared with ECG of 21-Aug-2023 20:21, Questionable change in QRS axis Nonspecific T wave abnormality no longer evident in Inferior leads Confirmed by TOBY KAN MD ([id number]) on 04/02/2024 1:11:44 PM [facility] NAME : EVIN OVIEDO PID : [id number] : 1985 Gender : Male Race : ORD : Procedure Date : Apr 02 2024 09:25:40 Edit Date : Apr 02 2024 13:11:47 Diagnosis: Sinus bradycardia Otherwise normal ECG When compared with ECG of 21-Aug-2023 20:21, Questionable change in QRS axis Nonspecific T wave abnormality no longer evident in Inferior leads Confirmed by TOBY KAN MD ([id number]) on 04/02/2024 1:11:44 PM Test Reason : RT Location : 18 : L OP Overread By : TOBY KAN MD Edited By : TOBY KAN MD Referred By : LEIDA VO Acquired by : MAGGY ALVARADO [facility] Electrocardiogram Ventricular Rate : 54 BPM Atrial Rate : 54 BPM P-R Interval : 190 ms QRS Duration : 94 ms Q-T Interval : 396 ms QTC Calculation(Bazett) : 375 ms Calculated P [place] : 62 degrees Calculated R [place] : 46 degrees Calculated T [place] : 53 degrees Sinus bradycardia Otherwise normal ECG When compared with ECG of 21-Aug-2023 20:21, Questionable change in QRS axis Nonspecific T wave abnormality no longer evident in Inferior leads Confirmed by TOBY KAN MD ([id number]) on 04/02/2024 1:11:44 PM NAME : EVIN OVIEDO PID : [id number] : 1985 Gender : Male Race : ORD : Procedure Date : Apr 02 2024 09:25:40 Edit Date : Apr 02 2024 13:11:47 Diagnosis: Sinus bradycardia Otherwise normal ECG When compared with ECG of 21-Aug-2023 20:21, Questionable change in QRS axis Nonspecific T wave abnormality no longer evident in Inferior leads Confirmed by TOBY KAN MD ([id number]) on 04/02/2024 1:11:44 PM Test Reason : RT Location : 18 : CDL OP Overread By : TOBY KAN MD Edited By : TOBY KAN MD Referred By : LEIDA VO Acquired by : MAGGY ALVARADO [facility] CBC (POC)on 02-04-2022 Perf Loc - POCT Tested at AM Normal [facility]) Comment on above: Result Comment: [facility] [address] [place], [place] [address] Basophil, Absolute (POC) 0.05 10 3/mcL Normal 0.00-0.2 7 [facility]) Basophils/100 WBC (Bld) 0.4 % Normal 0.0-2.5 A [facility] ([place]) Eosinophil, Absolute (POC) 0.13 10 3/mcL Normal 0.00-0.65 [facility] ([place]) Eosinophils/100 WBC (Bld) 1.1 % Normal 0.0-6.0 [facility] ([place]) Erythrocyte distribution width (RBC) [Ratio] 13.1 % Normal 11.5-15.5 [facility] ([place]) Hematocrit (Bld) [Volume fraction] 41.7 % Normal 40.0-52.0 [facility]) Hemoglobin (POC) 14.1 G/dL Normal 13.0-17.5 [facility] ([place]) Imm Granulocyte, Absolute (POC) 0.05 10 3/mcL Normal [facility] ([place]) Immature granulocytes/100 WBC (Bld) 0.4 % Normal [facility] ([place]) Lymphocyte, Absolute (POC) 3.15 10 3/mcL Normal 0.90-4.32 [facility]) Lymphocytes/100 WBC (Bld) 25.8 % Normal 20.0-40.0 [facility]) MCH (RBC) [Entitic mass] 28.3 pg Normal 27.0-33.0 [facility]) MCHC (POC) 33.8 G/dL Normal 32.0-36.0 [facility]) MCV (RBC) [Entitic vol] 83.7 fL Normal 81.0-100.0 A [facility]) Monocyte, Absolute (POC) 1.15 10 3/mcL Normal 0.09-1.4 0 [facility]) Monocytes/100 WBC (Bld) 9.4 % Normal 2.0-13.0 A [facility]) Neutrophil, Absolute (POC) 7.69 10 3/mcL Normal 2.25-8.10 [facility]) Neutrophils/100 WBC (Bld) 62.9 % Normal 50.0-75.0 [facility]) Performing Instrument - POCT SYSMEX Normal [facility]) Platelet (POC) 358 10 3/mcL Normal 150-450 [facility]) Platelet mean volume (Bld) [Entitic vol] 10.6 fL High 6.4-10.5 [facility] ([place]) RBC (POC) 4.98 10 6/mcL Normal 4.50-6.00 [facility] ([place]) WBC (POC) 12.22 10 3/mcL High 4.50-10.80 [facility] ([place]) CT HEAD OR BRAIN W/O CONTRAS Ton [...] 6:06:46 AM Ordering Provider: ANA COFFMAN Normal [facility]) RENAL12 (POC)on 02-04-2022 Perf Loc - POCT Tested at AM Normal [facility]) Comment on above: Result Comment: [facility] [address] [place], [place] [address] Albumin Level (POC) 3.6 G/dL Normal 3.2-4.8 [facility] ([place]) Calcium [Mass/Vol] 9.5 mg/dL Normal 8.4-10.1 [facility] ([place]) Chloride [Moles/Vol] 104 mmol/L Normal 98-110 [facility]) CO2 [Moles/Vol] 22 mmol/L Normal 22-32 [facility] ([place]) Creatinine [Mass/Vol] 0.90 mg/dL Normal 0.60-1.40 [facility] ([place]) Est GFR (POC) >60 Normal [facility] ([place]) Comment on above: Result Comment: Chronic Kidney Disease: Less than 60 mL/min/1.73 square meters End Stage Renal Disease: Less than 15 mL/min/1.73 square meters Est GFR Non- (POC) >60 Normal [facility] ([place]) Comment on above: Result Comment: Chronic Kidney Disease: Less than 60 mL/min/1.73 square meters End Stage Renal Disease: Less than 15 mL/min/1.73 square meters Glucose [Mass/Vol] 144 mg/dL High 70-110 [facility] ([place]) Lactate [Moles/Vol] 7.6 mmol/L High 0.2-2.0 [facility] ([place]) Magnesium [Mass/Vol] 1.8 mg/dL Normal 1.6-2.4 [facility]) Performing Instrument - POCT CONY Normal [facility]) Phosphorus Level (POC) 2.6 mg/dL Normal 2.5-4.5 [facility] ([place]) Potassium [Moles/Vol] 4.7 mmol/L Normal 3.5-5.0 [facility] ([place]) Sodium [Moles/Vol] 140 mmol/L Normal 136-145 [facility] ([place]) Urea nitrogen [Mass/Vol] 8.0 mg/dL Normal 8.0-22.0 [facility]) TROP (POC)on 02-04-2022 Perf Loc - POCT Tested at AM Normal [facility] ([place]) Comment on above: Result Comment: [facility] [address] [place], [place] [address] Performing Instrument - POCT TRIAGE1 Normal [facility] ([place]) Troponin I.cardiac [Mass/Vol] ng/mL Normal <=0.05 [facility] ([place]) Comment on above: Result Comment: Trop onin I reference ranges: <0.05 ng/mL Negative and non-diagnostic. >=0.05 ng/mL Consistent with cardiac damage, increased clinical risk and possibility of myocardial infarction. Serial measurements, a rise & fall in test results, clinical history, appropriate symptoms and/or ECG changes may help assess possibility of AR. *Other non-acute coronary syndrome conditions such as CHF, myocarditis, pulmonary emboli, sepsis and cardiac surgery could result in myocardial damage and increased troponin levels. Mandie 09-10-2021 EMERGENCY PHYSICIAN REPORT This is a preliminary report only, as the practitioner review and authentication has not occurred. [facility] ER PHYSICIAN ASSESSMENT RECORDS : FlexChartData Event Time: 09/10/2021 05:20 CMCA Status: Signed [facility] Evin Oviedo [[id number]] Mid-Level Chart (V2b) 36 / M / 1985 Chart created at 09/10/2021 05:16 by Jyotsna Dickson Chart closed at 09/10/2021 05:39 Entry in Emergency Department at 09/10/2021 01:24, departure at 09/10/2021 06:32 Patient Name: Evin Oviedo Record Number: [id number] Date: 09/10/2021 05:16 Entered Department at: 09/10/2021 [...] is concerned that it might be infected. [facility] PATIENT NAME: SHELDON OVIEDONGELO P [address] [place] MEDICAL REC #: [id number] [place] [id number] EMERGENCY DEPARTMENT REPORT EMERGENCY DEPARTMENT PHYSICIAN He [...] other complaints or concerns. Vitals were all [facility] PATIENT NAME: EVIN OVIEDO [address] [place] MEDICAL REC #: [id number] [place] [address] EMERGENCY DEPARTMENT REPORT EMERGENCY DEPARTMENT PHYSICIAN within [...] FlexChartData Event Time: 09/10/2021 06:16 Status: Signed [facility] (more content not included)... Normal [facility] Vital Signs Date Time Vital Sign Value Performing Clinician Facility 02-25-2025 11:02-0400 Body height 179.[address] Benito Palmer MD Work Phone: [facility] 02-25-2025 11:02-0400 Body mass index (BMI) [Ratio] 40.4 kg/m2 Dr. Benito Palmer MD Work Phone: [facility] 02-25-2025 11:02-0400 Body temperature 98 [degF] Dr. Benito Palmer MD Work Phone: [facility] 02-25-2025 11:02-0400 Body weight 129.[address] Benito Palmer MD Work Phone: [facility] 02-25-2025 11:02-0400 Diastolic blood pressure 90 mm[Hg] Dr. Benito Palmer MD Work Phone: [facility] 02-25-2025 11:02-0400 Heart rate 65 /min Dr. Benito Palmer MD Work Phone: [facility] 02-25-2025 11:02-0400 Respiratory rate 16 /min Dr. Benito Palmer MD Work Phone: [facility] 02-25-2025 11:02-0400 SaO2% (BldA) [Mass fraction] 99 % Dr. Benito Palmer MD Work Phone: [facility] 02-25-2025 11:02-0400 Systolic blood pressure 143 mm[Hg] Dr. Benito Palmer MD Work Phone: [facility] 11-30-2024 14:31-0400 Body height 175.3 cm Michael Alvarado MD Work Phone: [facility] 11-30-2024 14:31-0400 Body mass index (BMI) [Ratio] 41.53 kg/m2 Michael Alvarado MD Work Phone: [facility] 11-30-2024 14:31-0400 Body weight 127.55 kg Michael Alvarado MD Work Phone: [facility] 11-30-2024 14:31-0400 Diastolic blood pressure 89 mm[Hg] Michael Alvarado MD Work Phone: [facility] 11-30-2024 14:31-0400 Heart rate 59 /min Michael Alvarado MD Work Phone: [facility] 11-30-2024 14:31-0400 SaO2% (BldA) [Mass fraction] 98 % Michael Alvarado MD Work Phone: [facility] 11-30-2024 14:31-0400 Systolic blood pressure 128 mm[Hg] Michael Alvarado MD Work Phone: [facility] 02-13-2022 08:36-0400 Body height 175.3 cm Michael Alvarado MD Work Phone: [facility] 02-13-2022 08:36-0400 Body temperature 97.39 [degF] Michael Alvarado MD Work Phone: [facility] 02-13-2022 08:36-0400 Body weight 121.2 kg Michael Alvarado MD Work Phone: [facility] 02-13-2022 08:36-0400 Diastolic blood pressure 86 mm[Hg] Michael Alvarado MD Work Phone: [facility] 02-13-2022 08:36-0400 Heart rate 69 /min Michael Alvarado MD Work Phone: [facility] 02-13-2022 08:36-0400 SaO2% (BldA) [Mass fraction] 97 % Michael Alvarado MD Work Phone: [facility] 02-13-2022 08:36-0400 Systolic blood pressure 128 mm[Hg] Michael Alvarado MD Work Phone: [facility] Encounters Encounter Date Encounter Type Care Provider Facility Start: 04-05-2025 ambulatory Benito Palmer [facility] y:[facility] Start: 03-22-2025 End: 03-22-[address] Benito Palmer MD Work Phone: -Pulmonary Services/Neurology Start: 03-22-2025 End: 03-22-[address] Benito Palmer MD -Pulmonary Services/Neurology Work Phone: Start: 03-22-2025 End: 03-22-2025 ambulatory RAJANI PINK Facility:[facility] Start: 02-25-2025 End: 02-25-[address] Benito Palmer MD [facility] Work Phone: Start: 02-25-2025 End: 02-25-2025 ambulatory Benito Palmer [facility] Start: 02-03-2025 End: 02-03-2025 ambulatory Michael Alvarado MD Work Phone: [facility] Start: 02-03-2025 End: 02-03-2025 Patient encounter procedure Michael Alvarado MD Work Phone: [facility] Comment on above: Neurologist Care Start: 01-27-2025 End: 01-27-2025 Transcribe Orders Juliette Gardiner PA-C Work Phone: [facility] Physician Referral Service Start: 01-19-2025 End: 01-19-2025 [facility] Start: 01-19-2025 End: 01-19-2025 Follow-up encounter Cristiana Baldwin RN [facility] are Comment on above: Primary Care Coordin ator Ed Follow Up Start: 01-17-2025 End: 01-17-2025 Emergency department patient visit MICHAEL ALVARADO Facility:[id number] Start: 12-12-2024 End: 12-12-2024 ambulatory PHY WO ID REFERRING Facility:A Start: 12-10-2024 End: 12-10-2024 Patient encounter procedure Michael Alvarado MD Work Phone: [facility] Comment on above: Neuro Care Referral Start: 12-10-2024 End: 12-10-2024 ambulatory Michael Alvarado MD Work Phone: [facility] Start: 11-30-2024 End: 11-30-2024 Patient encounter procedure Michael Alvarado MD Work Phone: [facility] Comment on above: Obesity, Class III, BMI >= 40 (Primary Dx); Seizure disorder (HCC); Essential hypertension; Cigarette smoker; Tendinitis of left rotator cuff Start: 11-30-2024 End: 11-30-2024 ambulatory MICHAEL ALVARADO Facility:[id number] Start: 09-04-2024 End: 09-04-2024 ambulatory RAMA BARBAT Not Available Start: 09-04-2024 End: 09-04-2024 Telephone encounter Rama Barbat MECHANICAL OPERATOR Work Phone: [facility] Start: 09-04-2024 End: 09-04-2024 Office outpatient visit 15 minutes Rama S Sahilandt MECHANICAL OPERATOR Work Phone: [facility] Comment on above: Partial symptomatic epilepsy with complex partial seizures, not intractable, without status epilepticus (CMS/HCC) (Primary Dx) Start: 08-18-2024 End: 08-18-2024 Emergency department patient visit DR LEIDA VO MD Facility:A Start: 07-11-2024 End: 07-11-2024 ambulatory ZEKE GONSALES Not Available Start: 05-28-2024 End: 05-28-2024 Bamboo flowsheet Rama S Sahilandt MECHANICAL OPERATOR Work Phone: [facility] Start: 05-28-2024 End: 05-28-2024 Bamboo flowsheet Rama S Sahilandt MECHANICAL OPERATOR Work Phone: [facility] Start: 05-28-2024 End: 05-28-2024 Office outpatient visit 25 minutes Rama S Sahilandt MECHANICAL OPERATOR Work Phone: [facility] Comment on above: Partial symptomatic epilepsy with complex partial seizures, not intractable, without status epilepticus (CMS/HCC) Start: 05-28-2024 End: 05-28-2024 ambulatory RAMA BARBAT Not Available Start: 04-13-2024 End: 04-14-2024 Telephone encounter Pat Peguero MD Work Phone: [facility] Comment on above: Appointment Start: 04-02-2024 ambulatory LEIDA Elkins y:[id number] Start: 04-02-2024 End: 04-02-2024 Subsequent hospital visit by physician Echo [facility] Work Phone: [facility] Comment on above: UNCONTROLLED HYPERTE NSION Start: 11-11-2023 End: 11-11-2023 ambulatory ZEKE GONSALES Not Available Start: 02-13-2022 End: 02-13-2022 Patient encounter procedure Michael Alvarado MD Work Phone: [facility] [place] Comment on above: Seizure disorder (HC C) (Primary Dx); Primary hypertension; Smoking; Obesity, Class II, BMI 35-39.9 Start: 02-08-2022 Chart abstracting Michael Saldana MD Work Phone: [facility] [place] Start: 09-10-2021 End: 09-10-2021 Subsequent hospital visit [...] 2) Shingles (RZV) Vaccine (1 of 2) [facility] Start: 11-05-2028 Lipid panel Lipid Screening [facility] Start: 11-30-2025 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 Visit Annual PCP Team Chronic Disease Visit [facility] Start: 04-26-2025 Influenza vaccination Influenz a Vaccine (Season Ended) [facility] Start: 04-07-2025 End: 04-07-2025 Patient encounter procedure 04/07/2025 9:00 AM EDT Office Visit [facility] [place] [address] [place] [address] Michael Alvarado MD [address] [place] [address] 4 month follow up [facility] [place] Comment on above: 4 month follow up Start: 12-22-2024 End: 12-22-2024 ambulatory 12/22/2024 1:45 PM EDT OT/PT/Speech Visit [facility] [address] [facility] [place] [address] Andreina Scanlon, PT, DPT [address] [place] [address] Tendinitis of left rotator cuff [M75.82] [facility] Comment on above: Tendinitis of left r otator cuff [M75.82] Start: 07-15-2024 End: 07-15-2024 Patient encounter procedure 07/15/2024 8:30 AM EST Office Visit [facility] [address] [place] [address] Darren Stewart MD [address], [address] [place] [address] New patient [facility] Comment on above: New patient Start: 05-28-2024 End: 05-28-2024 Patient encounter procedure 05/28/2024 10:30 AM EDT Office Visit [facility] [address] [place] [id number] Rama Liang, MECHANICAL OPERATOR [address] [place], [place] [id number] Arrived [facility] Comment on above: 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 DISEASE VISIT ANNUAL PCP TEAM CHRONIC DISEASE VISIT [facility] Start: 04-26-2022 Influenza vaccination INFLUENZ A (Season Ended) [facility] Start: 02-13-2022 End: 04-15-2022 CBC panel - Blood by Automated count CBC Lab Routine Primary hypertension Expected: 02/13/2022, Expires: 04/15/2022 [facility] Work Phone: Comment on above: Expected: 02/13/2022 , Expires: 04/15/2022 Start: 02-13-2022 End: 04-15-2022 Comprehensive metabolic 2000 panel - Serum or Plasma COMP METABOLIC PANEL Lab Routine Primary hypertension Expected: 02/13/2022, Expires: 04/15/2022 [facility] Work Phone: Comment on above: Expected: 02/13/2022 , Expires: 04/15/2022 Start: 02-13-2022 End: 04-15-2022 Lipid 1996 panel - Serum or Plasma LIPID PANEL BASIC Lab Routine Primary hypertension Expected: 02/13/2022, Expires: 04/15/2022 [facility] Work Phone: Comment on above: Expected: 02/13/2022 , Expires: 04/15/2022 Start: 02-13-2022 End: 04-15-2022 Thyrotropin [Units/volume] in Serum or Plasma TSH BLD Lab Routine Primary hypertension Expected: 02/13/2022, Expires: 04/15/2022 [facility] Work Phone: Comment on above: Expected: 02/13/2022 , Expires: 04/15/2022 Start: 2021 Lipid panel [facility] Start: 2021 LIPID SCREEN LIPID SCREEN [facility] Start: 2013 HPV Vaccine (optiona l start 27-45 years) HPV Vaccine (optional start 27-45 years) [facility] Start: 2005 Hepatitis A (HAV) Vaccine (optional start 19+ years) Hepatitis A (HAV) Vaccine (optional start 19+ years) [facility] Start: 2005 Hepatitis B vaccination Hepati tis B (HBV) Vaccine (1 of 3 - 19+ 3-dose series) [facility] Start: 2005 Hepatitis B Vaccine (1 of 3 - 19+ 3-dose series) Hepatitis B Vaccine (1 of 3 - 19+ 3-dose series) [facility] Start: 2005 Pneumococcal vaccination Pneum ococcal Vaccine (1 of 2 - PCV) [facility] Start: 2005 Tetanus vaccination Tetanus (T d or Tdap) Booster [facility] Start: 2005 Urine microalbumin profile [facility] Start: 2004 Anxiety Screening Anxiety Screening [facility] Start: 2004 BP CONTROLLED (<130/80) BP CON TROLLED (<130/80) [facility] Start: 2004 Depression Screening Depression Scre ening [facility] Start: 2004 HEPATITIS C SCREENING HEPATITIS C SC REENING [facility] Start: 2004 Hepatitis C screening C [facility] Start: 2004 HIV SCREENING HIV SCREENING [facility] Start: 2004 HIV screening HIV Screening [facility] Start: 2004 Tdap Booster Tdap Booster [facility] Start: 2001 HIV screening HIV Test [facility] Start: 1998 Adult depression screening assessment DEPRESSION SCREENING [facility] Start: 1992 PNEUMOCOCCAL (1 - PCV) PNEUMOCOCCAL (1 - PCV) [facility] Start: 1992 Pneumococcal vaccination Pneum ococcal Vaccine (1 of 2 - PCV) [facility] Start: 1991 COVID-19 VACCINE (#1) COVID-19 VACCI NE (#1) [facility] MR Brain WO and W contrast IV [facility] End: 12-30-2025 XR Shoulder - left 3 Views XR SHOULDER GENERAL 3V OR MORE AP/TRUE AP/OTHER LEFT Radiology Routine Tendinitis of left rotator cuff 1 Occurrences starting 11/30/2024 until 12/30/2025 [facility] Work Phone: Comment on above: 1 Occurrences starti ng 11/30/2024 until 12/30/2025 [facility] c Payers Date Payer Category Payer Self-pay 2024 Unknown [id number] 2024 Commercial Indemnity CELESTINA GERARD [employer] Member Subscriber Plan / Payer (Effective 2024-Present) Name: Evin Oviedo Relation to Subscriber: Self Name: Evin Oviedo Payer ID: [id number] (NAIC) Group ID: Not on file Type: Indemnity Address: [address] [address] [id number] 2023 Private Health Insurance [id number] 2023 Unknown [id number] 2023 Unknown [id number] 2021 Medicaid [employer] MEDICAID [id number] 2021-Present [phone] [place] [address] Medicaid [id number] 1986 Unknown [id number] [id number] 1986 Unknown [id number] [id number] 1986 Unknown [id number] [id number] 1986 Unknown [id number] [id number] 1986 Unknown [id number] 1986 Unknown [id number] [id number] Unknown [id number] Unknown [id number] Unknown [id number] [id number] Social History Date Type Detail Facility Tobacco smoking stat [facility] Tobacco smoking consumption unknown [facility] Start: 1985 Sex Assigned At Not on file C [facility] Start: 01-08-2022 End: 02-13-2022 Exposure to SARS-CoV-2 (event) Not sure [facility] Start: 08-26-2006 End: 11-30-2024 Tobacco smoking status NHIS Occasional tobacco smoker [facility] Start: 08-26-2006 History of tobacco use Smoker [facility] Start: 02-13-2022 End: 01-18-2025 Cigarettes smoked current (pack per day) - Reported 0.5 [facility] Start: 02-13-2022 End: 11-30-2024 Tobacco use and exposure Smokeless tobacco non-user [facility] Start: 02-13-2022 End: 01-17-2025 Alcohol intake Ex-drinker (finding) [facility] Start: 08-26-2006 History of tobacco use Cigarette Smo ker [facility] Start: 02-13-2022 End: 01-18-2025 Tobacco use panel [facility] National Score (1-100), lower number is lower risk 98 [facility] Start: 11-11-2023 [facility] Start: 11-11-2023 Alcoholic beverage intake Lifetime non-drinker (finding) [facility] Has the [employer], or [employer] threatened to shut off services in your home in past 12Mo No [facility] Are you now , , , , never or living with a partner? [facility] How often to you hav e a drink containing alcohol? Monthly or less [facility] How many standard drinks containing alcohol do you have on a typical day? 1 or 2 [facility] How often do you hav e 6 or more drinks on 1 occasion? Never [facility] Do you feel stress - tense, restless, nervous, or anxious, or unable to sleep at night because your mind is troubled all the time - these days [OSQ] To some extent [facility] (I/We) worried wheth er (my/our) food would run out before (I/we) got money to buy more. Never true [facility] Start: 01-27-2025 Sex Male (finding) [facility] Start: 1985 Sex Assigned At Male W [facility] Functional Status Date Assessment Result Facility 11-30-2024 Humiliation, Afraid, Rape, and Kick questionnaire [HARK] [facility] 11-30-2024 Total score [AUDIT-C] 1 12/01/19 2:32 PM EDT Javon Humphries [facility] Clinical Notes 02-13-2022 to 02-25-2025 Note Date & Type Note Facility 02-25-2025 Evaluation note Diagnosis Onset Date Resolution Epilepsy acute February 25, 2025 11:03am [facility] Work Phone: 1(623) [phone] Telephone encounter Note* Telephone Encounter - Michael [...] seven days of my reply. See the SiVerion message reply for my assessment and plan. I spent a total of 5 minutes reviewing the patient's prior medical records and current request for medical advice, prescribing medications or ordering tests (if applicable), replying to the patient, and documenting the encounter. [facility]2025 Miscellaneous Notes* Telephone Encounter - [...] seven days of my reply. See the [employer] message reply for my assessment and plan. I spent a total of 5 minutes reviewing the patient's prior medical records and current request for medical advice, prescribing medications or ordering tests (if applicable), replying to the patient, and documenting the encounter. documented in this encounterCh[facility]icothe [facility]05-27-2025 NoteHNO ID: [id number] Author: CRISTIANA BALDWIN RN Service: ? Author Type: Registered Nurse Type: Progress Notes Filed: 01/19/2025 09:36 Note Text: Summary: ED chart review [facility] Chart Review Provider Action/FYI Patient identified by name and date of :YES Patient identified for Care Coordination from: [facility] ED Discharge report Was patient contacted?: No: Does not meet HEDIS measure [facility] requirements, No outreach is necessary Patient discharged from [facility]25 ED Provider Discharge summary: Overall [...] Plan:Follow up call needed:No Cristiana Baldwin [facility]05-27-2025 History of Present illness Narrative* Cristiana Baldwin RN - 01/19/2025 9:35 AM EDTSummary: ED chart review [facility] Chart Review Provider Action/FYI Patient identified by name and date of :YES Patient identified for Care Coordination from: [facility] ED Discharge report Was patient contacted?: No: Does not meet HEDIS measure [facility] requirements, No outreach is necessary Patient discharged from [facility] on 01/17/25 ED Provider Discharge summary: Overall [...] needed:No Cristiana Baldwin RN documented in this encounterChillicothe [facility]05-27-2025 NotePatient Outreach (MRCAC) EVIN OVIEDO ([id number]) 1985 M Date Time Provider Department 01/19/25 CRISTIANA BALDWIN During your visit today, we recorded the following information about you: Cristiana Baldwin RN 01/19/2025 9:36 AM Signed [facility] Chart Review Provider Action/FYI Patient identified by name and date of :YES Patient identified for Care Coordination from: [facility] ED Discharge report Was patient contacted?: No: Does not meet HEDIS measure [facility] requirements, No outreach is necessary Patient discharged from [facility] on 01/17/25 ED Provider Discharge summary: Overall [...] PA-C - Fully Assessed Reason for Visit: Blow Down Operator Ed Follow Up [1388] Prescriptions as of 01/19/2025 - levETIRAcetam (KEPPRA) [...] 11/30/2024 Encounter Status:Closed by CRISTIANA BALDWIN on 01/19/25[facility] 12-10-2024 Telephone encounter Note* Telephone [...] seven days of my reply. See the SiVerion message reply for my assessment and plan. I spent a total of 5 minutes reviewing the patient's prior medical records and current request for medical advice, prescribing medications or ordering tests (if applicable), replying to the patient, and documenting the encounter. [facility]04-17-2025 Miscellaneous Notes* Telephone Encounter - [...] seven days of my reply. See the SiVerion message reply for my assessment and plan. I spent a total of 5 minutes reviewing the patient's prior medical records and current request for medical advice, prescribing medications or ordering tests (if applicable), replying to the patient, and documenting the encounter. documented in this encounterChillicothe [facility] Center04-07-2025 Instructions* Patient Instructions* Michael Alvarado MD - 11/30/2024 2:57 PM EDT - Increase Keppra dosage to 1,000 mg twice daily; prescription sent to [facility] pharmacy. - Continue taking Metoprolol 50 mg twice daily and Hydrochlorothiazide as prescribed; refills sent to pharmacy. - Referral to [facility] [place] for neurology consultation; contact them to schedule an appointment. - Complete fasting blood work one week before your next appointment. - X-ray of the left shoulder scheduled. - Referral to physical therapy for left shoulder pain. - Next appointment in 4 months. documented in this encounterChillicothe [facility] Center04-07-2025 NoteHNO ID: [id number] Author: MICHAEL ALVARADO MD Service: ? Author [...] Obesity, Class III, BMI 40-49.9 (morbid obesity) ([facility]) (E66.01) - BMI 41. - Discussed importance [...] Counseling 15 min . 2. Seizure disorder ([facility]) (G40.909) - Experiencing breakthrough seizures lasting approximately 5 minutes with postictal phase of about 20 minutes. - Currently on Keppra 750 mg BID; increased dosage to 1000 mg BID. - Referred to [facility] [place] for further evaluation and management. - Previous EEG performed; no MRI conducted. - Prescription sent to [facility] pharmacy. 3. Essential hypertension (I10) - Managed [...] .The medical conditions adve (more content not included)...[facility]04-07-2025 History of Present illness Narrative [...] mg BID. - Referred to [facility] [place] for further evaluation and management. - Previous EEG performed; no MRI conducted. - Prescription sent to [facility] pharmacy. 3. Essential hypertension (I10) - Managed [...] The patient consented to the use of Volex software for draft documentation of the visit consistent with [facility] s Notice of Privacy Practices. Michael Alvarado MD documented in this encounterChillicothe [facility] Center01-10-2025 Telephone encounter Note * Telephone Encounter - Rama Liang NP - 09/04/2024 9:23 AM EST Please fax eeg results to pcp dr. Yanet dempsey [phone] Miscellaneous Notes* Telephone Encounter - Rama Liang NP - 09/04/2024 9:23 AM EST Please fax eeg results to pcp dr. Vo thanks documented in this encounterCarondelet [id number] History of Present illness Narrative* Rama Liang [...] up plan, andreturn instructions. documented in this encounterCarondelet [id number] History of Present illness Narrative* Rama Liang [...] plan, and return instructions. documented in this encounterCarondelet [id number] Telephone encounter Note* Telephone Encounter - Joana Sanders - 04/14/2024 9:39 AM EDT Scheduled and confirmed with patient Joana Sanders [facility]08-20-2024 Miscellaneous Notes* Telephone Encounter - TommyJoana - 04/14/2024 9:39 AM EDT Scheduled and confirmed with patient Joana Sanders * Telephone Encounter - Clarisse Freeman - 04/13/2024 4:00 PM EDTSummary: Referral Received a referral from [facility]. Patient is referred for uncontrolled hypertension and hypertensive urgency. Scanned referral into chart for review. Please call patient to schedule at [phone]. documented in this encounterChillicothe [facility] Center08-19-2024 Telephone encounter Note * Telephone Encounter - Clarisse Freeman - 04/13/2024 4:00 PM EDTSummary: Referral Received a referral from [facility]. Patient is referred for uncontrolled hypertension and hypertensive urgency. Scanned referral into chart for review. Please call patient to schedule at [phone]. [facility]06-21-2022 History of Present illness Narrative* Michael Alvarado MD - 02/13/2022 9:03 AM EDT This note was created using Annexonriter. Subjective Evin Oviedo is a 36 year old male. The history is provided by the patient. No english language learner teacher was used. Seizures This is a recurrent [...] months Michael Alvarado MD documented in [facility] encounterWilson [facility] [place] [facility]* Diagnosis Seizure disorder (HCC)- Primary Unspecified epilepsy without mention of intractable epilepsy Primary hypertension Unspecified essential hypertension Smoking Tobacco use disorder Obesity, Class II, BMI 35-39.9 Obesity, unspecified documented in this encounter [facility] [place] [facility]* Diagnosis Partial symptomatic epilepsy with complex partial seizures, not intractable, without status epilepticus (CMS/HCC) documented in this encounter [facility]* Diagnosis Partial symptomatic epilepsy with complex partial seizures, not intractable, without status epilepticus (CMS/HCC)- Primary documented in this encounter [facility]* Diagnosis Obesity, Class III, BMI >= 40- Primary Morbid obesity Seizure disorder (HCC) Unspecified epilepsy without mention of intractable epilepsy Essential hypertension Unspecified essential hypertension Cigarette smoker Tobacco use disorder Tendinitis of left rotator cuff Disorders of bursae and tendons in shoulder region, unspecified documented in this encounter [facility] [place] [facility]* Diagnosis Seizure disorder (HCC)- Primary Unspecified epilepsy without mention of intractable epilepsy documented in this encounter [facility] [place] [facility]* Diagnosis Seizures (HCC)- Primary Other convulsions [facility] Diagnosis Seizure disorder (HCC)- Primary Unspecified epilepsy without mention of intractable epilepsy Tendinitis of left rotator cuff Disorders of bursae and tendons in shoulder region, unspecified documented in this encounter [facility] note* Diagnosis Onset Date Resolution Status Admit Date Epilepsy acute February 25, 2025 11:03am [facility] Work Phone: Reason for referral (narrative)No reason for referral information availableBlRonald Reagan [facility] Work Phone: Summary Purpose Family [...] or prosecute any alcohol or drug abuse patient.[facility] CenterIn the event this information is protected by the Federal Confidentiality of Alcohol and Drug Abuse Patient Records regulations: The Federal rules restrict any use of the information to criminally investigate or prosecute any alcohol or drug abuse patient.[facility] CenterIn the event this information is protected by the Federal Confidentiality of Alcohol and Drug Abuse Patient Records regulations: The Federal rules restrict any use of the information to criminally investigate or prosecute any alcohol or drug abuse patient.[facility] CenterIn the event this information is protected by the Federal Confidentiality of Alcohol and Drug Abuse Patient Records regulations: The Federal rules restrict any use of the information to criminally investigate or prosecute any alcohol or drug abuse patient.[facility] CenterIn the event this information is protected by the Federal Confidentiality of Alcohol and Drug Abuse Patient Records regulations: The Federal rules restrict any use of the information to criminally investigate or prosecute any alcohol or drug abuse patient.[facility] CenterIn the event this information is protected by the Federal Confidentiality of Alcohol and Drug Abuse Patient Records regulations: The Federal rules restrict any use of the information to criminally investigate or prosecute any alcohol or drug abuse patient.[facility] CenterIn the event this information is protected by the Federal Confidentiality of Alcohol and Drug Abuse Patient Records regulations: The Federal rules restrict any use of the information to criminally investigate or prosecute any alcohol or drug abuse patient.[facility] CenterIn the event this information is protected by the Federal Confidentiality of Alcohol and Drug Abuse Patient Records regulations: The Federal rules restrict any use of the information to criminally investigate or prosecute any alcohol or drug abuse patient.[facility] CenterIn the event this information is protected by the Federal Confidentiality of Alcohol and Drug Abuse Patient Records regulations: The Federal rules restrict any use of the information to criminally investigate or prosecute any alcohol or drug abuse patient.[facility] CenterIn the event this information is protected by the Federal Confidentiality of Alcohol and Drug Abuse Patient Records regulations: The Federal rules restrict any use of the information to criminally investigate or prosecute any alcohol or drug abuse patient.[facility] (unrecognized sect ion and content) No Status Records FoundNo Status Records FoundNo Status Records FoundNo Status Records FoundNo Status Records FoundNo Status Records FoundNo Status Records FoundNo Status Records FoundNo Status Records Found INFORMATION SOURCE (unrecogn ized section and content) DATE CREATED AUTHOR 11/20/2021 [facility] DATE CREATED AUTHOR AUTHOR'S ORGANIZ ATION 03/28/2022 [facility] ([place]) DATE CREATED AUTHOR AUTHOR'S ORGANIZ ATION 09/09/2024 [facility] EPIC DATE CREATED AUTHOR AUTHOR'S ORGANIZ ATION 09/12/2024 [facility] DATE CREATED AUTHOR AUTHOR'S ORGANIZ ATION 12/17/2024 [facility] DATE CREATED AUTHOR AUTHOR'S ORGANIZ ATION 12/29/2024 [facility] DATE CREATED AUTHOR AUTHOR'S ORGANIZ ATION 02/08/2025 [facility] DATE CREATED AUTHOR AUTHOR'S ORGANIZ ATION 02/23/2025 [facility] DATE CREATED AUTHOR AUTHOR'S ORGANIZ ATION 04/03/2025 [facility] Reason for Visit (unrecogniz ed section and [...] LEVEL 1 EST PT LEVEL 2 Self [facility] [address] [place], [place] [id number] Phone: tel: fax: Referral ID Status Reason Start Date Expiration Date Visits Requested Visits Authorized [id number] Pending Review OON/Self Pay Override 11/05/2024 02/13/2026 1 1 Reason Onset Date Comments Blow Down Operator Ed Follow Up 01/19/2025 Care Teams (unrecognized sec tion and content) Plug Machine Operator Relationship Specialty Start Date End Date Leida Vo MD [address] [place] [phone] PCP - General Family Medicine 03/09/24 Plug Machine Operator Relationship Specialty Start Date End Date Leida Vo MD [address] [place] [phone] PCP - General Family Medicine 03/09/24 Plug Machine Operator Relationship Specialty Start Date End Date Leida Vo MD [address] [place] [phone] PCP - General Family Medicine 03/09/24 Plug Machine Operator Relationship Specialty Start Date End Date Dave Vo MD [address] [place] [address] PCP - General Internal Medicine 11/04/23 Plug Machine Operator Relationship Specialty Start Date End Date Dave Vo MD [address] [place], [place] [id number] PCP - General Internal Medicine 11/04/23 Plug Machine Operator Relationship Specialty Start Date End Date Dave Vo MD [address] [place] [address] PCP - General Internal Medicine 11/04/23 Plug Machine Operator Relationship Specialty Start Date End Date Michael Alvarado MD [address] [place] [address] PCP - General Family Medicine 11/30/24 Plug Machine Operator Relationship Specialty Start Date End Date Michael Alvarado MD [address] [place] [address] PCP - General Family Medicine 11/30/24 Plug Machine Operator Relationship Specialty Start Date End Date Michael Alvarado MD [address] [place] [address] PCP - General Family Medicine 11/30/24 Plug Machine Operator Relationship Specialty Start Date End Date Michael Alvarado MD [address] [place] [address] PCP - General Family Medicine 11/30/24 Team [...] BE BASED ON THE PRIMARY CLINICAL RECORDS. [facility]. provides no warranty or guarantee of the accuracy or completeness of information in this document.
== END | disposition home or self-care (01) ==
LOC: OPMRI 07:03
PROVIDERS: Referring Provider Psychiatry & Neurology Neurology; Visit Provider Psychiatry & Neurology Neurology
DX: G40.909 Epilepsy, unspecified, not intractable, without status epilepticus (principal)
CPT/HCPCS: 70553; A9575